=== PATIENT | male | born 1940 | race Caucasian/White ===

== ENCOUNTER 2018-11-24 07:57 | Day surgery (SDC) | payer MEDICARE ==
[~2018-11-24 07:57] MED LIST: Lactated Ringers 1,000 ML IV SCH; Sodium Chloride 0.9% 10 ML SDV IV PRN; Sodium Chloride 0.9% 10 ML Syringe FLUSH PRN; Sodium Chloride 0.9% 2.5 ML Syringe FLUSH PRN; ceFAZolin 1 GM in Premix Bag 1 BAG IV ONE
[2018-11-24] MEDS ORDERED: Propofol 200 MG/20 ML SDV ONE (08:55)
--- NOTE | 2018-11-24 09:08 | PCM.PREANE ---
Preanesthetic Assessment - Anesthesia/Transfusion/Family Hx Anesthesia History: Prior Anesthesia Without Reaction Family History of Anesthesia Reaction: No Transfusion History: No Prior Transfusion(s) Intubation History: Unknown - Review of Systems General: No Symptoms Pulmonary: No Symptoms Cardiovascular: No Symptoms Gastrointestinal: No Symptoms Neurological: No Symptoms Other: Reports: None - Physical Assessment NPO Status Date: 11/23/18 NPO Status Time: 11:59 O2 Sat by Pulse Oximetry: 94 Respiratory Rate: 18 Vital Signs: Last Vital Signs Temp 36.9 C 11/24/18 08:10 Pulse 90 11/24/18 08:10 Resp 18 11/24/18 08:10 BP 139/89 11/24/18 08:10 Pulse Ox 94 L 11/24/18 08:10 Height: 5 ft 10 in Weight: 88.451 kg ASA Class: 3 Mental Status: Alert & Oriented x3 Airway Class: Mallampati = 2 Dentition: Reports: Dentures (upper and lower) Thyro-Mental Finger Breadths: 3 Mouth Opening Finger Breadths: 3 ROM/Head Extension: Full Lungs: Clear to Auscultation, Normal Respiratory Effort, Decreased Breath Sounds Cardiovascular: Regular Rate, Regular Rhythm - Allergies Allergies/Adverse Reactions: Allergies Allergy/AdvReac Type Severity Reaction Status Date / Time Sulfa (Sulfonamide Allergy Cannot Verified 11/22/18 13:24 Antibiotics) Remember - Blood Blood Available: No - Anesthesia Plan Pre-Op Medication Ordered: None - Acknowledgements Anesthesia Type Planned: Spinal Pt an Appropriate Candidate for the Planned Anesthesia: Yes Alternatives and Risks of Anesthesia Discussed w Pt/Guardian: Yes Pt/Guardian Understands and Agrees with Anesthesia Plan: Yes PreAnesthesia Questionnaire HEENT History: Reports: Other (See Below) Other HEENT History: wears glasses, has upper and lower dentures Respiratory History: Reports: COPD, SOB (after 1-2 blocks walk, sats 91% on room air ') Musculoskeletal History: Reports: Gout - Past Surgical History HEENT Surgical History: Reports: Tonsillectomy - SUBSTANCE USE Smoking Status *Q: Former Smoker Tobacco Use Within Last Twelve Months: No Recreational Drug Use History: No - HOME MEDS Home Medications: Home Meds Albuterol [Ventolin HFA] 1 puff INH ASDIRECTED PRN 11/22/18 [History] Allopurinol [Zyloprim] 100 mg PO ASDIRECTED PRN 11/22/18 [History] Ciprofloxacin HCl [Cipro] 500 mg PO BID 11/22/18 [History] Salmeterol Xinafoate [Serevent Diskus] 1 puff INH BID 11/22/18 [History] Tiotropium [place] [Spiriva Respimat] 2 puff INH QPM 11/22/18 [History] - CURRENT (IN HOUSE) MEDS Current Meds: Current Medications Lactated Ringer's (Ringers, Lactated) 1,000 mls @ 100 mls/hr IV ASDIRECTED TRANG Last Admin: 11/24/18 08:20 Dose: 100 mls/hr Sodium Chloride (Saline Flush) 10 ml FLUSH ASDIRECTED PRN PRN Reason: Keep Vein Open Sodium Chloride (Saline Flush) 2.5 ml FLUSH ASDIRECTED PRN PRN Reason: Keep Vein Open Sodium Chloride (Normal Saline) 10 ml IV ASDIRECTED PRN PRN Reason: IV Use Discontinued Medications Cefazolin Sodium/Dextrose 1 gm (/ Premix) 50 mls @ 100 mls/hr IV ONCALL ONE Stop: 11/24/18 00:30 Propofol (Diprivan 20 Ml) Confirm Administered Dose 200 mg .ROUTE .STK-MED ONE Stop: 11/24/18 08:56
[2018-11-24] MEDS ORDERED: fentaNYL 100 MCG/2 ML SDV ONE (09:22)
[2018-11-24] MEDS ORDERED: Ondansetron 4 MG/2 ML SDV ONE (09:33)
[2018-11-24] MEDS ORDERED: ePHEDrine 50 MG/ML SDV ONE (10:14)
[2018-11-24] MEDS ORDERED: Allopurinol 100 MG Tab PO PRN (10:47)
[2018-11-24] MEDS ORDERED: Albuterol 8 GM Inhaler INH PRN (10:47)
--- NOTE | 2018-11-24 14:21 | OR ---
SURGEON: Lissette Florez M.D. 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 OPERATION: TURBT. DESCRIPTION OF PROCEDURE: The patient was given spinal anesthesia. He is in the dorsal lithotomy position, prepped and draped in sterile drapes. A 26-Barb[place] resectoscope was introduced into the bladder without difficulty. The tumor was resected in its entirety. Tumor was submitted in 2 specimens; the tumor as the first specimen and base of bladder tumor as second specimen. The tumor appeared solid and is potentially invasive. Estimated blood loss was minimal. At the end, an 18- Barb[place] Coude tip catheter was placed in the bladder connected to straight drainage. PLAN: I will see the patient in the first part of next week to discuss the pathology report. JOSEFINA / MARY /[id number]
[2018-11-24] MEDS ORDERED: Non-Formulary Medication 1 Each (Tiotropium Bromide [Spiriva Respimat] 2 PUFF) INH SCH (18:00)
[2018-11-24] MEDS ORDERED: Ciprofloxacin 500 MG Tab PO SCH (21:00)
[2018-11-24] MEDS ORDERED: Salmeterol Xinafoate 50 Mcg 28 Puff/Diskus INH SCH (21:00)
== END 2018-11-24 13:28 | disposition home or self-care (01) ==
LOC: MW.SDS 07:57
PROVIDERS: ATTEND Urology
DX: C67.3 Malignant neoplasm of anterior wall of bladder (principal); E11.9 Type 2 diabetes mellitus without complications; J98.2 Interstitial emphysema; M10.9 Gout, unspecified; Z88.2 Allergy status to sulfonamides; Z87.891 Personal history of nicotine dependence; Z79.899 Other long term (current) drug therapy
CPT/HCPCS: 52240; 88305; 88307; J2405; J2704; J3010; J7120; 00912

== ENCOUNTER 2018-11-24 23:18 | Emergency (ER) | payer MEDICARE ==
--- NOTE | 2018-11-24 23:49 | EDM.PDOC ---
ED HPI GENERAL MEDICAL PROBLEM - General Chief Complaint: Genitourinary Problem Stated Complaint: TROUBLE URINATING AFTER SURGERY Time Seen by Provider: 11/24/18 23:41 - History of Present Illness INITIAL COMMENTS - FREE TEXT/NARRATIVE: HISTORY AND PHYSICAL: History of present illness: The patient is a 77-year-old male who underwent same-day surgery with Dr. Florez for removal of a bladder tumor this morning and was discharged postoperatively with a Cid catheter in place but he says that it became clogged and was not draining at about 4 PM. He called the nurse here at the hospital and he was instructed to cut the balloon and removed the catheter. He says that since that time he has only had a small amount of dribbling of urine and he feels like he is retaining urine. He has pressure in his suprapubic area but no flank pain no upper abdominal pain no nausea vomiting lightheadedness dizziness chest pain or shortness of breath. He says that there was blood in his urine prior to removal and he thinks it just got clogged up. He was told by Dr. Florez that this would occur. Review of systems: As per history of present illness and below otherwise all systems reviewed and negative. Past medical history: As per history of present illness and as reviewed below otherwise noncontributory. Surgical history: As per history of present illness and as reviewed below otherwise noncontributory. Social history: No reported history of drug or alcohol abuse. Family history: As per history of present illness and as reviewed below otherwise noncontributory. Physical exam: General: Well-developed well-nourished man who is nontoxic and vital signs are noted by me HEENT: Atraumatic, normocephalic, negative for conjunctival pallor or scleral icterus, mucous membranes moist, throat clear, neck supple, nontender, trachea midline. Lungs: Clear to auscultation, breath sounds equal bilaterally, chest nontender. Heart: S1S2, regular, negative for clicks, rubs, or JVD. Abdomen: Soft, nondistended, there is suprapubic tenderness and fullness of the bladder is appreciated.. Negative for masses or hepatosplenomegaly. Negative for costovertebral tenderness. Pelvis: Stable nontender. Genitourinary: Deferred. Rectal: Deferred. Extremities: Atraumatic, negative for cords or calf pain. Neurovascular unremarkable. Neuro: Awake, alert, oriented. Cranial nerves II through XII unremarkable. Cerebellum unremarkable. Motor and sensory unremarkable throughout. Exam nonfocal. Diagnostics: None Therapeutics: Cid catheter placement with leg bag, instructions on irrigation per nursing [id number]: After [place] was notified of this case and agrees with care plan of the knee and the patient home with ability to irrigate the Cid if it stops draining. Impression: Urinary retention postoperatively status post bladder tumor removal Definitive disposition and diagnosis as appropriate pending reevaluation and review of above. suprapubic Pain Score (Numeric/FACES): 7 - Related Data Allergies Allergy/AdvReac Type Severity Reaction Status Date / Time Sulfa (Sulfonamide Allergy Cannot Verified 11/24/18 23:26 Antibiotics) Remember Home Meds: Home Meds Albuterol [Ventolin HFA] 1 puff INH ASDIRECTED PRN 11/22/18 [History] Allopurinol [Zyloprim] 100 mg PO ASDIRECTED PRN 11/22/18 [History] Ciprofloxacin HCl [Cipro] 500 mg PO BID 11/22/18 [History] Salmeterol Xinafoate [Serevent Diskus] 1 puff INH BID 11/22/18 [History] Tiotropium [place] [Spiriva Respimat] 2 puff INH QPM 11/22/18 [History] Past Medical History HEENT History: Reports: Other (See Below) Other HEENT History: wears glasses, has upper and lower dentures Respiratory History: Reports: COPD, SOB (after 1-2 blocks walk, sats 91% on room air ') Musculoskeletal History: Reports: Gout - Past Surgical History HEENT Surgical History: Reports: Tonsillectomy ED ROS GENERAL - Review of Systems Review Of Systems: ROS reveals no pertinent complaints other than HPI. ED EXAM, GENERAL - Physical Exam Exam: See Below (See dictation) Course - Vital Signs Last Recorded V/S: Last Vital Signs Temp 36.5 C 11/24/18 23:30 Pulse 105 H 11/24/18 23:30 Resp 18 11/24/18 23:30 BP 141/70 H 11/24/18 23:30 Pulse Ox 93 L 11/24/18 23:30 - Orders/Labs/Meds Orders: Active Orders 24 hr Category Date Time Status Cid Catheter Insertion [Insert Urinary Catheter] [OM. Care 11/24/18 23:46 Ordered PC] Q24H Urinary Catheter Assessment [RC] ASDIRECTED Care 11/24/18 23:47 Active Departure - Departure Time of Disposition: 00:48 Disposition: Home, Self-Care 01 Condition: Good Clinical Impression: Urinary retention - Discharge Information Referrals: Shakeel Cabral MD [Primary Care Provider] - Forms: ED Department Discharge Additional Instructions: The following information is given to patients seen in the emergency department who are being discharged to home. This information is to outline your options for follow-up care. We provide all patients seen in our emergency department with a follow-up referral. The need for follow-up, as well as the timing and circumstances, are variable depending upon the specifics of your emergency department visit. If you don't have a primary care physician on staff, we will provide you with a referral. We always advise you to contact your personal physician following an emergency department visit to inform them of the circumstance of the visit and for follow-up with them and/or the need for any referrals to a consulting specialist. The emergency department will also refer you to a specialist when appropriate. This referral assures that you have the opportunity for followup care with a specialist. All of these measure are taken in an effort to provide you with optimal care, which includes your followup. Under all circumstances we always encourage you to contact your private physician who remains a resource for coordinating your care. When calling for followup care, please make the office aware that this follow-up is from your recent emergency room visit. If for any reason you are refused follow-up, please contact the [facility] emergency department at and ask to speak to the emergency department charge nurse. [facility] [place], [place] [id number] Irrigate the Cid as you are shown by the ER nurse if it stops flowing or it becomes clogged. Take all home medications and keep all appointments with Dr. Florez. Please notify him of any problems or complications and return to ER as needed and as discussed - My Orders Last 24 Hours: My Active Orders 11/24/18 23:46 Cid Catheter Insertion [Insert Urinary Catheter] [OM.PC] Q24H 11/24/18 23:47 Urinary Catheter Assessment [RC] ASDIRECTED - Assessment/Plan Last 24 Hours: My Active Orders 11/24/18 23:46 Cid Catheter Insertion [Insert Urinary Catheter] [OM.PC] Q24H 11/24/18 23:47 Urinary Catheter Assessment [RC] ASDIRECTED
== END 2018-11-25 01:25 | disposition home or self-care (01) ==
LOC: MW.ED 23:18
DX: N99.89 Other postprocedural complications and disorders of genitourinary system (principal); R33.9 Retention of urine, unspecified; J44.9 Chronic obstructive pulmonary disease, unspecified; Z98.890 Other specified postprocedural states; Z88.2 Allergy status to sulfonamides; M10.9 Gout, unspecified; Z79.51 Long term (current) use of inhaled steroids; C67.3 Malignant neoplasm of anterior wall of bladder; E11.9 Type 2 diabetes mellitus without complications; J98.2 Interstitial emphysema; Z87.891 Personal history of nicotine dependence; Z79.899 Other long term (current) drug therapy
CPT/HCPCS: 36415; 51700; 52240; 80053; 85025; 85610; 88305; 88307; 99283; A9270; J2405; J2704; J3010; J7120; 00912

== ENCOUNTER 2018-11-25 22:02 | Emergency (ER) | payer MEDICARE ==
--- NOTE | 2018-11-25 22:09 | EDM.PDOC ---
ED HPI GENERAL MEDICAL PROBLEM - General Chief Complaint: Genitourinary Problem Stated Complaint: CATHETER ISSUES Time Seen by Provider: 11/25/18 22:06 - History of Present Illness INITIAL COMMENTS - FREE TEXT/NARRATIVE: HISTORY AND PHYSICAL: History of present illness: The patient is a 77-year-old male who underwent resection of a bladder tumor yesterday with Dr. Florez in same-day surgery and was discharged home with a catheter in place which subsequently got clogged and was not draining and he contacted the postop nurse who told him to remove it which he did. He did this at 4:30 yesterday and then presented to our ER later that evening to see me saying that he was unable to urinate. A new catheter was placed by nursing without complication and the catheter was irrigated and was producing a lot of blood and clots and the patient and were instructed on how to irrigate the catheter to keep it flowing. Dr. Florez was contacted and said that he wanted the patient to be discharged home with those instructions and tools to irrigate the Cid if it became clogged. The patient now presents to the ED again this evening with complaints that the catheter is not draining despite all of their attempts to get it working and he also has a headache. The patient says that the catheter was draining very well and he did have to irrigated about 12 noon and had no issues with it and then it continued to drain until about 5:00 when they tried irrigated and could not get it open. They're here now to get the Cid reevaluated and to get it back open. The patient has not had any fevers chills nausea vomiting abdominal pain and flank pain does not feel lightheaded or dizzy. He's had no chest pain or shortness of breath and he says that he has a headache and he wasn't sure if he could take anything for it because he's on antibiotics, ciprofloxacin Review of systems: As per history of present illness and below otherwise all systems reviewed and negative. Past medical history: As per history of present illness and as reviewed below otherwise noncontributory. Surgical history: As per history of present illness and as reviewed below otherwise noncontributory. Social history: No reported history of drug or alcohol abuse. Family history: As per history of present illness and as reviewed below otherwise noncontributory. Physical exam: General: Well-developed well-nourished man who is nontoxic and vital signs are noted by me. The patient ambulatory into the ED without issue and is cooperative and moves easily. HEENT: Atraumatic, normocephalic, negative for conjunctival pallor or scleral icterus, mucous membranes moist, throat clear, neck supple, nontender, trachea midline. Lungs: Clear to auscultation, breath sounds equal bilaterally, chest nontender. Heart: S1S2, regular rhythm slightly tachycardic rate of my evaluation but no overt murmurs Abdomen: Soft, nondistended, there is some mild suprapubic discomfort with palpation but no rebound or guarding Negative for masses or hepatosplenomegaly. Pelvis: Stable nontender. Genitourinary: Deferred. Rectal: Deferred. Extremities: Atraumatic, negative for cords or calf pain. Neurovascular unremarkable. Neuro: Awake, alert, oriented. Cranial nerves II through XII unremarkable. Cerebellum unremarkable. Motor and sensory unremarkable throughout. Exam nonfocal. Diagnostics: CBC INR CMP Therapeutics: Nursing will irrigate Cid and if unable to open up will change the Cid catheter Nursing was able to open up the Cid catheter and is now flowing easily. Patient's heart rate has normalized without intervention and his blood pressure on my last evaluation was 120/78. I will again discuss this case with Dr. Florez so he knows mora's events. Impression: Cid catheter malfunction Definitive disposition and diagnosis as appropriate pending reevaluation and review of above. headache Pain Score (Numeric/FACES): 2 - Related Data Allergies Allergy/AdvReac Type Severity Reaction Status Date / Time Sulfa (Sulfonamide Allergy Cannot Verified 11/25/18 22:10 Antibiotics) Remember Home Meds: Home Meds Albuterol [Ventolin HFA] 1 puff INH ASDIRECTED PRN 11/22/18 [History] Allopurinol [Zyloprim] 100 mg PO ASDIRECTED PRN 11/22/18 [History] Ciprofloxacin HCl [Cipro] 500 mg PO BID 11/22/18 [History] Salmeterol Xinafoate [Serevent Diskus] 1 puff INH BID 11/22/18 [History] Tiotropium [place] [Spiriva Respimat] 2 puff INH QPM 11/22/18 [History] Past Medical History HEENT History: Reports: Other (See Below) Other HEENT History: wears glasses, has upper and lower dentures Respiratory History: Reports: COPD, SOB (after 1-2 blocks walk, sats 91% on room air ') Musculoskeletal History: Reports: Gout - Past Surgical History HEENT Surgical History: Reports: Tonsillectomy Social & Family History - Family History Family Medical History: Noncontributory ED ROS GENERAL - Review of Systems Review Of Systems: ROS reveals no pertinent complaints other than HPI. ED EXAM, GENERAL - Physical Exam Exam: See Below (See dictation) Course - Vital Signs Last Recorded V/S: Last Vital Signs Temp 36.8 C 11/25/18 22:10 Pulse 90 11/25/18 22:56 Resp 18 11/25/18 22:10 BP 108/75 11/25/18 22:56 Pulse Ox 95 11/25/18 22:10 - Orders/Labs/Meds Orders: Active Orders 24 hr Category Date Time Status Communication Order [RC] STAT Care 11/25/18 22:09 Active Labs: Laboratory Tests 11/25/18 11/25/18 11/25/18 Range/Units 22:16 22:16 22:16 WBC 8.36 (4.0-11.0) K/uL RBC 3.69 L (4.50-5.90) M/uL Hgb 12.2 L (13.0-17.0) g/dL Hct 37.1 L (38.0-50.0) % MCV 100.5 H (80.0-98.0) fL MCH 33.1 H (27.0-32.0) pg MCHC 32.9 (31.0-37.0) g/dL RDW Std Deviation 48.7 (28.0-62.0) fl RDW Coeff of Mat 14 (11.0-15.0) % Plt Count 144 L (150-400) K/uL MPV 9.90 (7.40-12.00) fL Add Manual Diff YES Neutrophils % (Manual) 56 (48.0-80.0) % Band Neutrophils % 2 % Lymphocytes % (Manual) 27 (16.0-40.0) % Monocytes % (Manual) 13 (0.0-15.0) % Eosinophils % (Manual) 2 (0.0-7.0) % Absolute Seg Neuts 4.7 (1.4-5.7) Band Neutrophils # 0.2 Lymphocytes # (Manual) 2.3 (0.6-2.4) Monocytes # (Manual) 1.1 H (0.0-0.8) Eosinophils # (Manual) 0.2 (0.0-0.7) INR 1.10 Sodium 138 (136-148) mmol/L Potassium 4.1 (3.5-5.1) mmol/L Chloride 103 (98-107) mmol/L Carbon Dioxide 26.0 (21.0-32.0) mmol/L BUN 19 H (7.0-18.0) mg/dL Creatinine 1.0 (0.8-1.3) mg/dL Est Cr Clr Drug Dosing 62.86 mL/min Estimated GFR (MDRD) > 60.0 ml/min Glucose 176 H (74-106) mg/dL Calcium 9.2 (8.5-10.1) mg/dL Total Bilirubin 0.4 (0.2-1.0) mg/dL AST 18 (15-37) IU/L ALT 27 (14-63) IU/L Alkaline Phosphatase 64 (46-116) U/L Total Protein 7.2 (6.4-8.2) g/dL Albumin 3.8 (3.4-5.0) g/dL Globulin 3.4 (2.6-4.0) g/dL Albumin/Globulin Ratio 1.1 (0.9-1.6) Meds: Medications Discontinued Medications Generic Name Dose Route Start Last Admin Trade Name Dayneq PRN Reason Stop Dose Admin Acetaminophen 1,000 mg 11/25/18 22:17 11/25/18 22:47 Tylenol Extra Strength PO 11/25/18 22:18 1,000 mg ONETIME ONE Administration Departure - Departure Time of Disposition: 23:10 Disposition: Home, Self-Care 01 Condition: Good Clinical Impression: Malfunction of Cid catheter - Discharge Information Referrals: Shakeel Cabral MD [Primary Care Provider] - Forms: ED Department Discharge Additional Instructions: The following information is given to patients seen in the emergency department who are being discharged to home. This information is to outline your options for follow-up care. We provide all patients seen in our emergency department with a follow-up referral. The need for follow-up, as well as the timing and circumstances, are variable depending upon the specifics of your emergency department visit. If you don't have a primary care physician on staff, we will provide you with a referral. We always advise you to contact your personal physician following an emergency department visit to inform them of the circumstance of the visit and for follow-up with them and/or the need for any referrals to a consulting specialist. The emergency department will also refer you to a specialist when appropriate. This referral assures that you have the opportunity for followup care with a specialist. All of these measure are taken in an effort to provide you with optimal care, which includes your followup. Under all circumstances we always encourage you to contact your private physician who remains a resource for coordinating your care. When calling for followup care, please make the office aware that this follow-up is from your recent emergency room visit. If for any reason you are refused follow-up, please contact the [facility] emergency department at and ask to speak to the emergency department charge nurse. [facility] [address] [place] [id number] Continue with all home medications including the antibiotic your given by Dr. Florez and contact his office on Wednesday morning to check in and let him know how you are doing. Continue to irrigate the Cid catheter as you need for any blockages and return to ER as needed and as discussed. - My Orders Last 24 Hours: My Active Orders 11/25/18 22:09 Communication Order [RC] STAT - Assessment/Plan Last 24 Hours: My Active Orders 11/25/18 22:09 Communication Order [RC] STAT
[2018-11-25] MEDS ORDERED: Acetaminophen 500 MG Tab PO ONE (22:17)
[2018-11-25 22:42] LABS: BLOOD UREA NITROGEN,BUN 19 mg/dL (7.0-18.0); CHLORIDE,CL 103 mmol/L (98-107); GLUCOSE RANDOM 176 mg/dL (74-106); POTASSIUM,K 4.1 mmol/L (3.5-5.1); SODIUM,NA 138 mmol/L (136-148)
== END 2018-11-25 23:19 | disposition home or self-care (01) ==
LOC: MW.ED 22:02
DX: T83.091A Other mechanical complication of indwelling urethral catheter, initial encounter (principal); J44.9 Chronic obstructive pulmonary disease, unspecified; M10.9 Gout, unspecified; Z88.2 Allergy status to sulfonamides; Z79.51 Long term (current) use of inhaled steroids
CPT/HCPCS: 36415; 51700; 80053; 85025; 85610; 99283; A9270

== ENCOUNTER 2018-11-26 10:02 | Emergency (ER) | payer MEDICARE ==
--- NOTE | 2018-11-26 10:34 | EDM.PDOC ---
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 The day after the surgery, patient was having a similar issue and had contacted the postop nurse who instructed him to the remove the catheter. He then presented to the ER 2 days ago with not being able to urinate. In the ER, they placed a new catheter without complications and he was irrigated and drinking and patient was discharged with instructions on irrigation Cid catheter. Patient also presented approximately 12 hours ago with the same complaint of the catheter not draining. Approximately 12 hours ago , nursing staff was able to irrigate the Cid and patient was discharged from the ED. Patient presents again, now 12 hours from last visit in order to get the Cid reevaluated to get it back open. Patient states when he had left the ER 12 hours ago and the bag was draining appropriately and then he had gone to bed. Patient states he woke up in the middle the night with a sensation of needing to urinate. Patient states he had tried irrigating the catheter on several occasions since the middle of the night without being successful. Patient now is here in the ED for assistance with getting the catheter to drain properly. Throughout all of these ER visits, Dr. Florez was notified and patient does have an appointment with Dr. Florez Wednesday at 8 AM. Patient denies any new symptoms or any other concerns at this time. Patient denies fever, chills, chest pain, shortness of breath, or cough. Denies headache, neck stiff ness, change in vision, syncope, or near syncope. Denies nausea, vomiting, abdominal pain, diarrhea, constipation, or dysuria. Has not noted any blood in urine or stool. Patient has been eating and drinking appropriately. Review of systems: As per history of present illness and below otherwise all systems reviewed and negative. Past medical history: As per history of present illness and as reviewed below otherwise noncontributory. Surgical history: As per history of present illness and as reviewed below otherwise noncontributory. Social history: See social history for further information Family history: As per history of present illness and as reviewed below otherwise noncontributory. Physical exam: General: Patient is alert, oriented, and in no acute distress. Patient sitting comfortably on exam table. HEENT: Atraumatic, normocephalic, pupils equal and reactive bilaterally, negative for conjunctival pallor or scleral icterus, mucous membranes moist, TMs normal bilaterally, throat clear, neck supple, nontender, trachea midline. No drooling or trismus noted. No meningeal signs. No hot potato voice noted. Lungs: Clear to auscultation, breath sounds equal bilaterally, chest nontender. Heart: S1S2, regular rate and rhythm without overt murmur Abdomen: Soft, nondistended, nontender. Negative for masses or hepatosplenomegaly. Negative for costovertebral tenderness. Pelvis: Stable nontender. Genitourinary: Deferred. Rectal: Deferred. Skin: Intact, warm, dry. No lesions or rashes noted. Extremities: Atraumatic, negative for cords or calf pain. Neurovascular unremarkable. Neuro: Awake, alert, oriented. Cranial nerves II through XII unremarkable. Cerebellum unremarkable. Motor and sensory unremarkable throughout. Exam nonfocal. Notes: Nursing staff did find a clot at the very end of the catheter where it meets the leg bag. After removing this clot, was able to get 300 mL of urine output and urine flowing appropriately into leg bag. Patient remains asymptomatic and without any new concerns. Discussed the importance for follow-up with Dr. Florez. Voices understanding and is agreeable to plan of care. Denies any further questions or concerns at this time. Diagnostics: None Therapeutics: Cid tubing irrigation Prescription: None Impression: Medical Screening Exam Plan: 1. You can continue to irrigate the Cid catheter to as demonstrated and as discussed. Also, reminder to flush the tubing of the bag. 2. Follow-up with Dr. Florez as scheduled and as discussed. Return to the ED as needed and as discussed. Definitive disposition and diagnosis as appropriate pending reevaluation and review of above. Bladder Pain Score (Numeric/FACES): 5 - Related Data Allergies Allergy/AdvReac Type Severity Reaction Status Date / Time Sulfa (Sulfonamide Allergy Cannot Verified 11/26/18 10:05 Antibiotics) Remember Home Meds: Home Meds Albuterol [Ventolin HFA] 1 puff INH ASDIRECTED PRN 11/22/18 [History] Allopurinol [Zyloprim] 100 mg PO ASDIRECTED PRN 11/22/18 [History] Ciprofloxacin HCl [Cipro] 500 mg PO BID 11/22/18 [History] Salmeterol Xinafoate [Serevent Diskus] 1 puff INH BID 11/22/18 [History] Tiotropium Peggs [Spiriva Respimat] 2 puff INH QPM 11/22/18 [History] Past Medical History HEENT History: Reports: Other (See Below) Other HEENT History: wears glasses, has upper and lower dentures Cardiovascular History: Reports: None Respiratory History: Reports: COPD, SOB (after 1-2 blocks walk, sats 91% on room air ') Gastrointestinal History: Reports: None Genitourinary History: Reports: None Musculoskeletal History: Reports: Gout Neurological History: Reports: None Psychiatric History: Reports: None Endocrine/Metabolic History: Reports: None Hematologic History: Reports: None Immunologic History: Reports: None Oncologic (Cancer) History: Reports: None Dermatologic History: Reports: None - Infectious Disease History Infectious Disease History: Reports: None - Past Surgical History HEENT Surgical History: Reports: Tonsillectomy Social & Family History - Family History Family Medical History: Noncontributory ED ROS GENERAL - Review of Systems Review Of Systems: ROS reveals no pertinent complaints other than HPI. ED EXAM, GENERAL - Physical Exam Exam: See Below (see dictation) Course - Vital Signs Last Recorded V/S: Last Vital Signs Temp 36.8 C 11/26/18 10:05 Pulse 93 11/26/18 10:05 Resp 18 11/26/18 10:05 BP 122/76 11/26/18 10:05 Pulse Ox Departure - Departure Time of Disposition: 10:48 Disposition: Home, Self-Care 01 Clinical Impression: Encounter for medical screening examination - Discharge Information Referrals: PCP,Unknown [Primary Care Provider] - Forms: ED Department Discharge Additional Instructions: The following information is given to patients seen in the emergency department who are being discharged to home. This information is to outline your options for follow-up care. We provide all patients seen in our emergency department with a follow-up referral. The need for follow-up, as well as the timing and circumstances, are variable depending upon the specifics of your emergency department visit. If you don't have a primary care physician on staff, we will provide you with a referral. We always advise you to contact your personal physician following an emergency department visit to inform them of the circumstance of the visit and for follow-up with them and/or the need for any referrals to a consulting specialist. The emergency department will also refer you to a specialist when appropriate. This referral assures that you have the opportunity for follow-up care with a specialist. All of these measure are taken in an effort to provide you with optimal care, which includes your follow-up. Under all circumstances we always encourage you to contact your private physician who remains a resource for coordinating your care. When calling for follow-up care, please make the office aware that this follow-up is from your recent emergency room visit. If for any reason you are refused follow-up, please contact the [facility] Emergency Department at and asked to speak to the emergency department charge nurse. [facility] [address] [place] [address] [place] [address] 1. You can continue to irrigate the Cid catheter to as demonstrated and as discussed. Also, reminder to flush the tubing of the bag. 2. Follow-up with Dr. Florez as scheduled and as discussed. Return to the ED as needed and as discussed.
== END 2018-11-26 11:16 | disposition home or self-care (01) ==
LOC: MW.ED 10:02
DX: Z13.9 Encounter for screening, unspecified (principal); J44.9 Chronic obstructive pulmonary disease, unspecified; Z88.2 Allergy status to sulfonamides; Z79.899 Other long term (current) drug therapy
CPT/HCPCS: 99282; 99283

== ENCOUNTER 2018-11-27 23:24 | Emergency (ER) | payer MEDICARE ==
--- NOTE | 2018-11-27 23:45 | EDM.PDOC ---
ED HPI GENERAL MEDICAL PROBLEM - General Chief Complaint: Genitourinary Problem Stated Complaint: CATHETER ISSUES Time Seen by Provider: 11/27/18 23:25 - History of Present Illness INITIAL COMMENTS - FREE TEXT/NARRATIVE: HISTORY AND PHYSICAL: History of present illness: Patient is a 77-year-old male who is well-known to me as I'm seeing him in the ED after his surgery with Dr. Florez on November 24 for removal of a bladder tumor and having recurrent problems with his Cid catheter. The patient has been here 3 prior for blockage of the Cid catheter and poor drainage. He was treated all prior times with just some irrigation of the catheter without having to re-change it. The patient says that today he was noticing that the urine output was becoming more pink in color and less bloody and he was not seeing as many clots or mucous. He said he irrigated it several times just to make sure it was working and then this evening he said that there was diminished flow and he was concerned so he came here. He says that he didn't feel like he could irrigated properly. He does not feel like he has excessive amount of urine in his bladder as he has been on top of this and following it very closely. He has no systemic complaints of fever chills nausea vomiting or abdominal pain. He is not lightheaded or dizzy. He has an appointment for follow -up with Dr. Florez on Wednesday and he plans on calling him in the morning, Wednesday. On 2 of the patient's prior episodes with me I did notify Dr. Florez of the problems so he is aware. Review of systems: As per history of present illness and below otherwise all systems reviewed and negative. Past medical history: As per history of present illness and as reviewed below otherwise noncontributory. Surgical history: As per history of present illness and as reviewed below otherwise noncontributory. Social history: No reported history of drug or alcohol abuse. Family history: As per history of present illness and as reviewed below otherwise noncontributory. Physical exam: General: Well-developed well-nourished man who is nontoxic and vital signs are noted by me HEENT: Atraumatic, normocephalic, negative for conjunctival pallor or scleral icterus, mucous membranes moist, throat clear, neck supple, nontender, trachea midline. Lungs: Clear to auscultation, breath sounds equal bilaterally, chest nontender. Heart: S1S2, regula rate and rhythm no overt murmurs Abdomen: Soft, nondistended, nontender. Pelvis: Deferred Genitourinary: Deferred. Rectal: Deferred. Extremities: Atraumatic, no pedal edema and full range of motion Neurovascular unremarkable. Neuro: Awake, alert, oriented. Cranial nerves II through XII unremarkable. Cerebellum unremarkable. Motor and sensory unremarkable throughout. Exam nonfocal. Dark pink/light red fluid/urine is seen in the leg bag as well as the tubing of the Cid catheter. Diagnostics: none Therapeutics: Irrigation of Cid After nursing attempted to irrigate the Cid she was unable so the Cid catheter was changed for sterile protocol. Impression: Cid catheter malfunction Definitive disposition and diagnosis as appropriate pending reevaluation and review of above. - Related Data Allergies Allergy/AdvReac Type Severity Reaction Status Date / Time Sulfa (Sulfonamide Allergy Cannot Verified 11/27/18 23:33 Antibiotics) Remember Home Meds: Home Meds Albuterol [Ventolin HFA] 1 puff INH ASDIRECTED PRN 11/22/18 [History] Allopurinol [Zyloprim] 100 mg PO ASDIRECTED PRN 11/22/18 [History] Ciprofloxacin HCl [Cipro] 500 mg PO BID 11/22/18 [History] Salmeterol Xinafoate [Serevent Diskus] 1 puff INH BID 11/22/18 [History] Tiotropium Peterman [Spiriva Respimat] 2 puff INH QPM 11/22/18 [History] Past Medical History HEENT History: Reports: Other (See Below) Other HEENT History: wears glasses, has upper and lower dentures Cardiovascular History: Reports: None Respiratory History: Reports: COPD, SOB Gastrointestinal History: Reports: None Genitourinary History: Reports: None Musculoskeletal History: Reports: Gout Neurological History: Reports: None Psychiatric History: Reports: None Endocrine/Metabolic History: Reports: None Hematologic History: Reports: None Immunologic History: Reports: None Oncologic (Cancer) History: Reports: None Dermatologic History: Reports: None - Infectious Disease History Infectious Disease History: Reports: None - Past Surgical History Head Surgeries/Procedures: Reports: None HEENT Surgical History: Reports: Tonsillectomy Male Surgical History: Reports: Other (See Below) Other Male Surgeries/Procedures: Prostate surgery Social & Family History - Family History Family Medical History: Noncontributory - Tobacco Use Smoking Status *Q: Former Smoker Used Tobacco, but Quit: No - Caffeine Use Caffeine Use: Reports: Coffee - Recreational Drug Use Recreational Drug Use: No ED ROS GENERAL - Review of Systems Review Of Systems: ROS reveals no pertinent complaints other than HPI. ED EXAM, GENERAL - Physical Exam Exam: See Below (See dictation) Course - Vital Signs Last Recorded V/S: Last Vital Signs Temp 36.2 C 11/27/18 23:30 Pulse 92 11/27/18 23:30 Resp 18 11/27/18 23:30 BP 150/88 H 11/27/18 23:30 Pulse Ox 95 11/27/18 23:30 - Orders/Labs/Meds Orders: Active Orders 24 hr Category Date Time Status Communication Order [RC] STAT Care 11/28/18 00:09 Ordered Departure - Departure Time of Disposition: 00:09 Disposition: Home, Self-Care 01 Condition: Good Clinical Impression: Malfunction of Cid catheter Qualifiers: Encounter type: subsequent encounter Qualified Code(s): T83.011D - Breakdown ( mechanical) of indwelling urethral catheter, subsequent encounter - Discharge Information Referrals: PCP,None [Primary Care Provider] - Forms: ED Department Discharge Additional Instructions: The following information is given to patients seen in the emergency department who are being discharged to home. This information is to outline your options for follow-up care. We provide all patients seen in our emergency department with a follow-up referral. The need for follow-up, as well as the timing and circumstances, are variable depending upon the specifics of your emergency department visit. If you don't have a primary care physician on staff, we will provide you with a referral. We always advise you to contact your personal physician following an emergency department visit to inform them of the circumstance of the visit and for follow-up with them and/or the need for any referrals to a consulting specialist. The emergency department will also refer you to a specialist when appropriate. This referral assures that you have the opportunity for followup care with a specialist. All of these measure are taken in an effort to provide you with optimal care, which includes your followup. Under all circumstances we always encourage you to contact your private physician who remains a resource for coordinating your care. When calling for followup care, please make the office aware that this follow-up is from your recent emergency room visit. If for any reason you are refused follow-up, please contact the [facility] emergency department at and ask to speak to the emergency department charge nurse. [facility] [place] [address] Please continue to do Cid care and irrigation as shown to you by nursing. Please call Dr. Florez in the morning and update him on your visits to the ED as well as to confirm that he wants to keep your appointment on Wednesday and not change it to an earlier time. Return to ER as needed and as discussed. Continue all home medication - My Orders Last 24 Hours: My Active Orders 11/28/18 00:09 Communication Order [RC] STAT - Assessment/Plan Last 24 Hours: My Active Orders 11/28/18 00:09 Communication Order [RC] STAT
== END 2018-11-28 00:15 | disposition home or self-care (01) ==
LOC: MW.ED 23:24
DX: T83.011D Breakdown (mechanical) of indwelling urethral catheter, subsequent encounter (principal); Z88.2 Allergy status to sulfonamides; Z87.891 Personal history of nicotine dependence
CPT/HCPCS: 51702; 99283

== ENCOUNTER 2019-06-03 22:07 | Observation (INO) | payer MEDICARE ==
[2019-06-03] MEDS ORDERED: Sodium Chloride 0.9% 10 ML Syringe FLUSH PRN (22:39)
[2019-06-03] MEDS ORDERED: Sodium Chloride 0.9% 2.5 ML Syringe FLUSH PRN (22:39)
[2019-06-03 23:35] LABS: BLOOD UREA NITROGEN,BUN 19 mg/dL (7.0-18.0); CARBON DIOXIDE,CO2 23.3 mmol/L (21.0-32.0); CHLORIDE,CL 103 mmol/L (98-107); GLUCOSE RANDOM 203 mg/dL (74-106); POTASSIUM,K 4.4 mmol/L (3.5-5.1); SODIUM,NA 141 mmol/L (136-148)
[2019-06-04] MEDS ORDERED: Sodium Chloride 0.9% 10 ML Syringe FLUSH PRN (00:47)
[2019-06-04] MEDS ORDERED: Sodium Chloride 0.9% 2.5 ML Syringe FLUSH PRN (00:47)
[2019-06-04] MEDS ORDERED: Sodium Chloride 0.9% 10 ML SDV IV PRN (00:47)
[2019-06-04] MEDS ORDERED: Belladonna Alkaloids/Opium 16.2-30 MG Supp RECTAL PRN (00:53)
[2019-06-04] MEDS ORDERED: Albuterol 8 GM Inhaler INH PRN (00:54)
[2019-06-04] MEDS: Lactated Ringers 1,000 ML IV SCH ×2 (01:16→11:12)
--- NOTE | 2019-06-04 01:32 | EDM.PDOC ---
ED HPI GENERAL MEDICAL PROBLEM - General Chief Complaint: Genitourinary Problem Stated Complaint: BLOOD IN UA Time Seen by Provider: 06/03/19 22:35 - History of Present Illness INITIAL COMMENTS - FREE TEXT/NARRATIVE: Pt with pmh of recent bladder mass resection on 05/15 with his catheter taken out on this wednesday presents with dysuria, hematuria, clots in urine and suprapubic pain. No fevers or chills. Lower Abdomen Pain Score (Numeric/FACES): 5 - Related Data Allergies Allergy/AdvReac Type Severity Reaction Status Date / Time ciprofloxacin Allergy and Verified 06/04/19 02:16 elevated blood sugar Sulfa (Sulfonamide Allergy Cannot Verified 11/27/18 23:33 Antibiotics) Remember Home Meds: Home Meds Albuterol [Ventolin HFA] 2 puff INH Q4H PRN 11/22/18 [History] Salmeterol Xinafoate [Serevent Diskus] 1 puff INH BID 11/22/18 [History] Tiotropium [place] [Spiriva Respimat] 2 puff INH QPM 11/22/18 [History] allopurinoL [Zyloprim] 100 mg PO DAILY PRN 11/22/18 [History] Past Medical History HEENT History: Reports: Other (See Below) Other HEENT History: wears glasses, has upper and lower dentures Cardiovascular History: Reports: None Respiratory History: Reports: COPD, SOB Gastrointestinal History: Reports: None Genitourinary History: Reports: Other (See Below) Other Genitourinary History: 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 Last Wednesday, velasco cath removed. Just returned from [facility] today at 4 pm Musculoskeletal History: Reports: Gout Neurological History: Reports: None Psychiatric History: Reports: None Endocrine/Metabolic History: Reports: None Hematologic History: Reports: None Immunologic History: Reports: None Oncologic (Cancer) History: Reports: None Dermatologic History: Reports: None - Infectious Disease History Infectious Disease History: Reports: None - Past Surgical History Head Surgeries/Procedures: Reports: None HEENT Surgical History: Reports: Tonsillectomy Male Surgical History: Reports: Other (See Below) Other Male Surgeries/Procedures: Prostate surgery Social & Family History - Family History Family Medical History: Noncontributory - Tobacco Use Smoking Status *Q: Former Smoker Used Tobacco, but Quit: Yes Month/Year Tobacco Last Used: unknown - Caffeine Use Caffeine Use: Reports: Coffee - Recreational Drug Use Recreational Drug Use: No ED ROS GENERAL - Review of Systems Review Of Systems: See Below Constitutional: Reports: Fatigue. Denies: Fever, Chills HEENT: Reports: No Symptoms Respiratory: Reports: No Symptoms Cardiovascular: Reports: No Symptoms GI/Abdominal: Reports: Abdominal Pain : Reports: Dysuria, Frequency, Hematuria, Urgency Neurological: Reports: No Symptoms ED EXAM, RENAL/ - Physical Exam Exam: See Below Exam Limited By: No Limitations General Appearance: Alert, WD/WN, No Apparent Distress Head: Atraumatic, Normocephalic Neck: Normal Inspection Respiratory/Chest: No Respiratory Distress, No Accessory Muscle Use Cardiovascular: Regular Rate, Rhythm GI/Abdominal: No Distention Back Exam: Normal Inspection Extremities: Normal Inspection Neurological: Alert, Oriented, Normal Cognition, Normal Gait Skin Exam: Warm, Dry, Intact Course - Vital Signs Last Recorded V/S: Last Vital Signs Temp 99.1 F 06/04/19 02:05 Pulse 90 06/04/19 02:05 Resp 18 06/04/19 02:05 BP 115/70 06/04/19 02:05 Pulse Ox 96 06/04/19 02:05 - Orders/Labs/Meds Orders: Active Orders 24 hr Category Date Time Status Patient Status [ADT] Routine ADT 06/04/19 00:48 Active Regular Diet [DIET] Diet 06/04/19 Breakfast Active Lactated Ringers [Ringers, Lactated] 1,000 ml Med 06/04/19 01:00 Active IV ASDIRECTED Sodium Chloride 0.9% [Normal Saline] Med 06/04/19 00:47 Active 10 ml IV ASDIRECTED PRN Sodium Chloride 0.9% [Saline Flush] Med 06/03/19 22:39 Active 10 ml FLUSH ASDIRECTED PRN Sodium Chloride 0.9% [Saline Flush] Med 06/04/19 00:47 Active 10 ml FLUSH ASDIRECTED PRN Sodium Chloride 0.9% [Saline Flush] Med 06/03/19 22:39 Active 2.5 ml FLUSH ASDIRECTED PRN Sodium Chloride 0.9% [Saline Flush] Med 06/04/19 00:47 Active 2.5 ml FLUSH ASDIRECTED PRN Peripheral IV Insertion Adult [OM.PC] Routine Oth 06/04/19 00:47 Ordered Saline Lock Insert [OM.PC] Stat Oth 06/03/19 22:39 Ordered Resuscitation Status Routine Resus Stat 06/04/19 00:47 Ordered Medication Orders Albuterol (Ventolin Hfa) 0 gm INH ASDIRECTED PRN PRN Reason: Shortness of Breath Bacitracin (Bacitracin Oint) 1 gm TOP TID TRANG Last Admin: 06/04/19 06:44 Dose: 1 applic Belladonna Alkaloids/Opium (B & O Supprettes No. 15a) 1 supp RECTAL Q6H PRN PRN Reason: Bladder Spasms Last Admin: 06/04/19 07:04 Dose: 1 supp Lactated Ringer's (Ringers, Lactated) 1,000 mls @ 100 mls/hr IV ASDIRECTED TRANG Last Admin: 06/04/19 01:16 Dose: 100 mls/hr Salmeterol Xinafoate (Serevent Diskus) 1 puff INH BID TRANG Sodium Chloride (Saline Flush) 10 ml FLUSH ASDIRECTED PRN PRN Reason: Keep Vein Open Sodium Chloride (Saline Flush) 2.5 ml FLUSH ASDIRECTED PRN PRN Reason: Keep Vein Open Sodium Chloride (Saline Flush) 10 ml FLUSH ASDIRECTED PRN PRN Reason: Keep Vein Open Sodium Chloride (Saline Flush) 2.5 ml FLUSH ASDIRECTED PRN PRN Reason: Keep Vein Open Sodium Chloride (Normal Saline) 10 ml IV ASDIRECTED PRN PRN Reason: IV Use Tiotropium [place] (Spiriva Handihaler) 18 mcg INH [facility] Labs: Laboratory Tests 06/03/19 06/03/19 06/03/19 Range/Units 22:24 23:00 23:00 WBC 13.98 H (4.0-11.0) K/uL RBC 3.99 L (4.50-5.90) M/uL Hgb 13.1 (13.0-17.0) g/dL Hct 40.4 (38.0-50.0) % MCV 101.3 H (80.0-98.0) fL MCH 32.8 H (27.0-32.0) pg MCHC 32.4 (31.0-37.0) g/dL RDW Std Deviation 53.9 (28.0-62.0) fl RDW Coeff of Mat 15 (11.0-15.0) % Plt Count 215 (150-400) K/uL MPV 10.10 (7.40-12.00) fL Neut % (Auto) 80.5 H (48.0-80.0) % Lymph % (Auto) 8.6 L (16.0-40.0) % [place] % (Auto) 10.2 (0.0-15.0) % Eos % (Auto) 0.6 (0.0-7.0) % Baso % (Auto) 0.1 (0.0-1.5) % Neut # (Auto) 11.3 H (1.4-5.7) K/uL Lymph # (Auto) 1.2 (0.6-2.4) K/uL [place] # (Auto) 1.4 H (0.0-0.8) K/uL Eos # (Auto) 0.1 (0.0-0.7) K/uL Baso # (Auto) 0.0 (0.0-0.1) K/uL Nucleated RBC % 0.2 /100WBC Nucleated RBCs # 0 K/uL Sodium 141 (136-148) mmol/L Potassium 4.4 (3.5-5.1) mmol/L Chloride 103 (98-107) mmol/L Carbon Dioxide 23.3 (21.0-32.0) mmol/L BUN 19 H (7.0-18.0) mg/dL Creatinine 1.1 (0.8-1.3) mg/dL Est Cr Clr Drug Dosing 54.45 mL/min Estimated GFR (MDRD) > 60.0 ml/min Glucose 203 H (74-106) mg/dL Calcium 9.2 (8.5-10.1) mg/dL Total Bilirubin 0.6 (0.2-1.0) mg/dL AST 17 (15-37) IU/L ALT 26 (14-63) IU/L Alkaline Phosphatase 78 (46-116) U/L Total Protein 7.3 (6.4-8.2) g/dL Albumin 3.9 (3.4-5.0) g/dL Globulin 3.4 (2.6-4.0) g/dL Albumin/Globulin Ratio 1.1 (0.9-1.6) Urine Color RED Urine Appearance BLOODY Urine pH 8.0 (5.0-8.0) Ur Specific Kell 1.020 (1.001-1.035) Urine Protein >=300 H (NEGATIVE) mg/dL Urine Glucose (UA) NEGATIVE (NEGATIVE) mg/dL Urine Ketones NEGATIVE (NEGATIVE) mg/dL Urine Occult Blood LARGE H (NEGATIVE) Urine Nitrite POSITIVE H (NEGATIVE) Urine Bilirubin SMALL H (NEGATIVE) Urine Ictotest NEGATIVE Urine Urobilinogen 0.2 (<2.0) EU/dL Ur Leukocyte Esterase TRACE H (NEGATIVE) Urine RBC TOO NUMEROUS TO CT (0-2/HPF) Urine WBC 20-30 (0-5/HPF) Ur Epithelial Cells RARE (NONE-FEW) Urine Bacteria 1+ H (NEGATIVE) Meds: Medications Generic Name Dose Route Start Last Admin Trade Name Freq PRN Reason Stop Dose Admin Albuterol 0 gm 06/04/19 00:54 Ventolin Hfa INH ASDIRECTED PRN Shortness of Breath Bacitracin 1 gm 06/04/19 06:00 06/04/19 06:44 Bacitracin Oint TOP 1 applic TID TRANG Administration Belladonna Alkaloids/Opium 1 supp 06/04/19 00:53 06/04/19 07:04 B & O Supprettes No. 15a RECTAL 1 supp Q6H PRN Administration Bladder Spasms Lactated Ringer's 1,000 mls @ 100 mls/hr 06/04/19 01:00 06/04/19 01:16 Ringers, Lactated IV 100 mls/hr ASDIRECTED TRANG Administration Salmeterol Xinafoate 1 puff 06/04/19 09:00 Serevent Diskus INH BID TRANG Sodium Chloride 10 ml 06/03/19 22:39 Saline Flush FLUSH ASDIRECTED PRN Keep Vein Open Sodium Chloride 2.5 ml 06/03/19 22:39 Saline Flush FLUSH ASDIRECTED PRN Keep Vein Open Sodium Chloride 10 ml 06/04/19 00:47 Saline Flush FLUSH ASDIRECTED PRN Keep Vein Open Sodium Chloride 2.5 ml 06/04/19 00:47 Saline Flush FLUSH ASDIRECTED PRN Keep Vein Open Sodium Chloride 10 ml 06/04/19 00:47 Normal Saline IV ASDIRECTED PRN IV Use Tiotropium [place] 18 mcg 06/04/19 21:00 Spiriva Handihaler INH BEDTIME TRANG Discontinued Medications Generic Name Dose Route Start Last Admin Trade Name Freq PRN Reason Stop Dose Admin Tobramycin 120 mg/ Sodium 103 mls @ 103 mls/hr 06/04/19 01:00 06/04/19 01:39 Chloride IV 06/04/19 01:01 103 mls/hr ONETIME ONE Administration - Re-Assessments/Exams Free Text/Narrative Re-Assessment/Exam: 06/04/19 08:42 ED work up shows uti and hematuria. Dr. Florez consulted and admits the patient for bladder irrigation. pt and family in agreement with plan. Departure - Departure Time of Disposition: 03:15 Disposition: Refer to Observation Condition: Good Clinical Impression: Hematuria - Discharge Information *PRESCRIPTION DRUG MONITORING PROGRAM REVIEWED*: Not Applicable *COPY OF PRESCRIPTION DRUG MONITORING REPORT IN PATIENT LAZ: Not Applicable Sepsis Event Note - Evaluation Sepsis Screening Result: No Definite Risk - Focused Exam Vital Signs: Vital Signs Temp Pulse Resp BP Pulse Ox 06/03/19 22:32 97.4 F 115 H 18 154/86 H 90 L Date Exam was Performed: 06/04/19 Time Exam was Performed: 08:42 - My Orders Last 24 Hours: My Active Orders 06/03/19 22:39 Sodium Chloride 0.9% [Saline Flush] 10 ml FLUSH ASDIRECTED PRN Sodium Chloride 0.9% [Saline Flush] 2.5 ml FLUSH ASDIRECTED PRN Saline Lock Insert [OM.PC] Stat - Assessment/Plan Last 24 Hours: My Active Orders 06/03/19 22:39 Sodium Chloride 0.9% [Saline Flush] 10 ml FLUSH ASDIRECTED PRN Sodium Chloride 0.9% [Saline Flush] 2.5 ml FLUSH ASDIRECTED PRN Saline Lock Insert [OM.PC] Stat
[2019-06-04] MEDS: Bacitracin Oint 28.35 GM Tube TOP SCH ×3 (06:44→21:11)
[2019-06-04 07:03] LABS: BLOOD UREA NITROGEN,BUN 16 mg/dL (7.0-18.0); CARBON DIOXIDE,CO2 26.8 mmol/L (21.0-32.0); CHLORIDE,CL 104 mmol/L (98-107); GLUCOSE RANDOM 162 mg/dL (74-106); POTASSIUM,K 4.2 mmol/L (3.5-5.1); SODIUM,NA 141 mmol/L (136-148)
[2019-06-04] MEDS ORDERED: Salmeterol Xinafoate 50 Mcg 28 Puff/Diskus INH SCH (09:00)
[2019-06-04] MEDS: TIOTROPIUM INH SCH (13:04)
--- NOTE | 2019-06-04 14:16 | PCM.SN ---
- Free Text/Narrative Note: doing well no bleeding, hgb 11
[2019-06-04] MEDS ORDERED: ALBUTEROL INH PRN (14:45)
[2019-06-04] MEDS: Nitrofurantoin Monohydrate/Macrocrystalline 100 MG Cap PO SCH ×2 (14:54→21:09)
[2019-06-04] MEDS: SALMETEROL XINAFOATE 50 MCG INH SCH (21:10)
[2019-06-05] MEDS: Bacitracin Oint 28.35 GM Tube TOP SCH ×2 (06:23→14:15)
[2019-06-05] MEDS: Nitrofurantoin Monohydrate/Macrocrystalline 100 MG Cap PO SCH (08:54)
[2019-06-05] MEDS: SALMETEROL XINAFOATE 50 MCG INH SCH (08:54)
[2019-06-05] MEDS: TIOTROPIUM INH SCH (14:16)
--- NOTE | 2019-06-06 12:43 | DISCH ---
DATE OF DISCHARGE: 06/05/2019 PRIMARY CARE PHYSICIAN: RAMAKRISHNA VICKERS He was admitted to the hospital on 06/04/2019 with gross hematuria and clot retention. His bladder was irrigated in the ER. He was started on the TUR drip and was admitted to the hospital. His hemoglobin at the time of admission was 13. By next day, the hemoglobin is down to 11. His bleeding has completely stopped. The catheter was taken out. He was able to void and his urine is clear. He is discharged on his previous home medications without anything additional. JOSEFINA / MARY /[id number]
== END 2019-06-05 16:40 | disposition home or self-care (01) ==
LOC: MW.ED 22:07 → MW.MS 06-04 00:48
PROVIDERS: ADMIT Urology; ATTEND Urology
DX: R31.0 Gross hematuria (principal); R33.9 Retention of urine, unspecified
CPT/HCPCS: 36415; 51700; 80048; 80053; 81001; 85025; 96361; 96365; 96366; 99284; A9270; G0378; J3260; J7050; J7120; 99283

== ENCOUNTER 2019-06-06 17:45 | Emergency (ER) | payer MEDICARE ==
[2019-06-06] MEDS ORDERED: traMADol 50 MG Tab PO ONE (20:26)
[2019-06-06] MEDS ORDERED: Nitrofurantoin Monohydrate/Macrocrystalline 100 MG Cap PO ONE ×2 (20:26→20:31)
[2019-06-06] MEDS ORDERED: Phenazopyridine 200 MG Tab PO ONE (20:26)
--- NOTE | 2019-06-06 20:26 | EDM.PDOC ---
ED HPI GENERAL MEDICAL PROBLEM - General Chief Complaint: Genitourinary Problem Stated Complaint: bladder pain Time Seen by Provider: 06/06/19 20:20 Source of Information: Reports: Patient History Limitations: Reports: No Limitations - History of Present Illness INITIAL COMMENTS - FREE TEXT/NARRATIVE: HISTORY AND PHYSICAL: History of present illness: Patient is a 78-year-old male who presents to the emergency room with complaints of bladder pain and dysuria. Patient has a past medical history of a bladder mass resection on 05/15/2019 in [place]. He did present to the emergency room on 06/04/2019 with complaints of hematuria, dysuria and suprapubic pain. He was admitted for IV antibiotics, Velasco catheter and pain management. Dr. Florez, afternoon nanny, discharged him yesterday. Patient states he went home and has been pushing fluids. He has been voiding appropriately but has suprapubic pain. He states he feels like he gets a spasm to his suprapubic area when he feels like he needs to void. When he does go to the bathroom to void he says the time it takes for "the pee to come" takes a while. He does complain of some discomfort at the tip of his penis. He states that this is not a new complaint and he does have a topical ointment he was prescribed to apply. Patient denies any fever, chills, headache, change in vision, syncope or near syncope. Denies any chest pain, back pain, shortness of breath or cough. Denies any nausea, vomiting, diarrhea, constipation or dysuria. Has not noted any blood in urine or stool. Patient has been eating and drinking appropriately. Review of systems: As per history of present illness and below otherwise all systems reviewed and negative. Past medical history: As per history of present illness and as reviewed below otherwise noncontributory. Surgical history: As per history of present illness and as reviewed below otherwise noncontributory. Social history: See social history for further information Family history: As per history of present illness and as reviewed below otherwise noncontributory. Physical exam: General: Well-developed and well-nourished 78-year-old male. Alert and oriented. Nontoxic-appearing and in no acute distress. HEENT: Atraumatic, normocephalic, pupils equal and reactive bilaterally, negative for conjunctival pallor or scleral icterus, mucous membranes moist, TMs normal bilaterally, throat clear, neck supple, nontender, trachea midline. No drooling or trismus noted. No meningeal signs. No hot potato voice noted. Lungs: Clear to auscultation, breath sounds equal bilaterally, chest nontender. Heart: S1S2, regular rate and rhythm without overt murmur Abdomen: Soft, nondistended, nontender. Negative for masses or hepatosplenomegaly. Negative for costovertebral tenderness. Pelvis: Stable, prepubic tenderness. Skin: Intact, warm, dry. No lesions or rashes noted. Extremities: Atraumatic, moves all extremities per self without difficulty or deficits, negative for cords or calf pain. Neurovascular unremarkable. Neuro: Awake, alert, oriented. Cranial nerves II through XII unremarkable. Cerebellum unremarkable. Motor and sensory unremarkable throughout. Exam nonfocal. Notes: Patient states he voided not too long ago while in the waiting area. He does have 300 in his bladder, per the bladder scanner. I did contact Dr. Ridley, urology on-call as he did just see this patient less than 24 hours ago. He recommended that the patient be placed on Macrobid, Pyridium and given something for pain. He would be happy to see the patient in his office if the patient's symptoms do not improve. He does recommend that the patient continue to attempt to make a follow-up appointment with the surgeon in [place] for a postop follow-up appointment. Patient was made aware of all these findings/ discussions and is agreeable. We discussed signs and symptoms that would prompt him to return to the emergency room. Supportive care measures were reviewed and discussed. Voices understanding and is agreeable to plan of care. Denies any further questions or concerns at this time. Diagnostics: None Therapeutics: Macrobid, Pyridium, Tramadol Prescription: Macrobid, Pyridium, Tramadol Impression: Dysuria Plan: 1. Macrobid, antibiotic - 1 tab twice daily x 3 days. Pyridium, for bladder pain - three times daily x 2 days. You can take the Tramadol as needed for bladder pain; one tab every 4 hours as NEEDED. This medication may cause drowsiness, so do not take while driving or needing to be functioning outside the house. 2. Keep pushing fluids. 3. Follow up with Dr Florez if you feel you aren't improving in the next few days. You need to keep your follow up appointment with your urology surgeron in [place]. Return to the ED as needed and as discussed. Definitive disposition and diagnosis as appropriate pending reevaluation and review of above. Bladder Pain Score (Numeric/FACES): 9 - Related Data Allergies Allergy/AdvReac Type Severity Reaction Status Date / Time ciprofloxacin Allergy and Verified 06/06/19 18:22 elevated blood sugar Sulfa (Sulfonamide Allergy Cannot Verified 06/06/19 18:22 Antibiotics) Remember Home Meds: Home Meds Albuterol [Ventolin HFA] 2 puff INH Q4H PRN 11/22/18 [History] Salmeterol Xinafoate [Serevent Diskus] 1 puff INH BID 11/22/18 [History] Tiotropium [place] [Spiriva Respimat] 2 puff INH QPM 11/22/18 [History] allopurinoL [Zyloprim] 100 mg PO DAILY PRN 11/22/18 [History] Cefdinir 300 mg PO BID 06/06/19 [History] Nitrofurantoin Monohyd/M-Cryst [Macrobid 100 mg Capsule] 100 mg PO BID 3 Days # 6 capsule 06/06/19 [Rx] Phenazopyridine [Pyridium] 200 mg PO TID 2 Days #6 tab 06/06/19 [Rx] traMADol [Ultram] 50 mg PO Q4H PRN #15 tab 06/06/19 [Rx] Past Medical History HEENT History: Reports: Other (See Below) Other HEENT History: wears glasses, has upper and lower dentures Cardiovascular History: Reports: None Respiratory History: Reports: COPD, SOB Gastrointestinal History: Reports: None Genitourinary History: Reports: Other (See Below) Other Genitourinary History: 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 Last Wednesday, velasco cath removed. Just returned from [facility] today at 4 pm Musculoskeletal History: Reports: Gout Neurological History: Reports: None Psychiatric History: Reports: None Endocrine/Metabolic History: Reports: None Other Endocrine/Metabolic History: Not on Diabetic medications. Checks blood sugar about 3 or 4 times a week. Hematologic History: Reports: None Immunologic History: Reports: None Oncologic (Cancer) History: Reports: Bladder Other Oncologic History: Will get a gene cath and start chemo in [place]. Not sure when. Dermatologic History: Reports: None - Infectious Disease History Infectious Disease History: Reports: Chicken Pox, Mumps - Past Surgical History Head Surgeries/Procedures: Reports: None HEENT Surgical History: Reports: Tonsillectomy Male Surgical History: Reports: Other (See Below) Other Male Surgeries/Procedures: Prostate surgery Social & Family History - Family History Family Medical History: Noncontributory - Tobacco Use Smoking Status *Q: Former Smoker Used Tobacco, but Quit: Yes Month/Year Tobacco Last Used: 1994 - Caffeine Use Caffeine Use: Reports: Coffee - Recreational Drug Use Recreational Drug Use: No ED ROS GENERAL - Review of Systems Review Of Systems: Comprehensive ROS is negative, except as noted in HPI. ED EXAM, RENAL/ - Physical Exam Exam: See Below (See dictation) Course - Vital Signs Last Recorded V/S: Last Vital Signs Temp 98.5 F 06/06/19 18:23 Pulse 90 06/06/19 18:23 Resp 18 06/06/19 18:23 BP 156/67 H 06/06/19 18:23 Pulse Ox 93 L 06/06/19 18:23 - Orders/Labs/Meds Meds: Medications Discontinued Medications Generic Name Dose Route Start Last Admin Trade Name Freq PRN Reason Stop Dose Admin Nitrofurantoin Macrocrystals 100 mg 06/06/19 20:26 06/06/19 20:31 Macrobid PO 06/06/19 20:27 Not Given ONETIME ONE Nitrofurantoin Macrocrystals 100 mg 06/06/19 20:31 Macrobid PO 06/06/19 20:32 ONETIME ONE Phenazopyridine HCl 200 mg 06/06/19 20:26 Pyridium PO 06/06/19 20:27 ONETIME ONE Tramadol HCl 50 mg 06/06/19 20:26 Ultram PO 06/06/19 20:27 ONETIME ONE Departure - Departure Time of Disposition: 20:34 Disposition: Home, Self-Care 01 Clinical Impression: Dysuria - Discharge Information Prescriptions: Nitrofurantoin Monohyd/M-Cryst [Macrobid 100 mg Capsule] 100 mg PO BID 3 Days # 6 capsule Phenazopyridine [Pyridium] 200 mg PO TID 2 Days #6 tab traMADol [Ultram] 50 mg PO Q4H PRN #15 tab PRN Reason: Pain Instructions: Dysuria Referrals: Shakeel Cabral MD [Primary Care Provider] - Forms: ED Department Discharge Additional Instructions: The following information is given to patients seen in the emergency department who are being discharged to home. This information is to outline your options for follow-up care. We provide all patients seen in our emergency department with a follow-up referral. The need for follow-up, as well as the timing and circumstances, are variable depending upon the specifics of your emergency department visit. If you don't have a primary care physician on staff, we will provide you with a referral. We always advise you to contact your personal physician following an emergency department visit to inform them of the circumstance of the visit and for follow-up with them and/or the need for any referrals to a consulting specialist. The emergency department will also refer you to a specialist when appropriate. This referral assures that you have the opportunity for follow-up care with a specialist. All of these measure are taken in an effort to provide you with optimal care, which includes your follow-up. Under all circumstances we always encourage you to contact your private physician who remains a resource for coordinating your care. When calling for follow-up care, please make the office aware that this follow-up is from your recent emergency room visit. If for any reason you are refused follow-up, please contact the [facility] Emergency Department at and asked to speak to the emergency department charge nurse. [facility] Primary Care [address] [place] [id number] [facility] Specialty Care - Urology [address] [place] [id number] 1. Macrobid, antibiotic - 1 tab twice daily x 3 days. Pyridium, for bladder pain - three times daily x 2 days. You can take the Tramadol as needed for bladder pain; one tab every 4 hours as NEEDED. This medication may cause drowsiness, so do not take while driving or needing to be functioning outside the house. 2. Keep pushing fluids. 3. Follow up with Dr Florez if you feel you aren't improving in the next few days. You need to keep your follow up appointment with your urology surgeron in [place]. Return to the ED as needed and as discussed. Sepsis Event Note - Evaluation Sepsis Screening Result: No Definite Risk - Focused Exam Vital Signs: Vital Signs Temp Pulse Resp BP Pulse Ox 06/06/19 18:23 98.5 F 90 18 156/67 H 93 L Date Exam was Performed: 06/06/19 Time Exam was Performed: 20:36
== END 2019-06-06 21:05 | disposition home or self-care (01) ==
LOC: MW.ED 17:45
DX: R30.0 Dysuria (principal); Z88.2 Allergy status to sulfonamides; Z88.1 Allergy status to other antibiotic agents; Z87.891 Personal history of nicotine dependence
CPT/HCPCS: 51798; 99283; A9270

== ENCOUNTER 2019-06-10 23:50 | Emergency (ER) | payer MEDICARE ==
[2019-06-10] MEDS ORDERED: Ondansetron 4 MG/2 ML SDV IVPUSH ONE (23:56)
[2019-06-11 00:26] LABS: BLOOD UREA NITROGEN,BUN 17 mg/dL (7.0-18.0); CARBON DIOXIDE,CO2 27.3 mmol/L (21.0-32.0); CHLORIDE,CL 98 mmol/L (98-107); GLUCOSE RANDOM 152 mg/dL (74-106); LIPASE 118 U/L (73-393); POTASSIUM,K 4.3 mmol/L (3.5-5.1); SODIUM,NA 137 mmol/L (136-148)
[2019-06-11] MEDS ORDERED: Magnesium Citrate Solution 296 ML Bottle PO ONE ×2 (01:01→01:03)
--- NOTE | 2019-06-11 01:20 | CR ---
INDICATION: Shortness of breath COMPARISON: 01/22/2016 FINDINGS: PA and lateral views of the chest were obtained. Again seen is mild eventration of the right hemidiaphragm. The lungs otherwise remain clear. No focal or diffuse infiltrates are present. The heart remains normal in size. The mediastinum is normal in appearance. The osseous structures are normal in appearance for the patient`s age. IMPRESSION: No active disease seen in the chest. Dictated by Oziel Tran MD @ Jun 11 2019 1:17AM Signed by Dr. Oziel Tran @ Jun 11 2019 1:18AM
--- NOTE | 2019-06-11 01:30 | EDM.PDOC ---
ED HPI GENERAL MEDICAL PROBLEM - General Chief Complaint: Abdominal Pain Stated Complaint: EMS Time Seen by Provider: 06/11/19 00:05 Source of Information: Reports: Patient, EMS - History of Present Illness INITIAL COMMENTS - FREE TEXT/NARRATIVE: The patient is a 78-year-old male emphysema patient with a recent history of bladder cancer and being admitted to the hospital for bladder problems who presents to the ER for some lower abdominal discomfort and nausea and vomiting. The patient states that he was having problems urinating before but although it takes a while for him to get started, he can empty his bladder completely and he is not concerned about urinary retention. The patient states that over the last couple of days since he has been started on some tramadol, the patient has been having some trouble having bowel movements and when he is pushing only small pellets are coming out. He feels like he still needs to go but he cannot get anything out and now he is nauseated. No fevers, no chest pain, no shortness of breath, no coughing, no other acute complaints. EMS was called because of the nausea and vomiting and they state that the patient had a low oxygen levels at around 85% on room air so they placed him on 2 L per nasal cannula. LLQ Pain Score (Numeric/FACES): 4 - Related Data Allergies Allergy/AdvReac Type Severity Reaction Status Date / Time ciprofloxacin Allergy and Verified 06/11/19 00:06 elevated blood sugar Sulfa (Sulfonamide Allergy Cannot Verified 06/11/19 00:06 Antibiotics) Remember Home Meds: Home Meds Albuterol [Ventolin HFA] 2 puff INH Q4H PRN 11/22/18 [History] Salmeterol Xinafoate [Serevent Diskus] 1 puff INH BID 11/22/18 [History] Tiotropium [place] [Spiriva Respimat] 2 puff INH QPM 11/22/18 [History] allopurinoL [Zyloprim] 100 mg PO DAILY PRN 11/22/18 [History] Phenazopyridine [Pyridium] 200 mg PO TID 2 Days #6 tab 06/06/19 [Rx] traMADol [Ultram] 50 mg PO Q4H PRN #15 tab 06/06/19 [Rx] Past Medical History HEENT History: Reports: Other (See Below) Other HEENT History: wears glasses, has upper and lower dentures Cardiovascular History: Reports: None Respiratory History: Reports: COPD, SOB Gastrointestinal History: Reports: None Genitourinary History: Reports: Other (See Below) Other Genitourinary History: 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 Last Wednesday, velasco cath removed. Just returned from [facility] today at 4 pm Musculoskeletal History: Reports: Gout Neurological History: Reports: None Psychiatric History: Reports: None Endocrine/Metabolic History: Reports: None Other Endocrine/Metabolic History: Not on Diabetic medications. Checks blood sugar about 3 or 4 times a week. Hematologic History: Reports: None Immunologic History: Reports: None Oncologic (Cancer) History: Reports: Bladder Other Oncologic History: Will get a gene cath and start chemo in [place]. Not sure when. Dermatologic History: Reports: None - Infectious Disease History Infectious Disease History: Reports: Chicken Pox, Measles - Past Surgical History Head Surgeries/Procedures: Reports: None HEENT Surgical History: Reports: Tonsillectomy Male Surgical History: Reports: Other (See Below) Other Male Surgeries/Procedures: Prostate surgery Social & Family History - Family History Family Medical History: Noncontributory - Tobacco Use Smoking Status *Q: Former Smoker Used Tobacco, but Quit: Yes Month/Year Tobacco Last Used: 1994 - Caffeine Use Caffeine Use: Reports: Coffee - Recreational Drug Use Recreational Drug Use: No ED ROS GENERAL - Review of Systems Review Of Systems: See Below (As of her nausea and vomiting, positive constipation, positive for lower abdominal discomfort, positive for dysuria, insert review of systems) ED EXAM, GI/ABD - Physical Exam Exam: See Below Text/Narrative:: Constitutional: Elderly, nontoxic but looks uncomfortable and is intermittently dry retching without vomiting HEENT.: Normocephalic, Atraumatic, PERRL, EOMI, External ears are atraumatic, nares are patent without epistaxis Neck: Normal range of motion, Trachea Midline, No stridor Respiratory.: No respiratory distress, No tachypnea, Lungs Clear to Auscultation bilaterally without wheezes, rales, or rhonchi Cardiovascular.: Regular rate and Rhythm without murmurs, rubs, or gallops, good peripheral perfusion GI: Mildly obese, abdomen soft and non tender Genital Urinary: Deferred Musculoskeletal: Good range of motion. All 4 extremities present and atraumatic , no edema Back: Full Range of Motion Skin: Warm, Dry, Color is ethnicity appropriate, No acute rash. Lymphatic: No lymphadenopathy noted Neurological: Alert, Awake and oriented x 3, No focal deficits noted appreciate , GCS 15 Psych: Affect, Judgement, mood normal Course - Vital Signs Text/Narrative:: The patient is older with nausea and vomiting and this can be caused by numerous malignant medical and surgical issues -but the patient's abdominal exam is completely benign. He also states that the abdominal discomfort that he has is twofold -one is his bladder discomfort from the bladder problems he already has but he states that this is not an acute issue. He is very insistent that he is not having any problems emptying his bladder and is not concerned about urinary retention. He has no upper abdominal discomfort, and he does not describe it as any pain -he just feels like he has to have a bowel movement. The tramadol is a new medication that he has been started on and although it is weaker than classic opioids such as hydrocodone or oxycodone, etc. it acts on the mu receptor just like those medications and can cause constipation. As a matter fact nausea and constipation are 2 of his largest side effects. The patient was given Zofran 4 mg IV and a work-up had been initiated -troponin and ECG were ordered by nursing staff but I personally do not have any concerns for acute coronary syndrome, and after talking this over the patient neither does he. ECG The ECG was read and interpreted by me. There are p waves before every QRS with a ventricular rate of 82. The DC, QRS, and QT intervals are all normal. [place] is normal. ST segments are baseline and the T wave morphology is normal. Final interpretation is a normal Sinus rhythm and a normal ECG. EMS reported that the patient's oxygen levels were low and that is why they started him on oxygen per nasal cannula. We continued this as we are getting a good waveform and his oxygen levels were anywhere from the low 80s to high 80s on room air. Talking with the patient in detail he has no complaints of any coughing, no fevers, he is not short of breath, unless he really exerts himself. He already has known low home oxygen levels for which he has been working with his primary care physician and they are planning on starting him on home oxygen. This is a chronic problem and the patient is not concerned about it from an acute standpoint. I performed a bedside rectal exam and the patient does not have a rectal impaction. I talked to the patient about options and we ordered him 1 bottle of magnesium citrate, 296 mL and he will take this home and drink it within 30 minutes in order to alleviate his constipation. The patient was also given a prescription for Zofran ODT in our [employer] Meds dispenser. Stable for discharge. Last Recorded V/S: Last Vital Signs Temp 36.6 C 06/11/19 00:03 Pulse 93 06/11/19 01:16 Resp 16 06/11/19 01:16 BP 150/74 H 06/11/19 01:16 Pulse Ox 90 L 06/11/19 01:16 - Orders/Labs/Meds Orders: Active Orders 24 hr Category Date Time Status EKG 12 Lead [EKG Documentation Completion] [RC] STAT Care 06/11/19 00:15 Active Labs: Laboratory Tests 06/10/19 06/10/19 Range/Units 23:55 23:55 WBC 7.02 (4.0-11.0) K/uL RBC 3.73 L (4.50-5.90) M/uL Hgb 12.2 L (13.0-17.0) g/dL Hct 37.7 L (38.0-50.0) % MCV 101.1 H (80.0-98.0) fL MCH 32.7 H (27.0-32.0) pg MCHC 32.4 (31.0-37.0) g/dL RDW Std Deviation 52.4 (28.0-62.0) fl RDW Coeff of Mat 14 (11.0-15.0) % Plt Count 231 (150-400) K/uL MPV 9.90 (7.40-12.00) fL Neut % (Auto) 63.6 (48.0-80.0) % Lymph % (Auto) 20.8 (16.0-40.0) % [place] % (Auto) 14.4 (0.0-15.0) % Eos % (Auto) 1.1 (0.0-7.0) % Baso % (Auto) 0.1 (0.0-1.5) % Neut # (Auto) 4.5 (1.4-5.7) K/uL Lymph # (Auto) 1.5 (0.6-2.4) K/uL [place] # (Auto) 1.0 H (0.0-0.8) K/uL Eos # (Auto) 0.1 (0.0-0.7) K/uL Baso # (Auto) 0.0 (0.0-0.1) K/uL Nucleated RBC % 0.0 /100WBC Nucleated RBCs # 0 K/uL Sodium 137 (136-148) mmol/L Potassium 4.3 (3.5-5.1) mmol/L Chloride 98 (98-107) mmol/L Carbon Dioxide 27.3 (21.0-32.0) mmol/L BUN 17 (7.0-18.0) mg/dL Creatinine 1.2 (0.8-1.3) mg/dL Est Cr Clr Drug Dosing 49.92 mL/min Estimated GFR (MDRD) 58.4 ml/min Glucose 152 H (74-106) mg/dL Calcium 9.3 (8.5-10.1) mg/dL Total Bilirubin 0.6 (0.2-1.0) mg/dL AST 19 (15-37) IU/L ALT 28 (14-63) IU/L Alkaline Phosphatase 71 (46-116) U/L Troponin I < 0.050 (0.000-0.056) ng/mL Total Protein 7.5 (6.4-8.2) g/dL Albumin 3.9 (3.4-5.0) g/dL Globulin 3.6 (2.6-4.0) g/dL Albumin/Globulin Ratio 1.1 (0.9-1.6) Amylase 41 (25-115) U/L Lipase 118 (73-393) U/L Meds: Medications Discontinued Medications Generic Name Dose Route Start Last Admin Trade Name Freq PRN Reason Stop Dose Admin Magnesium Citrate 300 ml 06/11/19 01:01 06/11/19 01:07 Citrate Of Magnesia PO 06/11/19 01:02 Not Given ONETIME ONE Magnesium Citrate 296 ml 06/11/19 01:03 06/11/19 01:15 Citrate Of Magnesia PO 06/11/19 01:04 296 ml ONETIME ONE Administration Ondansetron HCl 4 mg 06/10/19 23:56 06/10/19 23:59 Zofran IVPUSH 06/10/19 23:57 4 mg ONETIME ONE Administration Departure - Departure Time of Disposition: 00:00 Disposition: Home, Self-Care 01 Condition: Good Clinical Impression: Constipation - Discharge Information Instructions: Constipation, Adult, [id number] Referrals: Shakeel Cabral MD [Primary Care Provider] - Forms: ED Department Discharge Additional Instructions: Drink the entire bottle of the magnesium citrate solution within 30 minutes when you get home or in the morning when you get up. You should start having a bowel movement within about 4 to 6 hours. Use the Zofran to help you with nausea. Stop the tramadol prescription. Return if you feel like you are getting worse or any other concerns. Sure you contact your doctor Wednesday to get your home oxygen delivered sooner rather than later. Care Plan Goals: The following information is given to patients seen in the emergency department who are being discharged to home. This information is to outline your options for follow-up care. We provide all patients seen in our emergency department with a follow-up referral. The need for follow-up, as well as the timing and circumstances, are variable depending upon the specifics of your emergency department visit. If you don't have a primary care physician on staff, we will provide you with a referral. We always advise you to contact your personal physician following an emergency department visit to inform them of the circumstance of the visit and for follow-up with them and/or the need for any referrals to a consulting specialist. The emergency department will also refer you to a specialist when appropriate. This referral assures that you have the opportunity for follow-up care with a specialist. All of these measure are taken in an effort to provide you with optimal care, which includes your follow-up. Under all circumstances we always encourage you to contact your private physician who remains a resource for coordinating your care. When calling for follow-up care, please make the office aware that this follow-up is from your recent emergency room visit. If for any reason you are refused follow-up, please contact the [facility] at and asked to speak to the emergency department charge nurse. [facility] [address] [place] [id number] [facility] [address] [place] [id number] Sepsis Event Note - Evaluation Sepsis Screening Result: No Definite Risk - Focused Exam Vital Signs: Vital Signs Temp Pulse Resp BP Pulse Ox 06/11/19 01:16 93 16 150/74 H 90 L 06/11/19 00:03 36.6 C 89 16 137/81 85 L Date Exam was Performed: 06/11/19 Time Exam was Performed: 04:04 - My Orders Last 24 Hours: My Active Orders 06/11/19 00:15 EKG 12 Lead [EKG Documentation Completion] [RC] STAT - Assessment/Plan Last 24 Hours: My Active Orders 06/11/19 00:15 EKG 12 Lead [EKG Documentation Completion] [RC] STAT
== END 2019-06-11 01:40 | disposition home or self-care (01) ==
LOC: MW.ED 23:50
DX: K59.00 Constipation, unspecified (principal); J44.9 Chronic obstructive pulmonary disease, unspecified; M10.9 Gout, unspecified; Z87.891 Personal history of nicotine dependence; Z88.1 Allergy status to other antibiotic agents; Z88.2 Allergy status to sulfonamides; Z79.899 Other long term (current) drug therapy
CPT/HCPCS: 36415; 71046; 80053; 82150; 83690; 84484; 85025; 93005; 96374; 99284; A9270; J2405; 99283

== ENCOUNTER 2019-07-12 15:53 | Emergency (ER) | payer MEDICARE ==
[2019-07-12] MEDS ORDERED: Sodium Chloride 0.9% 1,000 ML IV SCH (16:45)
[2019-07-12] MEDS ORDERED: Pantoprazole 80 MG in Sodium Chloride 0.9% 20 ML IVPUSH ONE (16:57)
[2019-07-12 17:04] LABS: CARBON DIOXIDE,CO2 23.3 mmol/L (21.0-32.0); POTASSIUM,K 3.9 mmol/L (3.5-5.1)
[2019-07-12] MEDS ORDERED: Iopamidol 755 MG/ML 500 ML Multipack Bottle IVPUSH STA (18:00)
--- NOTE | 2019-07-12 18:17 | EDM.PDOC ---
ED [facility] GENERAL MEDICAL PROBLEM - General Chief Complaint: General Stated Complaint: SPOKE TO NURSE Time Seen by Provider: 07/12/19 16:35 Source of Information: Reports: Patient History Limitations: Reports: No Limitations - History of Present Illness INITIAL COMMENTS - FREE TEXT/NARRATIVE: Patient is a 78-year-old male with a past medical history of bladder cancer, COPD presenting from infusion clinic with a complaint of anemia. Patient's only complaint at this time is bloody stool as well as shortness of breath. Patient states unit for similar bloody stool on Wednesday. Patient states that his stool was bright red and he was having loose stool and then intermittently it was a dark black in color. Patient denies any fever, abdominal pain, nausea , vomiting. Patient has never had a upper endoscopy or colonoscopy in the past. Patient states he otherwise feels well except he becomes extremely shortness of breath of breath with minimal exertion. Pmhx: None Pshx: None Family Hx: noncontributory Smoking history? no Etoh use? none Drug use? none In addition to that documented in the HPI above, the additional ROS was obtained : Constitutional: Denies fevers or chills Eyes: Denies vision changes ENMT: Denies sore throat CV: Denies chest pain Resp: Denies SOB GI: Denies vomiting or diarrhea : Denies painful urination MSK: Denies recent trauma Skin: Denies new rashes Neuro: Denies new numbness or tingling or weakness Endocrine: Denies unexpected weight loss Heme: Denies bleeding disorders I have reviewed the triage vital signs Const: Well nourished, well developed, appears stated age Eyes: PERRL, no conjunctival injection HENT: NCAT, Neck supple without meningismus CV: RRR, Warm, well-perfused extremities RESP: CTAB, Unlabored respiratory effort GI: soft, non-tender, non-distended, no masses Rectal (JAELYN Diana present): Gross blood noted on rectal exam. No evidence of hemorrhoids. MSK: No gross deformities appreciated Skin: Warm, dry. No rashes Neuro: Alert, aoc operations intelligence officer II-XII grossly intact. Sensation and motor function of extremities grossly intact. Psych: Appropriate mood and affect Assessment and plan: Patient is a 78-year-old male presenting with signs and symptoms concerning for GI bleed. Patient is anemic after receiving 1 unit of PRBCs this morning. Patient is symptomatic. I am concerned that he will require endoscopy with intervention and therefore will be transferring him to [facility]. I discussed with the ER doc Dr. Yo well as GI attending Dr. Tran. 1 unit PRBCs was given in the emergency department. 1 unit was sent with EMS. Patient was also given Protonix. In addition, patient flagged positive for sepsis given his white blood cell count and elevated lactic acid along with the tachycardia. However, patient was afebrile and not demonstrating any symptoms of infection. Elevated lactate is likely secondary to hypoperfusion due to severe anemia. Patient will be transferred via ground ambulance as he is hemodynamically stable at this time. - Related Data Allergies Allergy/AdvReac Type Severity Reaction Status Date / Time ciprofloxacin Allergy and Verified 07/12/19 15:59 elevated blood sugar Sulfa (Sulfonamide Allergy Cannot Verified 07/12/19 15:59 Antibiotics) Remember Home Meds: Home Meds Albuterol [Ventolin HFA] 2 puff INH Q4H PRN 11/22/18 [History] Salmeterol Xinafoate [Serevent Diskus] 1 puff INH BID 11/22/18 [History] allopurinoL [Zyloprim] 100 mg PO DAILY PRN 11/22/18 [History] Ondansetron [Zofran] 8 mg PO ASDIRECTED 07/12/19 [History] Prochlorperazine Maleate [Compazine] 10 mg PO ASDIRECTED PRN 07/12/19 [History] Tiotropium [Spiriva HandiHaler] 2 puff INH DAILY 07/12/19 [History] Past Medical History HEENT History: Reports: Other (See Below) Other HEENT History: wears glasses, has upper and lower dentures Cardiovascular History: Reports: None Respiratory History: Reports: COPD, SOB Gastrointestinal History: Reports: None Genitourinary History: Reports: Other (See Below) Other Genitourinary History: 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 Last Wednesday, velasco cath removed. Just returned from [facility] today at 4 pm Musculoskeletal History: Reports: Gout Neurological History: Reports: None Psychiatric History: Reports: None Endocrine/Metabolic History: Reports: None Other Endocrine/Metabolic History: Not on Diabetic medications. Checks blood sugar about 3 or 4 times a week. Hematologic History: Reports: None Immunologic History: Reports: None Oncologic (Cancer) History: Reports: Bladder Other Oncologic History: Will get a gene cath and start chemo in [place]. Not sure when. Dermatologic History: Reports: None - Infectious Disease History Infectious Disease History: Reports: Mumps - Past Surgical History Head Surgeries/Procedures: Reports: None HEENT Surgical History: Reports: Tonsillectomy Cardiovascular Surgical History: Reports: None Respiratory Surgical History: Reports: None GI Surgical History: Reports: None Male Surgical History: Reports: Other (See Below) Other Male Surgeries/Procedures: Prostate surgery Endocrine Surgical History: Reports: None Neurological Surgical History: Reports: None Musculoskeletal Surgical History: Reports: None Oncologic Surgical History: Reports: Other (See Below) Dermatological Surgical History: Reports: None Social & Family History - Family History Family Medical History: Noncontributory - Tobacco Use Smoking Status *Q: Former Smoker Used Tobacco, but Quit: Yes Month/Year Tobacco Last Used: years - Caffeine Use Caffeine Use: Reports: Coffee - Recreational Drug Use Recreational Drug Use: No ED ROS GENERAL - Review of Systems Review Of Systems: See Below ED EXAM, GENERAL - Physical Exam Exam: See Below Course - Vital Signs Last Recorded V/S: Last Vital Signs Temp 36.9 C 07/12/19 17:31 Pulse 105 H 07/12/19 17:31 Resp 17 07/12/19 17:31 BP 111/51 L 07/12/19 17:31 Pulse Ox 97 07/12/19 17:31 - Orders/Labs/Meds Orders: Active Orders 24 hr Category Date Time Status Abdomen Pelvis w Cont [CT] Stat Exams 07/12/19 17:21 Taken CULTURE BLOOD [BC] Stat Lab 07/12/19 16:16 Received CULTURE BLOOD [BC] Stat Lab 07/12/19 16:28 Received LACTATE WITH REFLEX [BG] Stat Lab 07/12/19 16:56 Ordered RED BLOOD CELLS LP [BBK] Stat Lab 07/12/19 08:42 Received URINALYSIS W/MICROSCOPIC [UA W/MICROSCOPIC] [URIN] Stat Lab 07/12/19 17:09 Ordered Sodium Chloride 0.9% [Normal Saline] 1,000 ml Med 07/12/19 16:45 Active IV STAT Blood Culture x2 Reflex Set [OM.PC] Stat Oth 07/12/19 16:00 Ordered Transfuse Red Blood Cells [COMM] Stat Oth 07/12/19 16:53 Ordered Medication Orders Sodium Chloride (Normal Saline) 1,000 mls @ 999 mls/hr IV STAT TRANG Last Admin: 07/12/19 16:43 Dose: 999 mls/hr Labs: Laboratory Tests 07/12/19 07/12/19 07/12/19 Range/Units 16:16 16:16 16:16 WBC 2.10 L (4.0-11.0) K/uL RBC 2.01 L (4.50-5.90) M/uL Hgb 6.4 L (13.0-17.0) g/dL Hct 18.7 L (38.0-50.0) % MCV 93.0 (80.0-98.0) fL MCH 31.8 (27.0-32.0) pg MCHC 34.2 (31.0-37.0) g/dL RDW Std Deviation 53.3 (28.0-62.0) fl RDW Coeff of Mat 16 H (11.0-15.0) % Plt Count 54 L (150-400) K/uL MPV 9.80 (7.40-12.00) fL Neut % (Auto) 40.0 L (48.0-80.0) % Lymph % (Auto) 55.2 H (16.0-40.0) % Granite % (Auto) 4.8 (0.0-15.0) % Eos % (Auto) 0.0 (0.0-7.0) % Baso % (Auto) 0.0 (0.0-1.5) % Neut # (Auto) 0.8 L (1.4-5.7) K/uL Lymph # (Auto) 1.2 (0.6-2.4) K/uL Granite # (Auto) 0.1 (0.0-0.8) K/uL Eos # (Auto) 0.0 (0.0-0.7) K/uL Baso # (Auto) 0.0 (0.0-0.1) K/uL Nucleated RBC % 0.0 /100WBC Nucleated RBCs # 0 K/uL VBG pH (7.31-7.41) VBG pCO2 (35-45) mmHG VBG pO2 (30-40) mmHG VBG HCO3 (22-30) mEq/L VBG Total CO2 (41-51) mmol/L VBG Base Excess (-3.0-3.0) Lactate 5.3 H* (0.20-2.00) mmol/L Sodium 140 (136-148) mmol/L Potassium 3.9 (3.5-5.1) mmol/L Chloride 105 (98-107) mmol/L Carbon Dioxide 23.3 (21.0-32.0) mmol/L BUN 23 H (7.0-18.0) mg/dL Creatinine 1.2 (0.8-1.3) mg/dL Est Cr Clr Drug Dosing 49.92 mL/min Estimated GFR (MDRD) 58.4 ml/min Glucose 251 H (74-106) mg/dL Calcium 8.2 L (8.5-10.1) mg/dL Total Bilirubin 0.6 (0.2-1.0) mg/dL AST 12 L (15-37) IU/L ALT 24 (14-63) IU/L Alkaline Phosphatase 66 (46-116) U/L Total Protein 5.4 L (6.4-8.2) g/dL Albumin 2.9 L (3.4-5.0) g/dL Globulin 2.5 L (2.6-4.0) g/dL Albumin/Globulin Ratio 1.2 (0.9-1.6) 07/12/19 Range/Units 16:16 WBC (4.0-11.0) K/uL RBC (4.50-5.90) M/uL Hgb (13.0-17.0) g/dL Hct (38.0-50.0) % MCV (80.0-98.0) fL MCH (27.0-32.0) pg MCHC (31.0-37.0) g/dL RDW Std Deviation (28.0-62.0) fl RDW Coeff of Mat (11.0-15.0) % Plt Count (150-400) K/uL MPV (7.40-12.00) fL Neut % (Auto) (48.0-80.0) % Lymph % (Auto) (16.0-40.0) % Granite % (Auto) (0.0-15.0) % Eos % (Auto) (0.0-7.0) % Baso % (Auto) (0.0-1.5) % Neut # (Auto) (1.4-5.7) K/uL Lymph # (Auto) (0.6-2.4) K/uL Granite # (Auto) (0.0-0.8) K/uL Eos # (Auto) (0.0-0.7) K/uL Baso # (Auto) (0.0-0.1) K/uL Nucleated RBC % /100WBC Nucleated RBCs # K/uL VBG pH 7.46 H (7.31-7.41) VBG pCO2 34 L (35-45) mmHG VBG pO2 34 (30-40) mmHG VBG HCO3 24 (22-30) mEq/L VBG Total CO2 23 L (41-51) mmol/L VBG Base Excess 0.1 (-3.0-3.0) Lactate (0.20-2.00) mmol/L Sodium (136-148) mmol/L Potassium (3.5-5.1) mmol/L Chloride (98-107) mmol/L Carbon Dioxide (21.0-32.0) mmol/L BUN (7.0-18.0) mg/dL Creatinine (0.8-1.3) mg/dL Est Cr Clr Drug Dosing mL/min Estimated GFR (MDRD) ml/min Glucose (74-106) mg/dL Calcium (8.5-10.1) mg/dL Total Bilirubin (0.2-1.0) mg/dL AST (15-37) IU/L ALT (14-63) IU/L Alkaline Phosphatase (46-116) U/L Total Protein (6.4-8.2) g/dL Albumin (3.4-5.0) g/dL Globulin (2.6-4.0) g/dL Albumin/Globulin Ratio (0.9-1.6) Meds: Medications Generic Name Dose Route Start Last Admin Trade Name Freq PRN Reason Stop Dose Admin Sodium Chloride 1,000 mls @ 999 mls/hr 07/12/19 16:45 07/12/19 16:43 Normal Saline IV 999 mls/hr STAT TRANG Administration Discontinued Medications Generic Name Dose Route Start Last Admin Trade Name Freq PRN Reason Stop Dose Admin Pantoprazole Sodium 80 mg/ 20 mls @ 420 mls/hr 07/12/19 16:57 07/12/19 17:20 Sodium Chloride IVPUSH 07/12/19 16:59 420 mls/hr ONETIME ONE Administration Iopamidol 100 ml 07/12/19 18:00 07/12/19 18:00 Isovue Multipack-370 (76%) IVPUSH 07/12/19 18:01 100 ml ONETIME STA Administration Departure - Departure Time of Disposition: 18:17 Disposition: Home, Self-Care 01 Clinical Impression: GI bleed - Discharge Information Instructions: Gastrointestinal Bleeding Referrals: Shakeel Cabral MD [Primary Care Provider] - Sepsis Event Note - Evaluation Sepsis Screening Result: No Definite Risk - Focused Exam Vital Signs: Vital Signs Temp Pulse Resp BP Pulse Ox 07/12/19 17:31 36.9 C 105 H 17 111/51 L 97 07/12/19 17:14 114/60 07/12/19 16:46 36.9 C 104 H 18 91/47 L 92 L 07/12/19 15:57 36.8 C 116 H 20 126/56 L 94 L Date Exam was Performed: 07/12/19 Time Exam was Performed: 18:08 - My Orders Last 24 Hours: My Active Orders 07/12/19 08:42 RED BLOOD CELLS LP [BBK] Stat 07/12/19 16:00 Blood Culture x2 Reflex Set [OM.PC] Stat 07/12/19 16:16 CULTURE BLOOD [BC] Stat 07/12/19 16:28 CULTURE BLOOD [BC] Stat 07/12/19 16:45 Sodium Chloride 0.9% [Normal Saline] 1,000 ml IV STAT 07/12/19 16:53 Transfuse Red Blood Cells [COMM] Stat 07/12/19 16:56 LACTATE WITH REFLEX [BG] Stat 07/12/19 17:09 URINALYSIS W/MICROSCOPIC [UA W/MICROSCOPIC] [URIN] Stat 07/12/19 17:21 Abdomen Pelvis w Cont [CT] Stat - Assessment/Plan Last 24 Hours: My Active Orders 07/12/19 08:42 RED BLOOD CELLS LP [BBK] Stat 07/12/19 16:00 Blood Culture x2 Reflex Set [OM.PC] Stat 07/12/19 16:16 CULTURE BLOOD [BC] Stat 07/12/19 16:28 CULTURE BLOOD [BC] Stat 07/12/19 16:45 Sodium Chloride 0.9% [Normal Saline] 1,000 ml IV STAT 07/12/19 16:53 Transfuse Red Blood Cells [COMM] Stat 07/12/19 16:56 LACTATE WITH REFLEX [BG] Stat 07/12/19 17:09 URINALYSIS W/MICROSCOPIC [UA W/MICROSCOPIC] [URIN] Stat 07/12/19 17:21 Abdomen Pelvis w Cont [CT] Stat
--- NOTE | 2019-07-12 18:23 | CT ---
CT abdomen and pelvis Technique: Multiple axial sections were obtained from above the dome of the diaphragm inferiorly through the pubic symphysis. Intravenous contrast was utilized. No oral contrast has been given. Comparison: No prior abdominal imaging is available. Findings: Visualized lung bases shows emphysematous change with nothing acute. Liver contains no focal parenchymal abnormality. Spleen appears within normal limits. Adrenal glands show no nodule. Kidneys show symmetric contrast enhancement without hydronephrosis with a small cyst noted within the lower left kidney measuring 1.0 cm. Gallbladder contains no calcified gallstones. There appears to be a duodenal diverticulum. Pancreas shows no discrete abnormality. Mid aorta slightly below the renal arteries is mildly aneurysmal at 3.0 cm in AP dimension. Distal aorta prior to the bifurcation into the iliac vessels is mildly aneurysmal at 2.7 cm. 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 Atherosclerotic change is noted within the aortoiliac vessels. No retroperitoneal adenopathy or mesenteric abnormalities are seen. No pelvic mass or adenopathy is identified. Appendix is seen which is normal in size. Bone window settings were reviewed which shows scattered degenerative change within the spine. Impression: 1. Mild aneurysmal dilatation of the abdominal aorta as noted above. 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 2. Other findings as noted above believed to be incidental. Nothing acute is appreciated on CT study of the abdomen and pelvis. Diagnostic code #3 This report was dictated in MDT
== END 2019-07-12 19:10 | disposition home or self-care (01) ==
LOC: MW.ED 15:53
DX: K92.2 Gastrointestinal hemorrhage, unspecified (principal); D64.9 Anemia, unspecified; J44.9 Chronic obstructive pulmonary disease, unspecified; Z79.899 Other long term (current) drug therapy; Z88.1 Allergy status to other antibiotic agents; Z88.2 Allergy status to sulfonamides; Z85.59 Personal history of malignant neoplasm of other urinary tract organ
CPT/HCPCS: 36415; 36430; 74177; 74177-26; 80053; 82803; 83605; 85025; 86850; 86900; 86901; 86920; 86921; 86922; 87040; 96361; 96374; 99282; 99285-25; C9113; J7030; P9016; Q9967

== ENCOUNTER 2021-02-24 07:36 | Inpatient (IN) | payer MEDICARE ==
[2021-02-24] MEDS ORDERED: Sodium Chloride 0.9% 2.5 ML Syringe FLUSH PRN (07:57)
[2021-02-24] MEDS ORDERED: Sodium Chloride 0.9% 10 ML Syringe FLUSH PRN (07:57)
[2021-02-24] MEDS ORDERED: Albuterol/Ipratropium 3.0-0.5 MG/3 ML Neb Soln NEB ONE (07:58)
--- NOTE | 2021-02-24 08:02 | EDM.PDOC ---
ED HPI GENERAL MEDICAL PROBLEM - General Chief Complaint: General Stated Complaint: BLOOD IN STOOL, LOW OXYGEN Time Seen by Provider: 02/24/21 07:55 - History of Present Illness INITIAL COMMENTS - FREE TEXT/NARRATIVE: 80-year-old male presents complaining of shortness of breath for couple days in duration. Patient over this last week has had some black stools. He was scheduled for a colonoscopy later this week. He denies any large diarrhea. Patient normally has a baseline oxygen saturation of 90% and noted on his home oxygen that he dipped down significantly below his baseline. Patient was 79% upon arriving in the emergency department bed after walking. Patient is vaccinated against Covid. He denies any fever cough or productive sputum. Patient denies leg swelling. No recent travel or injury or cancer or surgery. Even though the patient denies any current cancer the patient did have bladder cancer he states he had 2 doses of chemo and then stopped but it never came back according to the patient. Patient complains of some diffuse abdominal tightness abdomen Pain Score (Numeric/FACES): 3 - Related Data Allergies Allergy/AdvReac Type Severity Reaction Status Date / Time ciprofloxacin Allergy and Verified 02/24/21 07:59 elevated blood sugar Sulfa (Sulfonamide Allergy Cannot Verified 02/24/21 07:59 Antibiotics) Remember Home Meds: Home Meds Albuterol [Ventolin HFA] 2 puff INH Q4H PRN 11/22/18 [History] Salmeterol Xinafoate [Serevent Diskus] 1 puff INH BID 11/22/18 [History] allopurinoL [Zyloprim] 100 mg PO DAILY PRN 11/22/18 [History] Ondansetron [Zofran] 8 mg PO ASDIRECTED 07/12/19 [History] Prochlorperazine Maleate [Compazine] 10 mg PO ASDIRECTED PRN 07/12/19 [History] Tiotropium [Spiriva HandiHaler] 2 puff INH DAILY 07/12/19 [History] Past Medical History HEENT History: Reports: Other (See Below) Other HEENT History: wears glasses, has upper and lower dentures Cardiovascular History: Reports: None Respiratory History: Reports: COPD, SOB Gastrointestinal History: Reports: None Genitourinary History: Reports: Other (See Below) Other Genitourinary History: 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 Last Wednesday, velasco cath removed. Just returned from [facility] today at 4 pm Musculoskeletal History: Reports: Gout Neurological History: Reports: None Psychiatric History: Reports: None Endocrine/Metabolic History: Reports: None Other Endocrine/Metabolic History: Not on Diabetic medications. Checks blood sugar about 3 or 4 times a week. Hematologic History: Reports: None Immunologic History: Reports: None Oncologic (Cancer) History: Reports: Bladder Other Oncologic History: Will get a gene cath and start chemo in [place]. Not sure when. Dermatologic History: Reports: None - Infectious Disease History Infectious Disease History: Reports: Mumps - Past Surgical History Head Surgeries/Procedures: Reports: None HEENT Surgical History: Reports: Tonsillectomy Male Surgical History: Reports: Other (See Below) Other Male Surgeries/Procedures: Prostate surgery Social & Family History - Family History Family Medical History: No Pertinent Family History - Caffeine Use Caffeine Use: Reports: Coffee ED ROS GENERAL - Review of Systems Review Of Systems: Comprehensive ROS is negative, except as noted in HPI. ED EXAM, GENERAL - Physical Exam Exam: See Below Free Text/Narrative:: CONSTITUTIONAL: well appearing in no acute distress SKIN: Warm, dry, and intact without rash HENT: Normocephalic, atraumatic, PULMONARY: clear to ausculation bilaterally. No rales, rhonchi, wheezing CARDIOVASCULAR: regular rate, No murmur, rubs, or gallops GASTROINTESTINAL: soft, nondistended, nontender. No pulsatile abdominal mass NEUROLOGIC: normal speech, motor and sensory function grossly intact MUSCULOSKELETAL: no gross deformities, atraumatic PSYCHIATRIC: normal mood and affect #1 Interpretation EKG Interpretation Comments: EKG: NSR, nonspecific ST/T changes, Rate -89 Course - Vital Signs Text/Narrative:: Differential diagnosis: COPD, pneumonia, Covid, PE, gastric ulcer, gastritis, diverticulosis, other Patient presents with shortness of breath. Patient hypoxic to 70% ambulatory and with significant tachypnea. Patient given breathing treatments for COPD as well as antibiotics for inpatient COPD treatment. Patient is found to have dark red strongly guaiac positive overt bloody stools. Patient has had some bloody stools and was scheduled for outpatient endoscopy. This can be done during inpatient hospitalization at this time. Patient's hemoglobin is stable at 13.4 and he is also hemodynamically stable. I have not given steroids for COPD because the patient has an active GI bleed and I do not want to make things worse. Patient if he is sitting down comfortably is not particularly tachypneic or in respiratory distress. Patient can be started with initial treatment for COPD with breathing treatments. Patient will otherwise be admitted and I have spoken to surgery who will follow-up in regard to the GI bleed/endoscopy. Last Recorded V/S: Last Vital Signs Temp 37.3 C 02/24/21 07:42 Pulse 87 02/24/21 09:20 Resp 20 02/24/21 09:20 BP 118/63 02/24/21 09:20 Pulse Ox 99 02/24/21 09:20 - Orders/Labs/Meds Orders: Active Orders 24 hr Category Date Time Status Admission Status [Patient Status] [ADT] Stat ADT 02/24/21 13:35 Active Cardiac Monitoring [RC] . DIRECTED Care 02/24/21 07:57 Active Cardiac Monitoring [RC] . DIRECTED Care 02/24/21 13:35 Active RT Aerosol Therapy [RC] ASDIRECTED Care 02/24/21 07:58 Active Abdomen Pelvis wo Cont [CT] Stat Exams 02/24/21 13:19 Taken CULTURE BLOOD [BC] Stat Lab 02/24/21 07:48 Received CULTURE BLOOD [BC] Stat Lab 02/24/21 08:30 Received STOOL CULTURE/SHIGA TOXIN [MREF] Stat Lab 02/24/21 13:19 Ordered Sodium Chloride 0.9% [Saline Flush] Med 02/24/21 07:57 Active 10 ml FLUSH ASDIRECTED PRN Sodium Chloride 0.9% [Saline Flush] Med 02/24/21 07:57 Active 2.5 ml FLUSH ASDIRECTED PRN Blood Culture x2 Reflex Set [OM.PC] Stat Oth 02/24/21 07:57 Ordered Saline Lock Insert [OM.PC] Stat Oth 02/24/21 07:57 Ordered Medication Orders Sodium Chloride (Sodium Chloride 0.9% 10 Ml Syringe) 10 ml FLUSH ASDIRECTED PRN PRN Reason: Keep Vein Open Last Admin: 02/24/21 08:04 Dose: 10 ml Documented by: [place] Sodium Chloride (Sodium Chloride 0.9% 2.5 Ml Syringe) 2.5 ml FLUSH ASDIRECTED PRN PRN Reason: Keep Vein Open Last Admin: 02/24/21 08:04 Dose: 2.5 ml Documented by: [place] Labs: Laboratory Tests 02/24/21 02/24/21 02/24/21 Range/Units 07:45 07:45 07:45 WBC 4.31 (4.0-11.0) K/uL RBC 3.97 L (4.50-5.90) M/uL Hgb 13.4 (13.0-17.0) g/dL Hct 39.5 (38.0-50.0) % MCV 99.5 H (80.0-98.0) fL MCH 33.8 H (27.0-32.0) pg MCHC 33.9 (31.0-37.0) g/dL RDW Std Deviation 54.0 (28.0-62.0) fl RDW Coeff of Mat 15 (11.0-15.0) % Plt Count 142 L (150-400) K/uL MPV 10.70 (7.40-12.00) fL Add Manual Diff YES Neutrophils % (Manual) 39 L (48.0-80.0) % Band Neutrophils % 8 % Lymphocytes % (Manual) 46 H (16.0-40.0) % Monocytes % (Manual) 6 (0.0-15.0) % Eosinophils % (Manual) 1 (0.0-7.0) % Nucleated RBC % 0.0 /100WBC Absolute Seg Neuts 1.7 (1.4-5.7) Band Neutrophils # 0.3 Lymphocytes # (Manual) 2.0 (0.6-2.4) Monocytes # (Manual) 0.3 (0.0-0.8) Eosinophils # (Manual) 0.0 (0.0-0.7) Nucleated RBCs # 0 K/uL Reactive Lymphocytes FEW INR 1.06 D-Dimer, Quantitative 0.60 H (0.0-0.50) mg/L FEU Sodium 137 (136-148) mmol/L Potassium 4.1 (3.5-5.1) mmol/L Chloride 99 (98-107) mmol/L Carbon Dioxide 30.6 (21.0-32.0) mmol/L BUN 12 (7.0-18.0) mg/dL Creatinine 1.0 (0.8-1.3) mg/dL Est Cr Clr Drug Dosing 57.93 mL/min Estimated GFR (MDRD) > 60.0 ml/min Glucose 146 H (74-106) mg/dL Lactic Acid (0.4-2.0) mmol/L Calcium 9.2 (8.5-10.1) mg/dL Total Bilirubin 1.0 (0.2-1.0) mg/dL AST 19 (15-37) IU/L ALT 25 (14-63) IU/L Alkaline Phosphatase 84 (46-116) U/L Troponin I < 0.050 (0.000-0.056) ng/mL B-Natriuretic Peptide (<100) PG/ML Total Protein 8.4 H (6.4-8.2) g/dL Albumin 4.3 (3.4-5.0) g/dL Globulin 4.1 H (2.6-4.0) g/dL Albumin/Globulin Ratio 1.1 (0.9-1.6) Lipase 91 (73-393) U/L Urine Color Urine Appearance Urine pH (5.0-8.0) Ur Specific Thorndike (1.001-1.035) Urine Protein (NEGATIVE) mg/dL Urine Glucose (UA) (NEGATIVE) mg/dL Urine Ketones (NEGATIVE) mg/dL Urine Occult Blood (NEGATIVE) Urine Nitrite (NEGATIVE) Urine Bilirubin (NEGATIVE) Urine Urobilinogen (<2.0) EU/dL Ur Leukocyte Esterase (NEGATIVE) Urine RBC (0-2/HPF) Urine WBC (0-5/HPF) Ur Epithelial Cells (NONE-FEW) Urine Bacteria (NEGATIVE) Urine Mucus (NONE-MOD) SARS-CoV-2 RNA (MCKINLEY) (NEGATIVE) Blood Type Antibody Screen 02/24/21 02/24/21 02/24/21 Range/Units 07:45 07:45 08:00 WBC (4.0-11.0) K/uL RBC (4.50-5.90) M/uL Hgb (13.0-17.0) g/dL Hct (38.0-50.0) % MCV (80.0-98.0) fL MCH (27.0-32.0) pg MCHC (31.0-37.0) g/dL RDW Std Deviation (28.0-62.0) fl RDW Coeff of Mat (11.0-15.0) % Plt Count (150-400) K/uL MPV (7.40-12.00) fL Add Manual Diff Neutrophils % (Manual) (48.0-80.0) % Band Neutrophils % % Lymphocytes % (Manual) (16.0-40.0) % Monocytes % (Manual) (0.0-15.0) % Eosinophils % (Manual) (0.0-7.0) % Nucleated RBC % /100WBC Absolute Seg Neuts (1.4-5.7) Band Neutrophils # Lymphocytes # (Manual) (0.6-2.4) Monocytes # (Manual) (0.0-0.8) Eosinophils # (Manual) (0.0-0.7) Nucleated RBCs # K/uL Reactive Lymphocytes INR D-Dimer, Quantitative (0.0-0.50) mg/L FEU Sodium (136-148) mmol/L Potassium (3.5-5.1) mmol/L Chloride (98-107) mmol/L Carbon Dioxide (21.0-32.0) mmol/L BUN (7.0-18.0) mg/dL Creatinine (0.8-1.3) mg/dL Est Cr Clr Drug Dosing mL/min Estimated GFR (MDRD) ml/min Glucose (74-106) mg/dL Lactic Acid 1.7 (0.4-2.0) mmol/L Calcium (8.5-10.1) mg/dL Total Bilirubin (0.2-1.0) mg/dL AST (15-37) IU/L ALT (14-63) IU/L Alkaline Phosphatase (46-116) U/L Troponin I (0.000-0.056) ng/mL B-Natriuretic Peptide 20 (<100) PG/ML Total Protein (6.4-8.2) g/dL Albumin (3.4-5.0) g/dL Globulin (2.6-4.0) g/dL Albumin/Globulin Ratio (0.9-1.6) Lipase (73-393) U/L Urine Color Urine Appearance Urine pH (5.0-8.0) Ur Specific Thorndike (1.001-1.035) Urine Protein (NEGATIVE) mg/dL Urine Glucose (UA) (NEGATIVE) mg/dL Urine Ketones (NEGATIVE) mg/dL Urine Occult Blood (NEGATIVE) Urine Nitrite (NEGATIVE) Urine Bilirubin (NEGATIVE) Urine Urobilinogen (<2.0) EU/dL Ur Leukocyte Esterase (NEGATIVE) Urine RBC (0-2/HPF) Urine WBC (0-5/HPF) Ur Epithelial Cells (NONE-FEW) Urine Bacteria (NEGATIVE) Urine Mucus (NONE-MOD) SARS-CoV-2 RNA (MCKINLEY) NEGATIVE (NEGATIVE) Blood Type Antibody Screen 02/24/21 02/24/21 Range/Units 08:30 10:00 WBC (4.0-11.0) K/uL RBC (4.50-5.90) M/uL Hgb (13.0-17.0) g/dL Hct (38.0-50.0) % MCV (80.0-98.0) fL MCH (27.0-32.0) pg MCHC (31.0-37.0) g/dL RDW Std Deviation (28.0-62.0) fl RDW Coeff of Mat (11.0-15.0) % Plt Count (150-400) K/uL MPV (7.40-12.00) fL Add Manual Diff Neutrophils % (Manual) (48.0-80.0) % Band Neutrophils % % Lymphocytes % (Manual) (16.0-40.0) % Monocytes % (Manual) (0.0-15.0) % Eosinophils % (Manual) (0.0-7.0) % Nucleated RBC % /100WBC Absolute Seg Neuts (1.4-5.7) Band Neutrophils # Lymphocytes # (Manual) (0.6-2.4) Monocytes # (Manual) (0.0-0.8) Eosinophils # (Manual) (0.0-0.7) Nucleated RBCs # K/uL Reactive Lymphocytes INR D-Dimer, Quantitative (0.0-0.50) mg/L FEU Sodium (136-148) mmol/L Potassium (3.5-5.1) mmol/L Chloride (98-107) mmol/L Carbon Dioxide (21.0-32.0) mmol/L BUN (7.0-18.0) mg/dL Creatinine (0.8-1.3) mg/dL Est Cr Clr Drug Dosing mL/min Estimated GFR (MDRD) ml/min Glucose (74-106) mg/dL Lactic Acid (0.4-2.0) mmol/L Calcium (8.5-10.1) mg/dL Total Bilirubin (0.2-1.0) mg/dL AST (15-37) IU/L ALT (14-63) IU/L Alkaline Phosphatase (46-116) U/L Troponin I (0.000-0.056) ng/mL B-Natriuretic Peptide (<100) PG/ML Total Protein (6.4-8.2) g/dL Albumin (3.4-5.0) g/dL Globulin (2.6-4.0) g/dL Albumin/Globulin Ratio (0.9-1.6) Lipase (73-393) U/L Urine Color YELLOW Urine Appearance CLEAR Urine pH 7.0 (5.0-8.0) Ur Specific Thorndike 1.015 (1.001-1.035) Urine Protein NEGATIVE (NEGATIVE) mg/dL Urine Glucose (UA) NEGATIVE (NEGATIVE) mg/dL Urine Ketones NEGATIVE (NEGATIVE) mg/dL Urine Occult Blood TRACE-INTACT H (NEGATIVE) Urine Nitrite NEGATIVE (NEGATIVE) Urine Bilirubin NEGATIVE (NEGATIVE) Urine Urobilinogen 0.2 (<2.0) EU/dL Ur Leukocyte Esterase NEGATIVE (NEGATIVE) Urine RBC NONE SEEN (0-2/HPF) Urine WBC 0-1 (0-5/HPF) Ur Epithelial Cells RARE (NONE-FEW) Urine Bacteria RARE (NEGATIVE) Urine Mucus LIGHT (NONE-MOD) SARS-CoV-2 RNA ([place]LEY) (NEGATIVE) Blood Type O NEGATIVE Antibody Screen NEGATIVE Meds: Medications Generic Name Dose Route Start Last Admin Trade Name Freq PRN Reason Stop Dose Admin Sodium Chloride 10 ml 02/24/21 07:57 02/24/21 08:04 Sodium Chloride 0.9% 10 Ml Syringe FLUSH 10 ml ASDIRECTED PRN Administration Keep Vein Open Sodium Chloride 2.5 ml 02/24/21 07:57 02/24/21 08:04 Sodium Chloride 0.9% 2.5 Ml Syringe FLUSH 2.5 ml ASDIRECTED PRN Administration Keep Vein Open Discontinued Medications Generic Name Dose Route Start Last Admin Trade Name Freq PRN Reason Stop Dose Admin Albuterol/Ipratropium 3 ml 02/24/21 07:58 02/24/21 08:05 Albuterol/Ipratropium 3.0-0.5 Mg/3 Ml Neb Soln NEB 02/24/21 07:59 3 ml ONETIME ONE Administration Pantoprazole Sodium 80 mg/ 10 mls @ 300 mls/hr 02/24/21 13:04 02/24/21 13:16 Sodium Chloride IV 02/24/21 13:05 300 mls/hr NOW ONE Administration Ceftriaxone Sodium/Dextrose 1 50 mls @ 100 mls/hr 02/24/21 13:04 02/24/21 13:16 gm/ Premix IV 02/24/21 13:33 100 mls/hr ONETIME ONE Administration Departure - Departure Time of Disposition: 14:00 Disposition: Admitted As Inpatient 65 Condition: Good Clinical Impression: COPD exacerbation, GI bleed - Discharge Information Referrals: Shakeel Cabral MD [Primary Care Provider] - Forms: ED Department Discharge Sepsis Event Note (ED) - Evaluation Sepsis Screening Result: No Definite Risk - Focused Exam Vital Signs: Vital Signs Temp Temp Pulse Resp BP Pulse Ox 02/24/21 09:20 87 20 118/63 99 02/24/21 07:42 37.0 C 37.3 C 146 H 18 156/81 H 79 L - My Orders Last 24 Hours: My Active Orders 02/24/21 07:48 CULTURE BLOOD [BC] Stat 02/24/21 07:57 Cardiac Monitoring [RC] . DIRECTED Sodium Chloride 0.9% [Saline Flush] 10 ml FLUSH ASDIRECTED PRN Sodium Chloride 0.9% [Saline Flush] 2.5 ml FLUSH ASDIRECTED PRN Blood Culture x2 Reflex Set [OM.PC] Stat Saline Lock Insert [OM.PC] Stat 02/24/21 07:58 RT Aerosol Therapy [RC] ASDIRECTED 02/24/21 08:30 CULTURE BLOOD [BC] Stat 02/24/21 13:19 Abdomen Pelvis wo Cont [CT] Stat STOOL CULTURE/SHIGA TOXIN [MREF] Stat 02/24/21 13:35 Admission Status [Patient Status] [ADT] Stat Cardiac Monitoring [RC] . DIRECTED - Assessment/Plan Last 24 Hours: My Active Orders 02/24/21 07:48 CULTURE BLOOD [BC] Stat 02/24/21 07:57 Cardiac Monitoring [RC] . DIRECTED Sodium Chloride 0.9% [Saline Flush] 10 ml FLUSH ASDIRECTED PRN Sodium Chloride 0.9% [Saline Flush] 2.5 ml FLUSH ASDIRECTED PRN Blood Culture x2 Reflex Set [OM.PC] Stat Saline Lock Insert [OM.PC] Stat 02/24/21 07:58 RT Aerosol Therapy [RC] ASDIRECTED 02/24/21 08:30 CULTURE BLOOD [BC] Stat 02/24/21 13:19 Abdomen Pelvis wo Cont [CT] Stat STOOL CULTURE/SHIGA TOXIN [MREF] Stat 02/24/21 13:35 Admission Status [Patient Status] [ADT] Stat Cardiac Monitoring [RC] . DIRECTED
--- NOTE | 2021-02-24 08:09 | CR ---
Indication: Chest pain Comparison: Two-view chest June 11, 2019 Technique: Single AP view chest Findings: There is hyperinflation and chronic interstitial change with basilar pleural thickening. There is moderate to severe centrilobular emphysematous changes predominantly of the upper lobes with basilar atelectasis versus scar. There is no dense consolidation, effusion or pneumothorax. The cardiac silhouette is stable. There is interval placement of right-sided Port-A-Cath in satisfactory position. Impression: Hyperinflation and chronic interstitial changes with minimal basilar pleural thickening and likely superimposed pulmonary vascular congestion. Dictated by Nicola Trent MD @ 02/24/2021 8:09:06 AM (Electronically Signed)
[2021-02-24 08:22] LABS: BLOOD UREA NITROGEN,BUN 12 mg/dL (7.0-18.0); CARBON DIOXIDE,CO2 30.6 mmol/L (21.0-32.0); CHLORIDE,CL 99 mmol/L (98-107); GLUCOSE RANDOM 146 mg/dL (74-106); LIPASE 91 U/L (73-393); POTASSIUM,K 4.1 mmol/L (3.5-5.1); SODIUM,NA 137 mmol/L (136-148)
--- NOTE | 2021-02-24 10:54 | CT ---
Indication: Shortness of breath, blood in stool Technique: Volumetric multidetector CT images of the chest were obtained after the administration of IV contrast. 100 cc Isovue 370 low osmolar intravenous contrast Comparison: None available. Findings: The thoracic inlet demonstrates a right-sided Port-A-Cath in satisfactory position. The thoracic aorta is nonaneurysmal. There is no central filling defect to suggest pulmonary embolism. There is no mediastinal, hilar or axillary adenopathy. There is mild central bronchial thickening with minimal mucoid impaction of the lower lobe bronchi. There is moderate to severe centrilobular and paraseptal emphysematous changes with minimal basilar atelectasis and/or parenchymal scarring. Chronic appearing consolidation within the lingula is appreciated. There is no definite dense consolidation, effusion or pneumothorax. There is demonstration of a subcentimeter pulmonary nodule within the peripheral left upper lobe on series 401, image 119 measuring 4.0 millimeters. The partially visualized upper abdominal viscera are within normal limits. The thoracic vertebral body heights demonstrate extensive endplate Schmorl`s defects. There is no significant spondylolisthesis or displaced fracture. Impression: Moderate to severe centrilobular and paraseptal emphysematous changes with minimal basilar atelectasis and parenchymal scarring. No evidence of pulmonary embolus. Please note that all CT scans at this facility use dose modulation, iterative reconstruction, and/or weight-based dosing when appropriate to reduce radiation dose to as low as reasonably achievable. Dictated by Nicola Trent MD @ 02/24/2021 10:54:09 AM (Electronically Signed)
[2021-02-24] MEDS ORDERED: Pantoprazole 80 MG in Sodium Chloride 0.9% 10 ML IV ONE (13:04)
[2021-02-24] MEDS ORDERED: cefTRIAXone 1 GM in Premix Bag 1 BAG IV ONE (13:04)
--- NOTE | 2021-02-24 14:30 | CT ---
INDICATION: GI bleeding COMPARISON: A prior CT dated July 12, 2019 TECHNIQUE: CT examination of the abdomen and pelvis was performed without intravenous contrast. Thin section axial images were obtained from the lung bases through the pubic symphysis. Oral contrast was not administered. There is residual contrast especially within the bladder from a CT angio performed earlier this same day. Please note that all CT scans at this facility use dose modulation, iterative reconstruction, and/or weight-based dosing when appropriate to reduce radiation dose to as low as reasonably achievable. FINDINGS: LUNG BASES: Linear opacities at the lung bases are likely related to atelectasis.Atherosclerotic vascular calcifications associated with the heart. LIVER/BILIARY SYSTEM:Probable hepatic steatosis. No focal mass or biliary ductal dilatation.The gallbladder as visualized appears normal ADRENALS: No definite adrenal mass. KIDNEYS, URETERS and BLADDER:The kidneys are normal in size. No focal mass. No hydronephrosis or hydroureter. Bladder is distended and trabeculated with vesicular change. This pattern is most commonly due to chronic bladder outlet obstruction and sometimes chronic cystitis. This pattern was present on the prior examination. The prostate is enlarged. SPLEEN:Normal non-contrast appearance. PANCREAS: Normal non-contrast appearance. RETROPERITONEUM and MESENTERY: No adenopathy. Atherosclerosis of the aorta. Mild diffuse fusiform dilatation maximally measuring 3.1 centimeters. Diffuse ectasia of the iliac system . GASTROINTESTINAL SYSTEM: There is no evidence of diverticulitis, colitis, mechanical obstruction, or appendicitis. The small bowel as visualized appears normal.This study was not designed as in the angiogram/GI bleed study. However, there is no directly visible etiology for GI bleeding on this examination or evidence of contrast pooling within the lumen of the any of the visualized bowel. PELVIS: Abnormal bladder and prostate as described above. OSSEOUS STRUCTURES and ABDOMINAL WALL: Degenerative changes. No destructive process of bone. Small fat containing umbilical hernia OTHER: No free fluid or free air. IMPRESSION: 1. The study was not performed as a GI bleeding angiogram study. However, there is no directly visible etiology for GI bleeding such as a mass and there is no pooling of contrast anywhere within the GI system. 2. Distended bladder with trabeculation and fascicular change as was noted on the prior study. This is usually due to chronic bladder outlet obstruction and or chronic cystitis. The prostate is enlarged 3. Other incidental nonacute appearing findings as discussed in the body of the report. Please note that all CT scans at this facility use dose modulation, iterative reconstruction, and/or weight-based dosing when appropriate to reduce radiation dose to as low as reasonably achievable. Dictated by Cordell Garcia MD @ 02/24/2021 2:28:19 PM (Electronically Signed)
[2021-02-24] MEDS ORDERED: Levofloxacin/Dextrose 5%-Water 750 MG in Premix Bag 1 BAG IV SCH (15:00)
--- NOTE | 2021-02-24 15:05 | PCM.HP.2 ---
H&P History of Present Illness - General Date of Service: 02/24/21 Admit Problem/Dx: Admission Diagnosis/Problem Admission Diagnosis/Problem COPD, Moderate chronic obstructive pulmonary disease - History of Present Illness Initial Comments - Free Text/Narative: The patient is a 80-year-old male, on day 1 of service, who has a significant past medical history of COPD with occasional home oxygen use of 1 L, bladder cancer post chemoradiation and in remission, and gout, who was admitted to the medical floor due to a COPD exacerbation. For the past 4 days the patient has had increasing shortness of breath without fever. He has a home oxygen reader which showed that his saturation was less than 85% and as result he came to the hospital. On arrival he was saturating at 79% and was placed on oxygen. He has also had a 4-day history of cough productive of white sputum which is devoid of mucus and blood. He has not had any fever, recent sick contacts, sore throat, earache, runny nose, or other signs of infection. For the last 48 hours the patient has also had dark black stools and is scheduled for a colonoscopy later this week to assess for any abnormalities. On further interview he complains of pressure-like abdominal tightness in his lower abdomen below the umbilicus bilaterally. He denies any nausea, vomiting, or issues with urination. With respect to the patient's social history he quit smoking 30 years ago but previous to that he smoked for 25 years, half pack to a full pack a day. He denies any alcohol consumption or recreational drug use. His family history is noncontributory. The patient has allergies to ciprofloxacin and sulfa drugs. On CBC, his white blood cell count is 4.31, hemoglobin is 13.4, hematocrit is 39.5, platelets is 142, INR is 1.06, D-dimer is 0.60 On CMP, his sodium is 137, potassium is 4.1, chloride is 99, carbon dioxide 30.6, BUN is 12, creatinine is 1.0, glucose is 146 On chest x-ray, there is hyperinflation and chronic interstitial changes with basilar pleural thickening, pulmonary vascular congestion is seen On CTA, in the thoracic inlet there is a right-sided Port-A-Cath, there is no pulmonary embolism, there is moderate to severe centrilobular paraseptal emphysema with basilar atelectasis On urinalysis, no abnormalities are seen COVID-19 testing is negative EKG shows normal sinus rhythm In the emergency department, the patient was placed on cardiac monitoring/telemetry, he had a CT of the abdomen and pelvis, had 2 blood cultures drawn, was given duo nebulizer treatment, and for broad-spectrum a ntibiotic coverage was also given Rocephin 1 g, for his GI complaints he had a stool culture and Shiga toxin done. abdomen Pain Score (Numeric/FACES): 3 - Related Data Allergies/Adverse Reactions: Allergies Allergy/AdvReac Type Severity Reaction Status Date / Time ciprofloxacin Allergy and Verified 02/24/21 07:59 elevated blood sugar Sulfa (Sulfonamide Allergy Cannot Verified 02/24/21 07:59 Antibiotics) Remember Home Medications: Home Meds Albuterol [Ventolin HFA] 2 puff INH Q4H PRN 11/22/18 [History] Salmeterol Xinafoate [Serevent Diskus] 1 puff INH BID 11/22/18 [History] allopurinoL [Zyloprim] 100 mg PO DAILY PRN 11/22/18 [History] Tiotropium [Spiriva HandiHaler] 2 puff INH DAILY 07/12/19 [History] Past Medical History HEENT History: Reports: Other (See Below) Other HEENT History: wears glasses, has upper and lower dentures Cardiovascular History: Reports: None Respiratory History: Reports: COPD, SOB Gastrointestinal History: Reports: None Genitourinary History: Reports: Other (See Below) Other Genitourinary History: 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 Last Wednesday, velasco cath removed. Just returned from [facility] today at 4 pm Musculoskeletal History: Reports: Gout Neurological History: Reports: None Psychiatric History: Reports: None Endocrine/Metabolic History: Reports: None Other Endocrine/Metabolic History: Not on Diabetic medications. Checks blood sugar about 3 or 4 times a week. Hematologic History: Reports: None Immunologic History: Reports: None Oncologic (Cancer) History: Reports: Bladder Other Oncologic History: Will get a gene cath and start chemo in [place]. Not sure when. Dermatologic History: Reports: None - Infectious Disease History Infectious Disease History: Reports: Mumps - Past Surgical History Head Surgeries/Procedures: Reports: None HEENT Surgical History: Reports: Tonsillectomy Male Surgical History: Reports: Other (See Below) Other Male Surgeries/Procedures: Prostate surgery Social & Family History - Family History Family Medical History: No Pertinent Family History - Tobacco Use Tobacco Use Status *Q: Never Tobacco User Second Hand Smoke Exposure: No - Caffeine Use Caffeine Use: Reports: None - Recreational Drug Use Recreational Drug Use: No H&P Review of Systems - Review of Systems: Review Of Systems: See Below General: Denies: Fever, Chills HEENT: Denies: Headaches, Sinus Congestion Pulmonary: Reports: Shortness of Breath, Cough, Sputum Cardiovascular: Denies: Chest Pain, Palpitations, Dyspnea on Exertion Gastrointestinal: Reports: Abdominal Pain, Black Stool. Denies: Nausea, Vomiting Genitourinary: Denies: Dysuria Exam - Exam Exam: See Below - Vital Signs Vital Signs: Last Vital Signs Temp 99.1 F 02/24/21 07:42 Pulse 87 02/24/21 09:20 Resp 20 02/24/21 09:20 BP 118/63 02/24/21 09:20 Pulse Ox 99 02/24/21 09:20 Weight: 186 lb 3.2 oz - Exam General: Alert, Oriented, Cooperative HEENT: Mucosa Moist & [place], Normal Nasal Septum Neck: Trachea Midline Lungs: Wheezing Cardiovascular: Regular Rate, Regular Rhythm GI/Abdominal Exam: Normal Bowel Sounds, Tender Extremities: No Pedal Edema - Patient Data Lab Results Last 24 hrs: Laboratory Results - last 24 hr 02/24/21 02/24/21 02/24/21 Range/Units 07:45 07:45 07:45 WBC 4.31 (4.0-11.0) K/uL RBC 3.97 L (4.50-5.90) M/uL Hgb 13.4 (13.0-17.0) g/dL Hct 39.5 (38.0-50.0) % MCV 99.5 H (80.0-98.0) fL MCH 33.8 H (27.0-32.0) pg MCHC 33.9 (31.0-37.0) g/dL RDW Std Deviation 54.0 (28.0-62.0) fl RDW Coeff of Mat 15 (11.0-15.0) % Plt Count 142 L (150-400) K/uL MPV 10.70 (7.40-12.00) fL Add Manual Diff YES Neutrophils % (Manual) 39 L (48.0-80.0) % Band Neutrophils % 8 % Lymphocytes % (Manual) 46 H (16.0-40.0) % Monocytes % (Manual) 6 (0.0-15.0) % Eosinophils % (Manual) 1 (0.0-7.0) % Nucleated RBC % 0.0 /100WBC Absolute Seg Neuts 1.7 (1.4-5.7) Band Neutrophils # 0.3 Lymphocytes # (Manual) 2.0 (0.6-2.4) Monocytes # (Manual) 0.3 (0.0-0.8) Eosinophils # (Manual) 0.0 (0.0-0.7) Nucleated RBCs # 0 K/uL Reactive Lymphocytes FEW INR 1.06 D-Dimer, Quantitative 0.60 H (0.0-0.50) mg/L FEU Sodium 137 (136-148) mmol/L Potassium 4.1 (3.5-5.1) mmol/L Chloride 99 (98-107) mmol/L Carbon Dioxide 30.6 (21.0-32.0) mmol/L BUN 12 (7.0-18.0) mg/dL Creatinine 1.0 (0.8-1.3) mg/dL Est Cr Clr Drug Dosing 57.93 mL/min Estimated GFR (MDRD) > 60.0 ml/min Glucose 146 H (74-106) mg/dL Lactic Acid (0.4-2.0) mmol/L Calcium 9.2 (8.5-10.1) mg/dL Total Bilirubin 1.0 (0.2-1.0) mg/dL AST 19 (15-37) IU/L ALT 25 (14-63) IU/L Alkaline Phosphatase 84 (46-116) U/L Troponin I < 0.050 (0.000-0.056) ng/mL B-Natriuretic Peptide (<100) PG/ML Total Protein 8.4 H (6.4-8.2) g/dL Albumin 4.3 (3.4-5.0) g/dL Globulin 4.1 H (2.6-4.0) g/dL Albumin/Globulin Ratio 1.1 (0.9-1.6) Lipase 91 (73-393) U/L Urine Color Urine Appearance Urine pH (5.0-8.0) Ur Specific [place] (1.001-1.035) Urine Protein (NEGATIVE) mg/dL Urine Glucose (UA) (NEGATIVE) mg/dL Urine Ketones (NEGATIVE) mg/dL Urine Occult Blood (NEGATIVE) Urine Nitrite (NEGATIVE) Urine Bilirubin (NEGATIVE) Urine Urobilinogen (<2.0) EU/dL Ur Leukocyte Esterase (NEGATIVE) Urine RBC (0-2/HPF) Urine WBC (0-5/HPF) Ur Epithelial Cells (NONE-FEW) Urine Bacteria (NEGATIVE) Urine Mucus (NONE-MOD) SARS-CoV-2 RNA ([place]) (NEGATIVE) Blood Type Antibody Screen 02/24/21 02/24/21 02/24/21 Range/Units 07:45 07:45 08:00 WBC (4.0-11.0) K/uL RBC (4.50-5.90) M/uL Hgb (13.0-17.0) g/dL Hct (38.0-50.0) % MCV (80.0-98.0) fL MCH (27.0-32.0) pg MCHC (31.0-37.0) g/dL RDW Std Deviation (28.0-62.0) fl RDW Coeff of Mat (11.0-15.0) % Plt Count (150-400) K/uL MPV (7.40-12.00) fL Add Manual Diff Neutrophils % (Manual) (48.0-80.0) % Band Neutrophils % % Lymphocytes % (Manual) (16.0-40.0) % Monocytes % (Manual) (0.0-15.0) % Eosinophils % (Manual) (0.0-7.0) % Nucleated RBC % /100WBC Absolute Seg Neuts (1.4-5.7) Band Neutrophils # Lymphocytes # (Manual) (0.6-2.4) Monocytes # (Manual) (0.0-0.8) Eosinophils # (Manual) (0.0-0.7) Nucleated RBCs # K/uL Reactive Lymphocytes INR D-Dimer, Quantitative (0.0-0.50) mg/L FEU Sodium (136-148) mmol/L Potassium (3.5-5.1) mmol/L Chloride (98-107) mmol/L Carbon Dioxide (21.0-32.0) mmol/L BUN (7.0-18.0) mg/dL Creatinine (0.8-1.3) mg/dL Est Cr Clr Drug Dosing mL/min Estimated GFR (MDRD) ml/min Glucose (74-106) mg/dL Lactic Acid 1.7 (0.4-2.0) mmol/L Calcium (8.5-10.1) mg/dL Total Bilirubin (0.2-1.0) mg/dL AST (15-37) IU/L ALT (14-63) IU/L Alkaline Phosphatase (46-116) U/L Troponin I (0.000-0.056) ng/mL B-Natriuretic Peptide 20 (<100) PG/ML Total Protein (6.4-8.2) g/dL Albumin (3.4-5.0) g/dL Globulin (2.6-4.0) g/dL Albumin/Globulin Ratio (0.9-1.6) Lipase (73-393) U/L Urine Color Urine Appearance Urine pH (5.0-8.0) Ur Specific [place] (1.001-1.035) Urine Protein (NEGATIVE) mg/dL Urine Glucose (UA) (NEGATIVE) mg/dL Urine Ketones (NEGATIVE) mg/dL Urine Occult Blood (NEGATIVE) Urine Nitrite (NEGATIVE) Urine Bilirubin (NEGATIVE) Urine Urobilinogen (<2.0) EU/dL Ur Leukocyte Esterase (NEGATIVE) Urine RBC (0-2/HPF) Urine WBC (0-5/HPF) Ur Epithelial Cells (NONE-FEW) Urine Bacteria (NEGATIVE) Urine Mucus (NONE-MOD) SARS-CoV-2 RNA ([place]) NEGATIVE (NEGATIVE) Blood Type Antibody Screen 02/24/21 02/24/21 Range/Units 08:30 10:00 WBC (4.0-11.0) K/uL RBC (4.50-5.90) M/uL Hgb (13.0-17.0) g/dL Hct (38.0-50.0) % MCV (80.0-98.0) fL MCH (27.0-32.0) pg MCHC (31.0-37.0) g/dL RDW Std Deviation (28.0-62.0) fl RDW Coeff of Mat (11.0-15.0) % Plt Count (150-400) K/uL MPV (7.40-12.00) fL Add Manual Diff Neutrophils % (Manual) (48.0-80.0) % Band Neutrophils % % Lymphocytes % (Manual) (16.0-40.0) % Monocytes % (Manual) (0.0-15.0) % Eosinophils % (Manual) (0.0-7.0) % Nucleated RBC % /100WBC Absolute Seg Neuts (1.4-5.7) Band Neutrophils # Lymphocytes # (Manual) (0.6-2.4) Monocytes # (Manual) (0.0-0.8) Eosinophils # (Manual) (0.0-0.7) Nucleated RBCs # K/uL Reactive Lymphocytes INR D-Dimer, Quantitative (0.0-0.50) mg/L FEU Sodium (136-148) mmol/L Potassium (3.5-5.1) mmol/L Chloride (98-107) mmol/L Carbon Dioxide (21.0-32.0) mmol/L BUN (7.0-18.0) mg/dL Creatinine (0.8-1.3) mg/dL Est Cr Clr Drug Dosing mL/min Estimated GFR (MDRD) ml/min Glucose (74-106) mg/dL Lactic Acid (0.4-2.0) mmol/L Calcium (8.5-10.1) mg/dL Total Bilirubin (0.2-1.0) mg/dL AST (15-37) IU/L ALT (14-63) IU/L Alkaline Phosphatase (46-116) U/L Troponin I (0.000-0.056) ng/mL B-Natriuretic Peptide (<100) PG/ML Total Protein (6.4-8.2) g/dL Albumin (3.4-5.0) g/dL Globulin (2.6-4.0) g/dL Albumin/Globulin Ratio (0.9-1.6) Lipase (73-393) U/L Urine Color YELLOW Urine Appearance CLEAR Urine pH 7.0 (5.0-8.0) Ur Specific [place] 1.015 (1.001-1.035) Urine Protein NEGATIVE (NEGATIVE) mg/dL Urine Glucose (UA) NEGATIVE (NEGATIVE) mg/dL Urine Ketones NEGATIVE (NEGATIVE) mg/dL Urine Occult Blood TRACE-INTACT H (NEGATIVE) Urine Nitrite NEGATIVE (NEGATIVE) Urine Bilirubin NEGATIVE (NEGATIVE) Urine Urobilinogen 0.2 (<2.0) EU/dL Ur Leukocyte Esterase NEGATIVE (NEGATIVE) Urine RBC NONE SEEN (0-2/HPF) Urine WBC 0-1 (0-5/HPF) Ur Epithelial Cells RARE (NONE-FEW) Urine Bacteria RARE (NEGATIVE) Urine Mucus LIGHT (NONE-MOD) SARS-CoV-2 RNA ([place]) (NEGATIVE) Blood Type O NEGATIVE Antibody Screen NEGATIVE Result Diagrams: 02/24/21 07:45 02/24/21 07:45 Sepsis Event Note - Evaluation Sepsis Screening Result: No Definite Risk - Focused Exam Vital Signs: Vital Signs Temp Temp Pulse Resp BP Pulse Ox 02/24/21 09:20 87 20 118/63 99 02/24/21 07:42 98.6 F 99.1 F 146 H 18 156/81 H 79 L - Problem List (1) COPD exacerbation SNOMED Code(s): 477271773 ICD Code: J44.1 - CHRONIC OBSTRUCTIVE PULMONARY DISEASE W (ACUTE) EXACERBATION Status: Acute Current Visit: Yes (2) GI bleed SNOMED Code(s): 65154065 ICD Code: K92.2 - GASTROINTESTINAL HEMORRHAGE, UNSPECIFIED Status: Acute Current Visit: Yes Problem List Initiated/Reviewed/Updated: Yes Orders Last 24hrs: Active Orders 24 hr Category Date Time Status Admission Status [Patient Status] [ADT] Stat ADT 02/24/21 13:35 Active Antiembolic Devices [RC] PER UNIT ROUTINE Care 02/24/21 14:59 Ordered Cardiac Monitoring [RC] . DIRECTED Care 02/24/21 07:57 Active Cardiac Monitoring [RC] . DIRECTED Care 02/24/21 13:35 Active RT Aerosol Therapy [RC] ASDIRECTED Care 02/24/21 07:58 Active RT Aerosol Therapy [RC] ASDIRECTED Care 02/24/21 14:58 Ordered Regular Diet [DIET] Diet 02/24/21 Dinner Ordered CBC WITH AUTO DIFF [HEME] AM Lab 02/25/21 05:11 Ordered CBC WITH AUTO DIFF [HEME] AM Lab 02/26/21 05:11 Ordered CBC WITH AUTO DIFF [HEME] AM Lab 02/27/21 05:11 Ordered CBC WITH AUTO DIFF [HEME] AM Lab 02/28/21 05:11 Ordered CMP [COMPREHENSIVE METABOLIC PN,CMP] [CHEM] AM Lab 02/25/21 05:11 Ordered CMP [COMPREHENSIVE METABOLIC PN,CMP] [CHEM] AM Lab 02/26/21 05:11 Ordered CMP [COMPREHENSIVE METABOLIC PN,CMP] [CHEM] AM Lab 02/27/21 05:11 Ordered CMP [COMPREHENSIVE METABOLIC PN,CMP] [CHEM] AM Lab 02/28/21 05:11 Ordered CULTURE BLOOD [BC] Stat Lab 02/24/21 07:48 Received CULTURE BLOOD [BC] Stat Lab 02/24/21 08:30 Received STOOL CULTURE/SHIGA TOXIN [MREF] Stat Lab 02/24/21 13:19 Ordered Albuterol/Ipratropium [DuoNeb 3.0-0.5 MG/3 ML] Med 02/24/21 18:00 Ordered 3 ml NEB Q4HRRT Levofloxacin/Dextrose 5%-Water [Levaquin in D5W 750 MG/ Med 02/24/21 15:00 Ordered 150 ML] 750 mg Premix Bag 1 bag IV Q24H Pantoprazole [ProTONIX IV] 40 mg Med 02/25/21 09:00 Ordered Sodium Chloride 0.9% [Normal Saline] 10 ml IV DAILY Sodium Chloride 0.9% [Saline Flush] Med 02/24/21 07:57 Active 10 ml FLUSH ASDIRECTED PRN Sodium Chloride 0.9% [Saline Flush] Med 02/24/21 07:57 Active 2.5 ml FLUSH ASDIRECTED PRN Blood Culture x2 Reflex Set [OM.PC] Stat Oth 02/24/21 07:57 Ordered SCD [Sequential Compression Device] [OM.PC] Routine Oth 02/24/21 14:59 Ordered Saline Lock Insert [OM.PC] Stat Oth 02/24/21 07:57 Ordered Medication Orders Albuterol/Ipratropium (Albuterol/Ipratropium 3.0-0.5 Mg/3 Ml Neb Soln) 3 ml NEB Q4HRRT TRANG Levofloxacin/Dextrose 750 mg/ (Premix) 150 mls @ 100 mls/hr IV Q24H TRANG Pantoprazole Sodium 40 mg/ (Sodium Chloride) 10 mls @ 300 mls/hr IV DAILY TRANG Sodium Chloride (Sodium Chloride 0.9% 10 Ml Syringe) 10 ml FLUSH ASDIRECTED PRN PRN Reason: Keep Vein Open Last Admin: 02/24/21 08:04 Dose: 10 ml Documented by: [place] Sodium Chloride (Sodium Chloride 0.9% 2.5 Ml Syringe) 2.5 ml FLUSH ASDIRECTED PRN PRN Reason: Keep Vein Open Last Admin: 02/24/21 08:04 Dose: 2.5 ml Documented by: [place] Assessment/Plan Comment:: Admit the patient to the medical floor, vitals per unit routine, activity up ad madeline., DVT prophylaxis with SCDs, GI prophylaxis with pantoprazole per IV route, the patient is DNI/DNR, Daily CBC/CMP's. 1. COPD exacerbation -We will start the patient on Rocephin 1 g per IV route every 24 hours as well as azithromycin 500 mg per IV route every 24 hours. -For shortness of breath, the patient will be treated with duo nebulizer treatments every 4 hours scheduled. -Due to the patient's complaints of GI bleeding, we will avoid any steroid treatment at this time and reassess his breathing status tomorrow. -The patient currently does not require oxygen and is at room air, will supply oxygen as needed. 2. GI bleed -Dr. Buchanan from surgery was consulted in order to see the patient and perform a colonoscopy to assess for any abnormalities which may be causing the patient's GI bleeding. She will see the patient after he has been medically stabilized from his COPD exacerbation. -Based on her recommendations, the patient can have a regular diet and does not need to be n.p.o. at the moment..
[2021-02-24] MEDS ORDERED: Iopamidol 755 MG/ML 500 ML Multipack Bottle IVPUSH STA (15:53)
--- NOTE | 2021-02-24 16:01 | PCM.CONS ---
H&P History of Present Illness - General Date of Service: 02/24/21 Admit Problem/Dx: Admission Diagnosis/Problem Admission Diagnosis/Problem COPD, Moderate chronic obstructive pulmonary disease - History of Present Illness Initial Comments - Free Text/Narative: Patient is a 80-year-old male who presented to the ER with increased shortness of breath as well as melena. He has a history of COPD, gout, atherosclerotic disease, and GI bleed in the past. He had an EGD in [place] previously for a GI bleed. This was normal. It was recommended that he undergo a follow-up colonoscopy once he had recovered. This was never done. He was scheduled to see a surgeon this week in consultation for colonoscopy. Last Wednesday he noted some dark appearing stools. He denied any diarrhea. He has never had a colonoscopy and denies any family history of colon cancer. He was Covid negative. CT scan of the abdomen and pelvis was performed in the emergency room. This showed no evidence of any inflammation of the GI tract. There was no pooling of contrast to suggest an active bleed. Is admitted to medicine team for COPD exacerbation and his oxygen saturations have increased. He is feeling much better. He has not had a BM today. abdomen Pain Score (Numeric/FACES): 3 - Related Data Allergies/Adverse Reactions: Allergies Allergy/AdvReac Type Severity Reaction Status Date / Time ciprofloxacin Allergy and Verified 02/24/21 07:59 elevated blood sugar Sulfa (Sulfonamide Allergy Cannot Verified 02/24/21 07:59 Antibiotics) Remember Home Medications: Home Meds Albuterol [Ventolin HFA] 2 puff INH Q4H PRN 11/22/18 [History] Salmeterol Xinafoate [Serevent Diskus] 1 puff INH BID 11/22/18 [History] allopurinoL [Zyloprim] 100 mg PO DAILY PRN 11/22/18 [History] Tiotropium [Spiriva HandiHaler] 2 puff INH DAILY 07/12/19 [History] Past Medical History HEENT History: Reports: Other (See Below) Other HEENT History: wears glasses, has upper and lower dentures Cardiovascular History: Reports: None Respiratory History: Reports: COPD, SOB Gastrointestinal History: Reports: None Genitourinary History: Reports: Other (See Below) Other Genitourinary History: 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 Last Wednesday, velasco cath removed. Just returned from [facility] today at 4 pm Musculoskeletal History: Reports: Gout Neurological History: Reports: None Psychiatric History: Reports: None Endocrine/Metabolic History: Reports: None Other Endocrine/Metabolic History: Not on Diabetic medications. Checks blood sugar about 3 or 4 times a week. Hematologic History: Reports: None Immunologic History: Reports: None Oncologic (Cancer) History: Reports: Bladder Other Oncologic History: Will get a gene cath and start chemo in [place]. Not sure when. Dermatologic History: Reports: None - Infectious Disease History Infectious Disease History: Reports: Chicken Pox, Measles, Mumps - Past Surgical History Head Surgeries/Procedures: Reports: None HEENT Surgical History: Reports: Tonsillectomy Cardiovascular Surgical History: Reports: None Respiratory Surgical History: Reports: None GI Surgical History: Reports: None Male Surgical History: Reports: Other (See Below) Other Male Surgeries/Procedures: Prostate surgery Endocrine Surgical History: Reports: None Neurological Surgical History: Reports: None Musculoskeletal Surgical History: Reports: None Oncologic Surgical History: Reports: Other (See Below) Other Oncologic Surgeries/Procedures: Bladder tumor removed May 15. Dermatological Surgical History: Reports: None Social & Family History - Family History Family Medical History: No Pertinent Family History - Tobacco Use Tobacco Use Status *Q: Former Tobacco User Used Tobacco, but Quit: Yes Month/Year Tobacco Last Used: Thirty years prior Second Hand Smoke Exposure: No - Caffeine Use Caffeine Use: Reports: Coffee, Tea Other Caffeine Use: Four cups daily - Recreational Drug Use Recreational Drug Use: No H&P Review of Systems - Review of Systems: Review Of Systems: See Below Exam - Exam Exam: See Below - Vital Signs Vital Signs: Last Vital Signs Temp 37.3 C 02/24/21 07:42 Pulse 87 02/24/21 09:20 Resp 20 02/24/21 09:20 BP 118/63 02/24/21 09:20 Pulse Ox 99 02/24/21 09:20 Weight: 81.828 kg - Exam Quality Assessment: Supplemental Oxygen General: Alert, Oriented HEENT: Conjunctiva Clear, Mucosa Moist & [place], Posterior Pharynx Clear Neck: Supple Lungs: Clear to Auscultation, Normal Respiratory Effort, Decreased Breath Sounds (to bases ) Cardiovascular: Regular Rate, Regular Rhythm GI/Abdominal Exam: Soft, Non-Tender, No Distention, No Mass Back Exam: Normal Inspection, Full Range of Motion Extremities: Normal Inspection, Normal Range of Motion Skin: Warm, Dry, Intact Neuro Extensive - Mental Status: Alert, Oriented x3, Normal Mood/Affect Psychiatric: Alert, Normal Affect, Normal Mood - Patient Data Lab Results Last 24 hrs: Laboratory Results - last 24 hr 02/24/21 02/24/21 02/24/21 Range/Units 07:45 07:45 07:45 WBC 4.31 (4.0-11.0) K/uL RBC 3.97 L (4.50-5.90) M/uL Hgb 13.4 (13.0-17.0) g/dL Hct 39.5 (38.0-50.0) % MCV 99.5 H (80.0-98.0) fL MCH 33.8 H (27.0-32.0) pg MCHC 33.9 (31.0-37.0) g/dL RDW Std Deviation 54.0 (28.0-62.0) fl RDW Coeff of Mat 15 (11.0-15.0) % Plt Count 142 L (150-400) K/uL MPV 10.70 (7.40-12.00) fL Add Manual Diff YES Neutrophils % (Manual) 39 L (48.0-80.0) % Band Neutrophils % 8 % Lymphocytes % (Manual) 46 H (16.0-40.0) % Monocytes % (Manual) 6 (0.0-15.0) % Eosinophils % (Manual) 1 (0.0-7.0) % Nucleated RBC % 0.0 /100WBC Absolute Seg Neuts 1.7 (1.4-5.7) Band Neutrophils # 0.3 Lymphocytes # (Manual) 2.0 (0.6-2.4) Monocytes # (Manual) 0.3 (0.0-0.8) Eosinophils # (Manual) 0.0 (0.0-0.7) Nucleated RBCs # 0 K/uL Reactive Lymphocytes FEW INR 1.06 D-Dimer, Quantitative 0.60 H (0.0-0.50) mg/L FEU Sodium 137 (136-148) mmol/L Potassium 4.1 (3.5-5.1) mmol/L Chloride 99 (98-107) mmol/L Carbon Dioxide 30.6 (21.0-32.0) mmol/L BUN 12 (7.0-18.0) mg/dL Creatinine 1.0 (0.8-1.3) mg/dL Est Cr Clr Drug Dosing 57.93 mL/min Estimated GFR (MDRD) > 60.0 ml/min Glucose 146 H (74-106) mg/dL Lactic Acid (0.4-2.0) mmol/L Calcium 9.2 (8.5-10.1) mg/dL Total Bilirubin 1.0 (0.2-1.0) mg/dL AST 19 (15-37) IU/L ALT 25 (14-63) IU/L Alkaline Phosphatase 84 (46-116) U/L Troponin I < 0.050 (0.000-0.056) ng/mL B-Natriuretic Peptide (<100) PG/ML Total Protein 8.4 H (6.4-8.2) g/dL Albumin 4.3 (3.4-5.0) g/dL Globulin 4.1 H (2.6-4.0) g/dL Albumin/Globulin Ratio 1.1 (0.9-1.6) Lipase 91 (73-393) U/L Urine Color Urine Appearance Urine pH (5.0-8.0) Ur Specific [place] (1.001-1.035) Urine Protein (NEGATIVE) mg/dL Urine Glucose (UA) (NEGATIVE) mg/dL Urine Ketones (NEGATIVE) mg/dL Urine Occult Blood (NEGATIVE) Urine Nitrite (NEGATIVE) Urine Bilirubin (NEGATIVE) Urine Urobilinogen (<2.0) EU/dL Ur Leukocyte Esterase (NEGATIVE) Urine RBC (0-2/HPF) Urine WBC (0-5/HPF) Ur Epithelial Cells (NONE-FEW) Urine Bacteria (NEGATIVE) Urine Mucus (NONE-MOD) SARS-CoV-2 RNA ([facility]) (NEGATIVE) Blood Type Antibody Screen 02/24/21 02/24/21 02/24/21 Range/Units 07:45 07:45 08:00 WBC (4.0-11.0) K/uL RBC (4.50-5.90) M/uL Hgb (13.0-17.0) g/dL Hct (38.0-50.0) % MCV (80.0-98.0) fL MCH (27.0-32.0) pg MCHC (31.0-37.0) g/dL RDW Std Deviation (28.0-62.0) fl RDW Coeff of Mat (11.0-15.0) % Plt Count (150-400) K/uL MPV (7.40-12.00) fL Add Manual Diff Neutrophils % (Manual) (48.0-80.0) % Band Neutrophils % % Lymphocytes % (Manual) (16.0-40.0) % Monocytes % (Manual) (0.0-15.0) % Eosinophils % (Manual) (0.0-7.0) % Nucleated RBC % /100WBC Absolute Seg Neuts (1.4-5.7) Band Neutrophils # Lymphocytes # (Manual) (0.6-2.4) Monocytes # (Manual) (0.0-0.8) Eosinophils # (Manual) (0.0-0.7) Nucleated RBCs # K/uL Reactive Lymphocytes INR D-Dimer, Quantitative (0.0-0.50) mg/L FEU Sodium (136-148) mmol/L Potassium (3.5-5.1) mmol/L Chloride (98-107) mmol/L Carbon Dioxide (21.0-32.0) mmol/L BUN (7.0-18.0) mg/dL Creatinine (0.8-1.3) mg/dL Est Cr Clr Drug Dosing mL/min Estimated GFR (MDRD) ml/min Glucose (74-106) mg/dL Lactic Acid 1.7 (0.4-2.0) mmol/L Calcium (8.5-10.1) mg/dL Total Bilirubin (0.2-1.0) mg/dL AST (15-37) IU/L ALT (14-63) IU/L Alkaline Phosphatase (46-116) U/L Troponin I (0.000-0.056) ng/mL B-Natriuretic Peptide 20 (<100) PG/ML Total Protein (6.4-8.2) g/dL Albumin (3.4-5.0) g/dL Globulin (2.6-4.0) g/dL Albumin/Globulin Ratio (0.9-1.6) Lipase (73-393) U/L Urine Color Urine Appearance Urine pH (5.0-8.0) Ur Specific [place] (1.001-1.035) Urine Protein (NEGATIVE) mg/dL Urine Glucose (UA) (NEGATIVE) mg/dL Urine Ketones (NEGATIVE) mg/dL Urine Occult Blood (NEGATIVE) Urine Nitrite (NEGATIVE) Urine Bilirubin (NEGATIVE) Urine Urobilinogen (<2.0) EU/dL Ur Leukocyte Esterase (NEGATIVE) Urine RBC (0-2/HPF) Urine WBC (0-5/HPF) Ur Epithelial Cells (NONE-FEW) Urine Bacteria (NEGATIVE) Urine Mucus (NONE-MOD) SARS-CoV-2 RNA ([place]) NEGATIVE (NEGATIVE) Blood Type Antibody Screen 02/24/21 02/24/21 Range/Units 08:30 10:00 WBC (4.0-11.0) K/uL RBC (4.50-5.90) M/uL Hgb (13.0-17.0) g/dL Hct (38.0-50.0) % MCV (80.0-98.0) fL MCH (27.0-32.0) pg MCHC (31.0-37.0) g/dL RDW Std Deviation (28.0-62.0) fl RDW Coeff of Mat (11.0-15.0) % Plt Count (150-400) K/uL MPV (7.40-12.00) fL Add Manual Diff Neutrophils % (Manual) (48.0-80.0) % Band Neutrophils % % Lymphocytes % (Manual) (16.0-40.0) % Monocytes % (Manual) (0.0-15.0) % Eosinophils % (Manual) (0.0-7.0) % Nucleated RBC % /100WBC Absolute Seg Neuts (1.4-5.7) Band Neutrophils # Lymphocytes # (Manual) (0.6-2.4) Monocytes # (Manual) (0.0-0.8) Eosinophils # (Manual) (0.0-0.7) Nucleated RBCs # K/uL Reactive Lymphocytes INR D-Dimer, Quantitative (0.0-0.50) mg/L FEU Sodium (136-148) mmol/L Potassium (3.5-5.1) mmol/L Chloride (98-107) mmol/L Carbon Dioxide (21.0-32.0) mmol/L BUN (7.0-18.0) mg/dL Creatinine (0.8-1.3) mg/dL Est Cr Clr Drug Dosing mL/min Estimated GFR (MDRD) ml/min Glucose (74-106) mg/dL Lactic Acid (0.4-2.0) mmol/L Calcium (8.5-10.1) mg/dL Total Bilirubin (0.2-1.0) mg/dL AST (15-37) IU/L ALT (14-63) IU/L Alkaline Phosphatase (46-116) U/L Troponin I (0.000-0.056) ng/mL B-Natriuretic Peptide (<100) PG/ML Total Protein (6.4-8.2) g/dL Albumin (3.4-5.0) g/dL Globulin (2.6-4.0) g/dL Albumin/Globulin Ratio (0.9-1.6) Lipase (73-393) U/L Urine Color YELLOW Urine Appearance CLEAR Urine pH 7.0 (5.0-8.0) Ur Specific [place] 1.015 (1.001-1.035) Urine Protein NEGATIVE (NEGATIVE) mg/dL Urine Glucose (UA) NEGATIVE (NEGATIVE) mg/dL Urine Ketones NEGATIVE (NEGATIVE) mg/dL Urine Occult Blood TRACE-INTACT H (NEGATIVE) Urine Nitrite NEGATIVE (NEGATIVE) Urine Bilirubin NEGATIVE (NEGATIVE) Urine Urobilinogen 0.2 (<2.0) EU/dL Ur Leukocyte Esterase NEGATIVE (NEGATIVE) Urine RBC NONE SEEN (0-2/HPF) Urine WBC 0-1 (0-5/HPF) Ur Epithelial Cells RARE (NONE-FEW) Urine Bacteria RARE (NEGATIVE) Urine Mucus LIGHT (NONE-MOD) SARS-CoV-2 RNA ([place]) (NEGATIVE) Blood Type O NEGATIVE Antibody Screen NEGATIVE Result Diagrams: 02/24/21 07:45 02/24/21 07:45 Sepsis Event Note - Evaluation Sepsis Screening Result: No Definite Risk - Focused Exam Vital Signs: Vital Signs Temp Temp Pulse Resp BP Pulse Ox 02/24/21 09:20 87 20 118/63 99 02/24/21 07:42 37.0 C 37.3 C 146 H 18 156/81 H 79 L Consult PN Assessment/Plan Procedures: Procedures ASSAY OF AMYLASE (06/10/19) ASSAY OF BLOOD/URIC ACID (03/08/17) ASSAY OF LACTIC ACID (07/12/19) ASSAY OF LIPASE (06/10/19) ASSAY OF MAGNESIUM (06/21/19) ASSAY OF NATRIURETIC PEPTIDE (03/01/17) ASSAY OF TROPONIN QUANT (06/10/19) BLOOD CULTURE FOR BACTERIA (07/12/19) BLOOD GASES ANY COMBINATION (07/12/19) BLOOD TRANSFUSION SERVICE (07/12/19) BLOOD TYPING SEROLOGIC ABO (07/12/19) BLOOD TYPING SEROLOGIC RH(D) (07/12/19) C-REACTIVE PROTEIN (03/15/17) CHEMO IV INFUS EACH ADDL SEQ (06/21/19) CHEMO IV INFUSION 1 HR (06/21/19) CHEST X-RAY 2VW FRONTAL&LATL (01/22/16) COMPATIBILITY TEST ANTIGLOB (07/12/19) COMPATIBILITY TEST INCUBATE (07/12/19) COMPATIBILITY TEST SPIN (07/12/19) COMPLETE CBC W/AUTO DIFF WBC (07/12/19) COMPREHEN METABOLIC PANEL (07/12/19) CT ABD & PELV W/CONTRAST (07/12/19) CT ABD & PELVIS W/O CONTRAST (10/25/18) CYSTOSCOPY AND TREATMENT (11/28/18) CYSTOSCOPY AND TREATMENT (11/24/18) DRAW BLOOD OFF VENOUS DEVICE (06/21/19) ELECTROCARDIOGRAM TRACING (06/10/19) EMERGENCY DEPT VISIT (07/12/19) EMERGENCY DEPT VISIT (06/10/19) EMERGENCY DEPT VISIT (06/06/19) EMERGENCY DEPT VISIT (06/04/19) EMERGENCY DEPT VISIT (11/27/18) EVALUATION OF WHEEZING (12/17/14) GLYCOSYLATED HEMOGLOBIN TEST (03/08/17) HEMATOCRIT (11/28/18) HEMOGLOBIN (11/28/18) HYDRATE IV INFUSION ADD-ON (07/12/19) IMMUNIZATION ADMIN EACH ADD (12/20/14) INSERT TEMP BLADDER CATH (11/27/18) IRRIGATION OF BLADDER (06/04/19) METABOLIC PANEL TOTAL CA (06/04/19) MICROBE SUSCEPTIBLE UMESH (01/02/19) OFFICE O/P EST LOW 20-29 MIN (07/03/15) OFFICE O/P EST MOD 30-39 MIN (03/08/17) PPSV23 VACC 2 YRS+ SUBQ/IM (12/20/14) PROTHROMBIN TIME (11/25/18) RBC ANTIBODY SCREEN (07/12/19) ROUTINE VENIPUNCTURE (07/12/19) TDAP VACCINE 7 YRS/> IM (12/20/14) THER/PROPH/DIAG INJ IV PUSH (07/12/19) THER/PROPH/DIAG IV INF ADDON (06/21/19) THER/PROPH/DIAG IV INF INIT (06/21/19) TISSUE EXAM BY PATHOLOGIST (11/24/18) TISSUE EXAM BY PATHOLOGIST (11/24/18) TX/PRO/DX INJ NEW DRUG ADDON (06/21/19) TX/PROPH/DG ADDL SEQ IV INF (06/21/19) URINALYSIS AUTO W/SCOPE (06/04/19) URINE BACTERIA CULTURE (01/02/19) URINE CULTURE/COLONY COUNT (02/03/19) US URINE CAPACITY MEASURE (06/06/19) X-RAY EXAM CHEST 2 VIEWS (06/10/19) (1) GI bleed SNOMED Code(s): 93769264 Code(s): K92.2 - GASTROINTESTINAL HEMORRHAGE, UNSPECIFIED Current Visit: Yes Problem List Initiated/Reviewed/Updated: Yes My Orders Last 24 Hours: Patient is an 80 year old male with a GI bleed. FOBT in the ER was positive. I discussed performing an EGD and colonoscopy in house. The patient and I discussed the need given his ongoing melena. Would continue to monitor hemoglobin. Will start bowel prep tomorrow. Bowel prep: 1) Clear liquid diet starting at midnight. 2) #4, Dulcolax 5mg tablets at 10am. 3) 119gm Miralax with 32 oz Gatorade at 12. Gatorade cannot be purple or red. 4) Repeat Miralax/Gatorade mix at 4pm and be finished with prep by 6pm. 5) NPO wednesday morning Call with questions. Will continue to follow patient.
[2021-02-24] MEDS: Albuterol/Ipratropium 3.0-0.5 MG/3 ML Neb Soln NEB SCH ×2 (17:03→21:28)
[2021-02-24] MEDS: Azithromycin 500 MG in Sodium Chloride 0.9% 250 ML IV SCH (18:11)
[2021-02-24] MEDS: Pantoprazole 40 MG in Sodium Chloride 0.9% 10 ML IV SCH (20:30)
[2021-02-25] MEDS: Albuterol/Ipratropium 3.0-0.5 MG/3 ML Neb Soln NEB SCH ×3 (01:30→09:24)
[2021-02-25 07:25] LABS: BLOOD UREA NITROGEN,BUN 15 mg/dL (7.0-18.0); CARBON DIOXIDE,CO2 29.3 mmol/L (21.0-32.0); CHLORIDE,CL 102 mmol/L (98-107); GLUCOSE RANDOM 131 mg/dL (74-106); POTASSIUM,K 3.9 mmol/L (3.5-5.1); SODIUM,NA 139 mmol/L (136-148)
[2021-02-25] MEDS: Pantoprazole 40 MG in Sodium Chloride 0.9% 10 ML IV SCH ×2 (08:43→21:21)
[2021-02-25] MEDS: Azithromycin 500 MG in Sodium Chloride 0.9% 250 ML IV SCH (08:52)
[2021-02-25] MEDS ORDERED: Pantoprazole 40 MG in Sodium Chloride 0.9% 10 ML IV SCH (09:00)
[2021-02-25] MEDS ORDERED: Bisacodyl 5 MG Tab PO ONE (10:00)
--- NOTE | 2021-02-25 11:16 | PCM.PN ---
- General Info Date of Service: 02/25/21 Subjective Update: The patient is a 80-year-old male, on day 2 of service, who has a significant past medical history of COPD with occasional home oxygen use of 1 L, bladder cancer post chemoradiation and in remission, and gout, who was admitted to the medical floor due to a COPD exacerbation and a GI bleed. With respect to the patient's COPD exacerbation, he is on antibiotics and his shortness of breath has completely resolved to the point where he is currently on room air. In regards to his GI bleed, he will have a bowel prep done today with MiraLAX, Gatorade, Dulcolax, and n.p.o. at midnight before having a colonoscopy and EGD done tomorrow by Dr. Buchanan from surgery. Upon interview with the patient he has no other health concerns at this time. - Review of Systems General: Denies: Fever, Fatigue HEENT: Denies: Sore Throat Pulmonary: Denies: Shortness of Breath, Cough Cardiovascular: Denies: Chest Pain, Palpitations Gastrointestinal: Denies: Abdominal Pain Genitourinary: Denies: Dysuria - Patient Data Vitals - Most Recent: Last Vital Signs Temp 98.4 F 02/25/21 09:00 Pulse 98 02/25/21 09:00 Resp 18 02/25/21 09:00 BP 111/58 L 02/25/21 09:00 Pulse Ox 89 L 02/25/21 09:00 Weight - Most Recent: 180 lb 6.4 oz I&O - Last 24 Hours: Intake & Output 02/24/21 02/25/21 02/25/21 22:59 06:59 14:59 Intake Total 10 Balance 10 Lab Results Last 24 Hours: Laboratory Results - last 24 hr 02/25/21 02/25/21 Range/Units 05:40 05:40 WBC 3.76 L (4.0-11.0) K/uL RBC 3.44 L (4.50-5.90) M/uL Hgb 11.4 L (13.0-17.0) g/dL Hct 34.6 L (38.0-50.0) % MCV 100.6 H (80.0-98.0) fL MCH 33.1 H (27.0-32.0) pg MCHC 32.9 (31.0-37.0) g/dL RDW Std Deviation 55.4 (28.0-62.0) fl RDW Coeff of Mat 15 (11.0-15.0) % Plt Count 136 L (150-400) K/uL MPV 10.60 (7.40-12.00) fL Neut % (Auto) 58.3 (48.0-80.0) % Lymph % (Auto) 19.9 (16.0-40.0) % [place] % (Auto) 21.0 H (0.0-15.0) % Eos % (Auto) 0.8 (0.0-7.0) % Baso % (Auto) 0.0 (0.0-1.5) % Neut # (Auto) 2.2 (1.4-5.7) K/uL Lymph # (Auto) 0.8 (0.6-2.4) K/uL [place] # (Auto) 0.8 (0.0-0.8) K/uL Eos # (Auto) 0.0 (0.0-0.7) K/uL Baso # (Auto) 0.0 (0.0-0.1) K/uL Nucleated RBC % 0.0 /100WBC Nucleated RBCs # 0 K/uL Sodium 139 (136-148) mmol/L Potassium 3.9 (3.5-5.1) mmol/L Chloride 102 (98-107) mmol/L Carbon Dioxide 29.3 (21.0-32.0) mmol/L BUN 15 (7.0-18.0) mg/dL Creatinine 1.0 (0.8-1.3) mg/dL Est Cr Clr Drug Dosing 57.93 mL/min Estimated GFR (MDRD) > 60.0 ml/min Glucose 131 H (74-106) mg/dL Calcium 8.4 L (8.5-10.1) mg/dL Total Bilirubin 0.7 (0.2-1.0) mg/dL AST 19 (15-37) IU/L ALT 20 (14-63) IU/L Alkaline Phosphatase 73 (46-116) U/L Total Protein 7.2 (6.4-8.2) g/dL Albumin 3.6 (3.4-5.0) g/dL Globulin 3.6 (2.6-4.0) g/dL Albumin/Globulin Ratio 1.0 (0.9-1.6) Aly Results Last 24 Hours: Microbiology 02/24/21 08:30 Aerobic Blood Culture - Preliminary Blood - Venous - Lab Draw NO GROWTH AFTER 1 DAY Anaerobic Blood Culture - Preliminary NO GROWTH AFTER 1 DAY 02/24/21 07:48 Aerobic Blood Culture - Preliminary Blood - Venous NO GROWTH AFTER 1 DAY Anaerobic Blood Culture - Preliminary NO GROWTH AFTER 1 DAY Med Orders - Current: Current Medications Albuterol/Ipratropium (Albuterol/Ipratropium 3.0-0.5 Mg/3 Ml Neb Soln) 3 ml NEB Q4HRRT [facility] Last Admin: 02/25/21 09:24 Dose: 3 ml Documented by: Azithromycin 500 mg/ Sodium (Chloride) 250 mls @ 250 mls/hr IV DAILY [facility] Last Admin: 02/25/21 08:52 Dose: 250 mls/hr Documented by: Ceftriaxone Sodium/Dextrose 1 (gm/ Premix) 50 mls @ 100 mls/hr IV Q24H [facility] Pantoprazole Sodium 40 mg/ (Sodium Chloride) 10 mls @ 300 mls/hr IV Q12H [facility] Last Admin: 02/25/21 08:43 Dose: 300 mls/hr Documented by: Polyethylene Glycol (Polyethylene Glycol 3350 Powder 17 Gm Packet) 119 gm PO ONETIME ONE Stop: 02/25/21 12:01 Polyethylene Glycol (Polyethylene Glycol 3350 Powder 17 Gm Packet) 119 gm PO ONETIME ONE Stop: 02/25/21 16:01 Sodium Chloride (Sodium Chloride 0.9% 10 Ml Syringe) 10 ml FLUSH ASDIRECTED PRN PRN Reason: Keep Vein Open Last Admin: 02/24/21 08:04 Dose: 10 ml Documented by: Sodium Chloride (Sodium Chloride 0.9% 2.5 Ml Syringe) 2.5 ml FLUSH ASDIRECTED PRN PRN Reason: Keep Vein Open Last Admin: 02/24/21 08:04 Dose: 2.5 ml Documented by: Discontinued Medications Albuterol/Ipratropium (Albuterol/Ipratropium 3.0-0.5 Mg/3 Ml Neb Soln) 3 ml NEB ONETIME ONE Stop: 02/24/21 07:59 Last Admin: 02/24/21 08:05 Dose: 3 ml Documented by: Bisacodyl (Bisacodyl 5 Mg Tab) 20 mg PO ONETIME ONE Stop: 02/25/21 10:01 Last Admin: 02/25/21 09:57 Dose: 20 mg Documented by: Pantoprazole Sodium 80 mg/ (Sodium Chloride) 10 mls @ 300 mls/hr IV NOW ONE Stop: 02/24/21 13:05 Last Admin: 02/24/21 13:16 Dose: 300 mls/hr Documented by: Ceftriaxone Sodium/Dextrose 1 (gm/ Premix) 50 mls @ 100 mls/hr IV ONETIME ONE Stop: 02/24/21 13:33 Last Admin: 02/24/21 13:16 Dose: 100 mls/hr Documented by: Levofloxacin/Dextrose 750 mg/ (Premix) 150 mls @ 100 mls/hr IV Q24H [facility] Last Admin: 02/24/21 18:27 Dose: Not Given Documented by: Pantoprazole Sodium 40 mg/ (Sodium Chloride) 10 mls @ 300 mls/hr IV DAILY [facility] Iopamidol (Iopamidol 755 Mg/Ml 500 Ml Multipack Bottle) 100 ml IVPUSH ONETIME STA Stop: 02/24/21 15:54 Last Admin: 02/24/21 15:57 Dose: 100 ml Documented by: - Exam General: Alert, Oriented, Cooperative HEENT: Mucous Membr. Moist/[place] Neck: Trachea Midline Lungs: Clear to Auscultation, Normal Respiratory Effort Cardiovascular: Regular Rate, Regular Rhythm GI/Abdominal Exam: Normal Bowel Sounds, Soft, Non-Tender - Patient Data Lab Results Last 24 hrs: Laboratory Results - last 24 hr 02/25/21 02/25/21 Range/Units 05:40 05:40 WBC 3.76 L (4.0-11.0) K/uL RBC 3.44 L (4.50-5.90) M/uL Hgb 11.4 L (13.0-17.0) g/dL Hct 34.6 L (38.0-50.0) % MCV 100.6 H (80.0-98.0) fL MCH 33.1 H (27.0-32.0) pg MCHC 32.9 (31.0-37.0) g/dL RDW Std Deviation 55.4 (28.0-62.0) fl RDW Coeff of Mat 15 (11.0-15.0) % Plt Count 136 L (150-400) K/uL MPV 10.60 (7.40-12.00) fL Neut % (Auto) 58.3 (48.0-80.0) % Lymph % (Auto) 19.9 (16.0-40.0) % [place] % (Auto) 21.0 H (0.0-15.0) % Eos % (Auto) 0.8 (0.0-7.0) % Baso % (Auto) 0.0 (0.0-1.5) % Neut # (Auto) 2.2 (1.4-5.7) K/uL Lymph # (Auto) 0.8 (0.6-2.4) K/uL [place] # (Auto) 0.8 (0.0-0.8) K/uL Eos # (Auto) 0.0 (0.0-0.7) K/uL Baso # (Auto) 0.0 (0.0-0.1) K/uL Nucleated RBC % 0.0 /100WBC Nucleated RBCs # 0 K/uL Sodium 139 (136-148) mmol/L Potassium 3.9 (3.5-5.1) mmol/L Chloride 102 (98-107) mmol/L Carbon Dioxide 29.3 (21.0-32.0) mmol/L BUN 15 (7.0-18.0) mg/dL Creatinine 1.0 (0.8-1.3) mg/dL Est Cr Clr Drug Dosing 57.93 mL/min Estimated GFR (MDRD) > 60.0 ml/min Glucose 131 H (74-106) mg/dL Calcium 8.4 L (8.5-10.1) mg/dL Total Bilirubin 0.7 (0.2-1.0) mg/dL AST 19 (15-37) IU/L ALT 20 (14-63) IU/L Alkaline Phosphatase 73 (46-116) U/L Total Protein 7.2 (6.4-8.2) g/dL Albumin 3.6 (3.4-5.0) g/dL Globulin 3.6 (2.6-4.0) g/dL Albumin/Globulin Ratio 1.0 (0.9-1.6) Result Diagrams: 02/25/21 05:40 02/25/21 05:40 Aly Results Last 24 hrs: Microbiology 02/24/21 08:30 Aerobic Blood Culture - Preliminary Blood - Venous - Lab Draw NO GROWTH AFTER 1 DAY Anaerobic Blood Culture - Preliminary NO GROWTH AFTER 1 DAY 02/24/21 07:48 Aerobic Blood Culture - Preliminary Blood - Venous NO GROWTH AFTER 1 DAY Anaerobic Blood Culture - Preliminary NO GROWTH AFTER 1 DAY Sepsis Event Note - Evaluation Sepsis Screening Result: No Definite Risk - Focused Exam Vital Signs: Vital Signs Temp Pulse Resp BP BP Pulse Ox 02/25/21 09:00 98.4 F 98 18 111/58 L 89 L 02/25/21 03:50 98.6 F 95 23 H 113/72 93 L 02/25/21 00:46 98.2 F 104 H 21 H 120/75 93 L - Problem List & Annotations (1) COPD exacerbation SNOMED Code(s): 876958455 Code(s): J44.1 - CHRONIC OBSTRUCTIVE PULMONARY DISEASE W (ACUTE) EXACERBATION Status: Acute Current Visit: Yes (2) GI bleed SNOMED Code(s): 90963122 Code(s): K92.2 - GASTROINTESTINAL HEMORRHAGE, UNSPECIFIED Status: Acute Current Visit: Yes - Problem List Review Problem List Initiated/Reviewed/Updated: Yes - My Orders Last 24 Hours: My Active Orders 02/24/21 14:58 RT Aerosol Therapy [RC] ASDIRECTED 02/24/21 14:59 Antiembolic Devices [RC] PER UNIT ROUTINE SCD [Sequential Compression Device] [OM.PC] Routine 02/24/21 15:31 Consult to Physician [CONS] Routine 02/24/21 Dinner Regular Diet [DIET] 02/24/21 16:30 Azithromycin [Zithromax] 500 mg Sodium Chloride 0.9% [Normal Saline AdvBag] 250 ml IV DAILY 02/24/21 18:00 Albuterol/Ipratropium [DuoNeb 3.0-0.5 MG/3 ML] 3 ml NEB Q4HRRT 02/24/21 21:00 Pantoprazole [ProTONIX IV] 40 mg Sodium Chloride 0.9% [Normal Saline] 10 ml IV Q12H 02/25/21 Lunch Clear Liquid Diet [DIET] 02/25/21 12:00 polyethylene glycoL 3350 [MiraLAX] 119 gm PO ONETIME ONE 02/25/21 13:00 cefTRIAXone [Rocephin in Dextrose,Iso-Osm 1 GM/50 ML] 1 gm Premix Bag 1 bag IV Q24H 02/25/21 16:00 polyethylene glycoL 3350 [MiraLAX] 119 gm PO ONETIME ONE 02/26/21 05:11 CBC WITH AUTO DIFF [HEME] AM CMP [COMPREHENSIVE METABOLIC PN,CMP] [CHEM] AM 02/26/21 Dinner NPO After Midnight [Nothing per Oral After Midnight Diet] [DIET] 02/27/21 05:11 CBC WITH AUTO DIFF [HEME] AM CMP [COMPREHENSIVE METABOLIC PN,CMP] [CHEM] AM 02/28/21 05:11 CBC WITH AUTO DIFF [HEME] AM CMP [COMPREHENSIVE METABOLIC PN,CMP] [CHEM] AM - Plan Plan:: 1. COPD exacerbation -Continue with Rocephin 1 g per IV route every 24 hours as well as azithromycin 500 mg per IV route every 24 hours. -For shortness of breath, the patient will be treated with duo nebulizer treatments every 4 hours scheduled. -Supply oxygen as needed. 2. GI bleed -Dr. Buchanan from surgery has seen this patient and has started a bowel prep on him today including MiraLAX, Gatorade, Dulcolax, and n.p.o. at midnight. Both an EGD and colonoscopy will commence tomorrow.
[2021-02-25] MEDS ORDERED: Polyethylene Glycol 3350 Powder 17 GM Packet PO ONE ×2 (12:00→16:00)
[2021-02-25] MEDS ORDERED: cefTRIAXone 1 GM in Premix Bag 1 BAG IV SCH (13:00)
[2021-02-25] MEDS ORDERED: Albuterol/Ipratropium 3.0-0.5 MG/3 ML Neb Soln NEB PRN (14:00)
--- NOTE | 2021-02-25 16:48 | PCM.CONSN ---
- General Info Date of Service: 02/25/21 Functional Status: Reports: Tolerating Diet, Ambulating, Other (Started bowel prep. Noted melena. Otherwise feeling well) - Review of Systems General: Reports: No Symptoms HEENT: Reports: No Symptoms Pulmonary: Reports: No Symptoms Cardiovascular: Reports: No Symptoms Gastrointestinal: Reports: Melena Musculoskeletal: Reports: No Symptoms - Patient Data Vitals - Most Recent: Last Vital Signs Temp 36.8 C 02/25/21 13:00 Pulse 90 02/25/21 13:00 Resp 16 02/25/21 13:00 BP 112/71 02/25/21 13:00 Pulse Ox 92 L 02/25/21 13:00 Weight - Most Recent: 81.828 kg Lab Results Last 24 Hours: Laboratory Results - last 24 hr 02/25/21 02/25/21 Range/Units 05:40 05:40 WBC 3.76 L (4.0-11.0) K/uL RBC 3.44 L (4.50-5.90) M/uL Hgb 11.4 L (13.0-17.0) g/dL Hct 34.6 L (38.0-50.0) % MCV 100.6 H (80.0-98.0) fL MCH 33.1 H (27.0-32.0) pg MCHC 32.9 (31.0-37.0) g/dL RDW Std Deviation 55.4 (28.0-62.0) fl RDW Coeff of Mat 15 (11.0-15.0) % Plt Count 136 L (150-400) K/uL MPV 10.60 (7.40-12.00) fL Neut % (Auto) 58.3 (48.0-80.0) % Lymph % (Auto) 19.9 (16.0-40.0) % [place] % (Auto) 21.0 H (0.0-15.0) % Eos % (Auto) 0.8 (0.0-7.0) % Baso % (Auto) 0.0 (0.0-1.5) % Neut # (Auto) 2.2 (1.4-5.7) K/uL Lymph # (Auto) 0.8 (0.6-2.4) K/uL [place] # (Auto) 0.8 (0.0-0.8) K/uL Eos # (Auto) 0.0 (0.0-0.7) K/uL Baso # (Auto) 0.0 (0.0-0.1) K/uL Nucleated RBC % 0.0 /100WBC Nucleated RBCs # 0 K/uL Sodium 139 (136-148) mmol/L Potassium 3.9 (3.5-5.1) mmol/L Chloride 102 (98-107) mmol/L Carbon Dioxide 29.3 (21.0-32.0) mmol/L BUN 15 (7.0-18.0) mg/dL Creatinine 1.0 (0.8-1.3) mg/dL Est Cr Clr Drug Dosing 57.93 mL/min Estimated GFR (MDRD) > 60.0 ml/min Glucose 131 H (74-106) mg/dL Calcium 8.4 L (8.5-10.1) mg/dL Total Bilirubin 0.7 (0.2-1.0) mg/dL AST 19 (15-37) IU/L ALT 20 (14-63) IU/L Alkaline Phosphatase 73 (46-116) U/L Total Protein 7.2 (6.4-8.2) g/dL Albumin 3.6 (3.4-5.0) g/dL Globulin 3.6 (2.6-4.0) g/dL Albumin/Globulin Ratio 1.0 (0.9-1.6) Aly Results Last 24 Hours: Microbiology 02/24/21 08:30 Aerobic Blood Culture - Preliminary Blood - Venous - Lab Draw NO GROWTH AFTER 1 DAY Anaerobic Blood Culture - Preliminary NO GROWTH AFTER 1 DAY 02/24/21 07:48 Aerobic Blood Culture - Preliminary Blood - Venous NO GROWTH AFTER 1 DAY Anaerobic Blood Culture - Preliminary NO GROWTH AFTER 1 DAY Med Orders - Current: Current Medications Albuterol/Ipratropium (Albuterol/Ipratropium 3.0-0.5 Mg/3 Ml Neb Soln) 3 ml NEB Q4HRRT PRN PRN Reason: Dyspnea Azithromycin 500 mg/ Sodium (Chloride) 250 mls @ 250 mls/hr IV DAILY [facility] Last Admin: 02/25/21 08:52 Dose: 250 mls/hr Documented by: Ceftriaxone Sodium/Dextrose 1 (gm/ Premix) 50 mls @ 100 mls/hr IV Q24H [facility] Last Admin: 02/25/21 13:42 Dose: 100 mls/hr Documented by: Pantoprazole Sodium 40 mg/ (Sodium Chloride) 10 mls @ 300 mls/hr IV Q12H [facility] Last Admin: 02/25/21 08:43 Dose: 300 mls/hr Documented by: Sodium Chloride (Sodium Chloride 0.9% 10 Ml Syringe) 10 ml FLUSH ASDIRECTED PRN PRN Reason: Keep Vein Open Last Admin: 02/24/21 08:04 Dose: 10 ml Documented by: Sodium Chloride (Sodium Chloride 0.9% 2.5 Ml Syringe) 2.5 ml FLUSH ASDIRECTED PRN PRN Reason: Keep Vein Open Last Admin: 02/24/21 08:04 Dose: 2.5 ml Documented by: Discontinued Medications Albuterol/Ipratropium (Albuterol/Ipratropium 3.0-0.5 Mg/3 Ml Neb Soln) 3 ml NEB ONETIME ONE Stop: 02/24/21 07:59 Last Admin: 02/24/21 08:05 Dose: 3 ml Documented by: Albuterol/Ipratropium (Albuterol/Ipratropium 3.0-0.5 Mg/3 Ml Neb Soln) 3 ml NEB Q4HRRT [facility] Last Admin: 02/25/21 09:24 Dose: 3 ml Documented by: Bisacodyl (Bisacodyl 5 Mg Tab) 20 mg PO ONETIME ONE Stop: 02/25/21 10:01 Last Admin: 02/25/21 09:57 Dose: 20 mg Documented by: Pantoprazole Sodium 80 mg/ (Sodium Chloride) 10 mls @ 300 mls/hr IV NOW ONE Stop: 02/24/21 13:05 Last Admin: 02/24/21 13:16 Dose: 300 mls/hr Documented by: Ceftriaxone Sodium/Dextrose 1 (gm/ Premix) 50 mls @ 100 mls/hr IV ONETIME ONE Stop: 02/24/21 13:33 Last Admin: 02/24/21 13:16 Dose: 100 mls/hr Documented by: Levofloxacin/Dextrose 750 mg/ (Premix) 150 mls @ 100 mls/hr IV Q24H [facility] Last Admin: 02/24/21 18:27 Dose: Not Given Documented by: Pantoprazole Sodium 40 mg/ (Sodium Chloride) 10 mls @ 300 mls/hr IV DAILY [facility] Iopamidol (Iopamidol 755 Mg/Ml 500 Ml Multipack Bottle) 100 ml IVPUSH ONETIME STA Stop: 02/24/21 15:54 Last Admin: 02/24/21 15:57 Dose: 100 ml Documented by: Polyethylene Glycol (Polyethylene Glycol 3350 Powder 17 Gm Packet) 119 gm PO ONETIME ONE Stop: 02/25/21 12:01 Last Admin: 02/25/21 12:02 Dose: 119 gm Documented by: Polyethylene Glycol (Polyethylene Glycol 3350 Powder 17 Gm Packet) 119 gm PO ONETIME ONE Stop: 02/25/21 16:01 Last Admin: 02/25/21 16:12 Dose: 119 gm Documented by: - Exam General: Alert, Oriented HEENT: Pupils Equal, Pupils Reactive Lungs: Normal Respiratory Effort Cardiovascular: Regular Rate GI/Abdominal Exam: Soft, Non-Tender, No Distention, No Mass Sepsis Event Note - Evaluation Sepsis Screening Result: No Definite Risk - Focused Exam Vital Signs: Vital Signs Temp Pulse Resp BP Pulse Ox 02/25/21 13:00 36.8 C 90 16 112/71 92 L 02/25/21 09:00 36.9 C 98 18 111/58 L 89 L Consult PN Assessment/Plan Procedures: Procedures ASSAY OF AMYLASE (06/10/19) ASSAY OF BLOOD/URIC ACID (03/08/17) ASSAY OF LACTIC ACID (07/12/19) ASSAY OF LIPASE (06/10/19) ASSAY OF MAGNESIUM (06/21/19) ASSAY OF NATRIURETIC PEPTIDE (03/01/17) ASSAY OF TROPONIN QUANT (06/10/19) BLOOD CULTURE FOR BACTERIA (07/12/19) BLOOD GASES ANY COMBINATION (07/12/19) BLOOD TRANSFUSION SERVICE (07/12/19) BLOOD TYPING SEROLOGIC ABO (07/12/19) BLOOD TYPING SEROLOGIC RH(D) (07/12/19) C-REACTIVE PROTEIN (03/15/17) CHEMO IV INFUS EACH ADDL SEQ (06/21/19) CHEMO IV INFUSION 1 HR (06/21/19) CHEST X-RAY 2VW FRONTAL&LATL (01/22/16) COMPATIBILITY TEST ANTIGLOB (07/12/19) COMPATIBILITY TEST INCUBATE (07/12/19) COMPATIBILITY TEST SPIN (07/12/19) COMPLETE CBC W/AUTO DIFF WBC (07/12/19) COMPREHEN METABOLIC PANEL (07/12/19) CT ABD & PELV W/CONTRAST (07/12/19) CT ABD & PELVIS W/O CONTRAST (10/25/18) CYSTOSCOPY AND TREATMENT (11/28/18) CYSTOSCOPY AND TREATMENT (11/24/18) DRAW BLOOD OFF VENOUS DEVICE (06/21/19) ELECTROCARDIOGRAM TRACING (06/10/19) EMERGENCY DEPT VISIT (07/12/19) EMERGENCY DEPT VISIT (06/10/19) EMERGENCY DEPT VISIT (06/06/19) EMERGENCY DEPT VISIT (06/04/19) EMERGENCY DEPT VISIT (11/27/18) EVALUATION OF WHEEZING (12/17/14) GLYCOSYLATED HEMOGLOBIN TEST (03/08/17) HEMATOCRIT (11/28/18) HEMOGLOBIN (11/28/18) HYDRATE IV INFUSION ADD-ON (07/12/19) IMMUNIZATION ADMIN EACH ADD (12/20/14) INSERT TEMP BLADDER CATH (11/27/18) IRRIGATION OF BLADDER (06/04/19) METABOLIC PANEL TOTAL CA (06/04/19) MICROBE SUSCEPTIBLE ALY (01/02/19) OFFICE O/P EST LOW 20-29 MIN (07/03/15) OFFICE O/P EST MOD 30-39 MIN (03/08/17) PPSV23 VACC 2 YRS+ SUBQ/IM (12/20/14) PROTHROMBIN TIME (11/25/18) RBC ANTIBODY SCREEN (07/12/19) ROUTINE VENIPUNCTURE (07/12/19) TDAP VACCINE 7 YRS/> IM (12/20/14) THER/PROPH/DIAG INJ IV PUSH (07/12/19) THER/PROPH/DIAG IV INF ADDON (06/21/19) THER/PROPH/DIAG IV INF INIT (06/21/19) TISSUE EXAM BY PATHOLOGIST (11/24/18) TISSUE EXAM BY PATHOLOGIST (11/24/18) TX/PRO/DX INJ NEW DRUG ADDON (06/21/19) TX/PROPH/DG ADDL SEQ IV INF (06/21/19) URINALYSIS AUTO W/SCOPE (06/04/19) URINE BACTERIA CULTURE (01/02/19) URINE CULTURE/COLONY COUNT (02/03/19) US URINE CAPACITY MEASURE (06/06/19) X-RAY EXAM CHEST 2 VIEWS (06/10/19) (1) GI bleed SNOMED Code(s): 80858152 Code(s): K92.2 - GASTROINTESTINAL HEMORRHAGE, UNSPECIFIED Current Visit: Y es Problem List Initiated/Reviewed/Updated: Yes Plan: The patient and I discussed the EGD and colonoscopy procedure. I explained the expected course as well as the risks including bleeding infection or damage to surrounding structures including perforation. He verbalized understanding and wishes to proceed. Patient will be made NPO at midnight.
[2021-02-25] MEDS: Sodium Chloride 0.9% 1,000 ML IV SCH (19:37)
[2021-02-26] MEDS: Sodium Chloride 0.9% 1,000 ML IV SCH (04:29)
[2021-02-26] MEDS ORDERED: Propofol 200 MG/20 ML SDV ONE ×3 (06:54→06:57)
[2021-02-26] MEDS ORDERED: fentaNYL 100 MCG/2 ML SDV ONE (06:54)
[2021-02-26] MEDS ORDERED: Lidocaine 2% 5 ML SDV ONE (06:54)
[2021-02-26] MEDS ORDERED: Ketamine 500 mg/10 ML MDV ONE (07:07)
--- NOTE | 2021-02-26 07:13 | PCM.PREANE ---
Preanesthetic Assessment - Anesthesia/Transfusion/Family Hx Anesthesia History: Prior Anesthesia Without Reaction Transfusion History: Prior Transfusion Reaction Type of Transfusion Reactions: Reports: Hemolytic Reaction Intubation History: Unknown - Review of Systems General: No Symptoms Pulmonary: No Symptoms Cardiovascular: No Symptoms Gastrointestinal: No Symptoms Neurological: No Symptoms Other: Reports: None - Physical Assessment NPO Status Date: 02/26/21 NPO Status Time: 00:00 Vital Signs: Last Vital Signs Temp 98.6 F 02/26/21 04:00 Pulse 86 02/26/21 04:00 Resp 18 02/26/21 04:00 BP 132/62 02/26/21 04:00 Pulse Ox 90 L 02/26/21 04:00 Height: 5 ft 9 in Weight: 180 lb 6.4 oz ASA Class: 3 Mental Status: Alert & Oriented x3 Airway Class: Mallampati = 2 Dentition: Reports: Dentures Thyro-Mental Finger Breadths: 3 Mouth Opening Finger Breadths: 2 ROM/Head Extension: Full Lungs: Clear to Auscultation, Normal Respiratory Effort Cardiovascular: Regular Rate, Regular Rhythm - Lab Values: Laboratory Last Values WBC 3.76 K/uL (4.0-11.0) L 02/25/21 05:40 RBC 3.44 M/uL (4.50-5.90) L 02/25/21 05:40 Hgb 11.4 g/dL (13.0-17.0) L 02/25/21 05:40 Hct 34.6 % (38.0-50.0) L 02/25/21 05:40 MCV 100.6 fL (80.0-98.0) H 02/25/21 05:40 MCH 33.1 pg (27.0-32.0) H 02/25/21 05:40 MCHC 32.9 g/dL (31.0-37.0) 02/25/21 05:40 RDW Std Deviation 55.4 fl (28.0-62.0) 02/25/21 05:40 RDW Coeff of Mat 15 % (11.0-15.0) 02/25/21 05:40 Plt Count 136 K/uL (150-400) L 02/25/21 05:40 MPV 10.60 fL (7.40-12.00) 02/25/21 05:40 Neut % (Auto) 58.3 % (48.0-80.0) 02/25/21 05:40 Lymph % (Auto) 19.9 % (16.0-40.0) 02/25/21 05:40 [place] % (Auto) 21.0 % (0.0-15.0) H 02/25/21 05:40 Eos % (Auto) 0.8 % (0.0-7.0) 02/25/21 05:40 Baso % (Auto) 0.0 % (0.0-1.5) 02/25/21 05:40 Neut # (Auto) 2.2 K/uL (1.4-5.7) 02/25/21 05:40 Lymph # (Auto) 0.8 K/uL (0.6-2.4) 02/25/21 05:40 [place] # (Auto) 0.8 K/uL (0.0-0.8) 02/25/21 05:40 Eos # (Auto) 0.0 K/uL (0.0-0.7) 02/25/21 05:40 Baso # (Auto) 0.0 K/uL (0.0-0.1) 02/25/21 05:40 Add Manual Diff YES 02/24/21 07:45 Neutrophils % (Manual) 39 % (48.0-80.0) L 02/24/21 07:45 Band Neutrophils % 8 % 02/24/21 07:45 Lymphocytes % (Manual) 46 % (16.0-40.0) H 02/24/21 07:45 Monocytes % (Manual) 6 % (0.0-15.0) 02/24/21 07:45 Eosinophils % (Manual) 1 % (0.0-7.0) 02/24/21 07:45 Nucleated RBC % 0.0 /100WBC 02/25/21 05:40 Absolute Seg Neuts 1.7 (1.4-5.7) 02/24/21 07:45 Band Neutrophils # 0.3 02/24/21 07:45 Lymphocytes # (Manual) 2.0 (0.6-2.4) 02/24/21 07:45 Monocytes # (Manual) 0.3 (0.0-0.8) 02/24/21 07:45 Eosinophils # (Manual) 0.0 (0.0-0.7) 02/24/21 07:45 Nucleated RBCs # 0 K/uL 02/25/21 05:40 Reactive Lymphocytes FEW 02/24/21 07:45 INR 1.06 02/24/21 07:45 D-Dimer, Quantitative 0.60 mg/L FEU (0.0-0.50) H 02/24/21 07:45 Sodium 139 mmol/L (136-148) 02/25/21 05:40 Potassium 3.9 mmol/L (3.5-5.1) 02/25/21 05:40 Chloride 102 mmol/L (98-107) 02/25/21 05:40 Carbon Dioxide 29.3 mmol/L (21.0-32.0) 02/25/21 05:40 BUN 15 mg/dL (7.0-18.0) 02/25/21 05:40 Creatinine 1.0 mg/dL (0.8-1.3) 02/25/21 05:40 Est Cr Clr Drug Dosing 57.93 mL/min 02/25/21 05:40 Estimated GFR (MDRD) > 60.0 ml/min 02/25/21 05:40 Glucose 131 mg/dL (74-106) H 02/25/21 05:40 Lactic Acid 1.7 mmol/L (0.4-2.0) 02/24/21 07:45 Calcium 8.4 mg/dL (8.5-10.1) L 02/25/21 05:40 Total Bilirubin 0.7 mg/dL (0.2-1.0) 02/25/21 05:40 AST 19 IU/L (15-37) 02/25/21 05:40 ALT 20 IU/L (14-63) 02/25/21 05:40 Alkaline Phosphatase 73 U/L (46-116) 02/25/21 05:40 Troponin I < 0.050 ng/mL (0.000-0.056) 02/24/21 07:45 B-Natriuretic Peptide 20 PG/ML (<100) 02/24/21 07:45 Total Protein 7.2 g/dL (6.4-8.2) 02/25/21 05:40 Albumin 3.6 g/dL (3.4-5.0) 02/25/21 05:40 Globulin 3.6 g/dL (2.6-4.0) 02/25/21 05:40 Albumin/Globulin Ratio 1.0 (0.9-1.6) 02/25/21 05:40 Lipase 91 U/L (73-393) 02/24/21 07:45 Urine Color YELLOW 02/24/21 10:00 Urine Appearance CLEAR 02/24/21 10:00 Urine pH 7.0 (5.0-8.0) 02/24/21 10:00 Ur Specific [place] 1.015 (1.001-1.035) 02/24/21 10:00 Urine Protein NEGATIVE mg/dL (NEGATIVE) 02/24/21 10:00 Urine Glucose (UA) NEGATIVE mg/dL (NEGATIVE) 02/24/21 10:00 Urine Ketones NEGATIVE mg/dL (NEGATIVE) 02/24/21 10:00 Urine Occult Blood TRACE-INTACT (NEGATIVE) H 02/24/21 10:00 Urine Nitrite NEGATIVE (NEGATIVE) 02/24/21 10:00 Urine Bilirubin NEGATIVE (NEGATIVE) 02/24/21 10:00 Urine Urobilinogen 0.2 EU/dL (<2.0) 02/24/21 10:00 Ur Leukocyte Esterase NEGATIVE (NEGATIVE) 02/24/21 10:00 Urine RBC NONE SEEN (0-2/HPF) 02/24/21 10:00 Urine WBC 0-1 (0-5/HPF) 02/24/21 10:00 Ur Epithelial Cells RARE (NONE-FEW) 02/24/21 10:00 Urine Bacteria RARE (NEGATIVE) 02/24/21 10:00 Urine Mucus LIGHT (NONE-MOD) 02/24/21 10:00 SARS-CoV-2 RNA ([place]) NEGATIVE (NEGATIVE) 02/24/21 08:00 Blood Type O NEGATIVE 02/24/21 08:30 Antibody Screen NEGATIVE 02/24/21 08:30 - Allergies Allergies/Adverse Reactions: Allergies Allergy/AdvReac Type Severity Reaction Status Date / Time ciprofloxacin Allergy and Verified 02/24/21 07:59 elevated blood sugar Sulfa (Sulfonamide Allergy Cannot Verified 02/24/21 07:59 Antibiotics) Remember - Acknowledgements Anesthesia Type Planned: General Anesthesia Pt an Appropriate Candidate for the Planned Anesthesia: Yes Alternatives and Risks of Anesthesia Discussed w Pt/Guardian: Yes Pt/Guardian Understands and Agrees with Anesthesia Plan: Yes PreAnesthesia Questionnaire HEENT History: Reports: Other (See Below) Other HEENT History: wears glasses, has upper and lower dentures Cardiovascular History: Reports: None Respiratory History: Reports: COPD, SOB Gastrointestinal History: Reports: None Genitourinary History: Reports: Other (See Below) Other Genitourinary History: 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 Last Wednesday, velasco cath removed. Just returned from [facility] today at 4 pm Musculoskeletal History: Reports: Gout Neurological History: Reports: None Psychiatric History: Reports: None Endocrine/Metabolic History: Reports: None Other Endocrine/Metabolic History: Not on Diabetic medications. Checks blood sugar about 3 or 4 times a week. Hematologic History: Reports: None Immunologic History: Reports: None Oncologic (Cancer) History: Reports: Bladder Other Oncologic History: Will get a gene cath and start chemo in [place]. Not sure when. Dermatologic History: Reports: None - Infectious Disease History Infectious Disease History: Reports: Chicken Pox, Measles, Mumps - Past Surgical History Head Surgeries/Procedures: Reports: None HEENT Surgical History: Reports: Tonsillectomy Cardiovascular Surgical History: Reports: None Respiratory Surgical History: Reports: None GI Surgical History: Reports: None Male Surgical History: Reports: Other (See Below) Other Male Surgeries/Procedures: Prostate surgery Endocrine Surgical History: Reports: None Neurological Surgical History: Reports: None Musculoskeletal Surgical History: Reports: None Oncologic Surgical History: Reports: Other (See Below) Other Oncologic Surgeries/Procedures: Bladder tumor removed May 15. Dermatological Surgical History: Reports: None - SUBSTANCE USE Tobacco Use Status *Q: Former Tobacco User Second Hand Smoke Exposure: No Recreational Drug Use History: No - HOME MEDS Home Medications: Home Meds Albuterol [Ventolin HFA] 2 puff INH Q4H PRN 11/22/18 [History] Salmeterol Xinafoate [Serevent Diskus] 1 puff INH BID 11/22/18 [History] allopurinoL [Zyloprim] 100 mg PO DAILY PRN 11/22/18 [History] Tiotropium [Spiriva HandiHaler] 2 puff INH DAILY 07/12/19 [History] - CURRENT (IN HOUSE) MEDS Current Meds: Current Medications Albuterol/Ipratropium (Albuterol/Ipratropium 3.0-0.5 Mg/3 Ml Neb Soln) 3 ml NEB Q4HRRT PRN PRN Reason: Dyspnea Azithromycin 500 mg/ Sodium (Chloride) 250 mls @ 250 mls/hr IV DAILY [facility] Last Admin: 02/25/21 08:52 Dose: 250 mls/hr Documented by: Ceftriaxone Sodium/Dextrose 1 (gm/ Premix) 50 mls @ 100 mls/hr IV Q24H [facility] Last Admin: 02/25/21 13:42 Dose: 100 mls/hr Documented by: Pantoprazole Sodium 40 mg/ (Sodium Chloride) 10 mls @ 300 mls/hr IV Q12H [facility] Last Admin: 02/25/21 21:21 Dose: 300 mls/hr Documented by: Sodium Chloride (Normal Saline) 1,000 mls @ 100 mls/hr IV ASDIRECTED [facility] Last Admin: 02/26/21 04:29 Dose: 100 mls/hr Documented by: Sodium Chloride (Sodium Chloride 0.9% 10 Ml Syringe) 10 ml FLUSH ASDIRECTED PRN PRN Reason: Keep Vein Open Last Admin: 02/24/21 08:04 Dose: 10 ml Documented by: Sodium Chloride (Sodium Chloride 0.9% 2.5 Ml Syringe) 2.5 ml FLUSH ASDIRECTED PRN PRN Reason: Keep Vein Open Last Admin: 02/24/21 08:04 Dose: 2.5 ml Documented by: Discontinued Medications Albuterol/Ipratropium (Albuterol/Ipratropium 3.0-0.5 Mg/3 Ml Neb Soln) 3 ml NEB ONETIME ONE Stop: 02/24/21 07:59 Last Admin: 02/24/21 08:05 Dose: 3 ml Documented by: Albuterol/Ipratropium (Albuterol/Ipratropium 3.0-0.5 Mg/3 Ml Neb Soln) 3 ml NEB Q4HRRT [facility] Last Admin: 02/25/21 09:24 Dose: 3 ml Documented by: Bisacodyl (Bisacodyl 5 Mg Tab) 20 mg PO ONETIME ONE Stop: 02/25/21 10:01 Last Admin: 02/25/21 09:57 Dose: 20 mg Documented by: Fentanyl (Fentanyl 100 Mcg/2 Ml Sdv) Confirm Administered Dose 100 mcg .ROUTE .STK-MED ONE Stop: 02/26/21 06:55 Pantoprazole Sodium 80 mg/ (Sodium Chloride) 10 mls @ 300 mls/hr IV NOW ONE Stop: 02/24/21 13:05 Last Admin: 02/24/21 13:16 Dose: 300 mls/hr Documented by: Ceftriaxone Sodium/Dextrose 1 (gm/ Premix) 50 mls @ 100 mls/hr IV ONETIME ONE Stop: 02/24/21 13:33 Last Admin: 02/24/21 13:16 Dose: 100 mls/hr Documented by: Levofloxacin/Dextrose 750 mg/ (Premix) 150 mls @ 100 mls/hr IV Q24H [facility] Last Admin: 02/24/21 18:27 Dose: Not Given Documented by: Pantoprazole Sodium 40 mg/ (Sodium Chloride) 10 mls @ 300 mls/hr IV DAILY [facility] Iopamidol (Iopamidol 755 Mg/Ml 500 Ml Multipack Bottle) 100 ml IVPUSH ONETIME STA Stop: 02/24/21 15:54 Last Admin: 02/24/21 15:57 Dose: 100 ml Documented by: Ketamine HCl (Ketamine 500 Mg/10 Ml Mdv) Confirm Administered Dose 500 mg .ROUTE .STK-MED ONE Stop: 02/26/21 07:08 Lidocaine (Lidocaine 2% 5 Ml Sdv) Confirm Administered Dose 5 ml .ROUTE .STK-MED ONE Stop: 02/26/21 06:55 Polyethylene Glycol (Polyethylene Glycol 3350 Powder 17 Gm Packet) 119 gm PO ONETIME ONE Stop: 02/25/21 12:01 Last Admin: 02/25/21 12:02 Dose: 119 gm Documented by: Polyethylene Glycol (Polyethylene Glycol 3350 Powder 17 Gm Packet) 119 gm PO ONETIME ONE Stop: 02/25/21 16:01 Last Admin: 02/25/21 16:12 Dose: 119 gm Documented by: Propofol (Propofol 200 Mg/20 Ml Sdv) Confirm Administered Dose 200 mg .ROUTE .STK-MED ONE Stop: 02/26/21 06:55 Propofol (Propofol 200 Mg/20 Ml Sdv) Confirm Administered Dose 200 mg .ROUTE .STK-MED ONE Stop: 02/26/21 06:55 Propofol (Propofol 200 Mg/20 Ml Sdv) Confirm Administered Dose 200 mg .ROUTE .STK-MED ONE Stop: 02/26/21 06:58
[2021-02-26 07:43] LABS: BLOOD UREA NITROGEN,BUN 9 mg/dL (7.0-18.0); CARBON DIOXIDE,CO2 27.7 mmol/L (21.0-32.0); CHLORIDE,CL 102 mmol/L (98-107); GLUCOSE RANDOM 132 mg/dL (74-106); POTASSIUM,K 4.4 mmol/L (3.5-5.1); SODIUM,NA 138 mmol/L (136-148)
--- NOTE | 2021-02-26 08:08 | PCM48HPAN ---
Post Anesthesia Note - EVALUATION WITHIN 48HRS OF ANESTHETIC Vital Signs in Normal Range: Yes Patient Participated in Evaluation: Yes Respiratory Function Stable: Yes Airway Patent: Yes Cardiovascular Function Stable: Yes Hydration Status Stable: Yes Pain Control Satisfactory: Yes Nausea and Vomiting Control Satisfactory: Yes Mental Status Recovered: Yes Vital Signs: Last Vital Signs Temp 98.6 F 02/26/21 04:00 Pulse 86 02/26/21 04:00 Resp 18 02/26/21 04:00 BP 132/62 02/26/21 04:00 Pulse Ox 90 L 02/26/21 04:00
--- NOTE | 2021-02-26 08:08 | PCM.POSTAN ---
POST ANESTHESIA ASSESSMENT - MENTAL STATUS Mental Status: Alert, Oriented - VITAL SIGNS Vital Signs: Last Vital Signs Temp 98.6 F 02/26/21 04:00 Pulse 86 02/26/21 04:00 Resp 18 02/26/21 04:00 BP 132/62 02/26/21 04:00 Pulse Ox 90 L 02/26/21 04:00 - RESPIRATORY Respiratory Status: Respiratory Rate WNL, Airway Patent, O2 Saturation Stable - CARDIOVASCULAR CV Status: Pulse Rate WNL, Blood Pressure Stable - GASTROINTESTINAL GI Status: No Symptoms - POST OP HYDRATION Hydration Status: Adequate & Stable
[2021-02-26] MEDS: Pantoprazole 40 MG in Sodium Chloride 0.9% 10 ML IV SCH (08:52)
[2021-02-26] MEDS: Azithromycin 500 MG in Sodium Chloride 0.9% 250 ML IV SCH (09:01)
--- NOTE | 2021-02-26 09:34 | PCM.OPNOTE ---
- General Post-Op/Procedure Note Date of Surgery/Procedure: 02/26/21 Operative Procedure(s): Diagnostic EGD and colonoscopy Findings: Normal EGD, biopsies of antrum, body, fundus esophagus Diverticulosis of sigmoid colon, blood noted in cecum as well as a hepatic flexure/transverse colon avm. AVM showed now signs of acute bleeding. random biopsies of the cecum, ascending colon, transverse colon, descending colon and sigmoid colon Pre Op Diagnosis: GI bleed Post-Op Diagnosis: Diverticulosis, AVM Anesthesia Technique: [facility] [place] Surgeon: Maty Buchanan Condition: Fair Free Text/Narrative:: Intake & Output 02/25/21 02/26/21 02/26/21 22:59 06:59 14:59 Intake Total 2240 1260 700 Output Total 200 Balance 2040 1260 700
--- NOTE | 2021-02-26 09:39 | PCM.SN.2 ---
- Free Text/Narrative Note: Patient underwent a diagnostic EGD and colonoscopy this morning. The EGD was normal-appearing. During his colonoscopy was noted to have scattered diverticuli within the sigmoid colon. In the proximal transverse colon near the hepatic flexure the patient was noted to have an AVM. Photographs of this were taken. There was no stigmata of bleeding. When I reached the cecum I noted a small amount of bright red blood in the cecal cap. At first I thought I had caused some trauma to the area. I irrigated the area out and saw no evidence of trauma other than a small bruise. I attempted to intubate the terminal ileum but could not. After irrigating the area I saw no evidence of active bleeding. Random biopsies were taken throughout the colon. The patient's diet can be advanced to a regular diet and he can be discharged home. I visited with his . 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 He can follow-up in my clinic in 2 weeks to discuss GI referral for possible small bowel capsule endoscopy as well as a hemoglobin recheck. He appears stable and if he remains so can be discharged home. Will sign off at this time please call with any questions or concerns.
--- NOTE | 2021-02-26 11:08 | PCM.DCSUM1 ---
Discharge Summary - Hospital Course Free Text/Narrative:: The patient is a 80-year-old male, on day 3 of service, who has a significant past medical history of COPD with occasional home oxygen use of 1 L, bladder cancer post chemoradiation and in remission, and gout, who was admitted to the medical floor due to a COPD exacerbation and a GI bleed. Throughout the patient's hospital course he was treated with different antibiotics including IV ceftriaxone and IV azithromycin. He will be sent home on 4 days of oral formulations of cefdinir and azithromycin for antibiotic coverage for his COPD exacerbation. The patient was also having trouble breathing while ambulating throughout his hospital room and will be sent home on oxygen, more specifically 1 L to be used during activity. The patient was also complaining of bloody stools and was seen by surgeon Dr. Buchanan, who performed an EGD and colonoscopy. The EGD was normal and on colonoscopy a few AVMs were seen in the large colon. The patient is to follow-up with Dr. Buchanan on 03/05/2021, so he can be set up for an appointment with a GI specialist who can perform an endoscopic capsular study to evaluate the small colon. The patient is to follow-up with his PCP Dr. Cabral in 1 to 2 weeks time. The patient has been advised to return to the hospital if he has increasing shortness of breath, respiratory difficulty, chest pain, palpitations, or bloody stools. He is also been educated on being compliant with his medication and taking them at scheduled times. The patient is now stable and can be discharged home. - Discharge Data Discharge Date: 02/26/21 Discharge Disposition: Home, Self-Care 01 Condition: Fair - Referral to Home Health Primary Care Physician: Shakeel Cabral MD - Discharge Diagnosis/Problem(s) (1) COPD exacerbation SNOMED Code(s): 469431372 ICD Code: J44.1 - CHRONIC OBSTRUCTIVE PULMONARY DISEASE W (ACUTE) EXACERBATION Status: Acute Current Visit: Yes (2) GI bleed SNOMED Code(s): 60803854 ICD Code: K92.2 - GASTROINTESTINAL HEMORRHAGE, UNSPECIFIED Status: Acute Current Visit: Yes - Patient Summary/Data Operative Procedure(s) Performed: Diagnostic EGD and colonoscopy Consults: Consultations 02/24/21 15:31 Consult to Physician [CONS] Routine - Patient Instructions Diet: Regular Diet as Tolerated Activity: As Tolerated Showering/Bathing: May Shower Other/Special Instructions: -Return to the hospital if you experience respiratory difficulty, shortness of breath, chest pain, palpitations, bloody stools. -Be compliant with your medications and take them at scheduled times. -Follow-up with your PCP Dr. Cabral in 1 to 2 weeks time. -Follow-up with Dr. Buchanan, surgeon - Discharge Plan Prescriptions/Med Rec: Azithromycin 500 mg PO DAILY 4 Days #4 tablet Cefdinir [Omnicef] 300 mg PO BID 4 Days #8 cap Home Medications: Home Meds Albuterol [Ventolin HFA] 2 puff INH Q4H PRN 11/22/18 [History] Salmeterol Xinafoate [Serevent Diskus] 1 puff INH BID 11/22/18 [History] allopurinoL [Zyloprim] 100 mg PO DAILY PRN 11/22/18 [History] Tiotropium [Spiriva HandiHaler] 2 puff INH DAILY 07/12/19 [History] Azithromycin 500 mg PO DAILY 4 Days #4 tablet 02/26/21 [Rx] Cefdinir [Omnicef] 300 mg PO BID 4 Days #8 cap 02/26/21 [Rx] Oxygen Therapy Mode: Nasal Cannula Oxygen Flow Rate (L/min): 1 (Use 1L of oxygen with activity) Patient Handouts: Chronic Obstructive Pulmonary Disease Exacerbation, Ea sy-to-Read, Cefdinir Capsules, Chronic Obstructive Pulmonary Disease, Eeze-ti-Ycox, Azithromycin tablets, Gastrointestinal Bleeding, Kprg-gi-Zaak, Eating Plan for Chronic Obstructive Pulmonary Disease, COPD and Physical Activity Referrals: Maty Buchanan MD [Physician] - 03/05/21 10:00 am Shakeel Cabral MD [Primary Care Provider] - 03/07/21 3:30 pm - Discharge Summary/Plan Comment DC Time >30 min.: Yes Total # of Minutes for Discharge Time: 35 minutes - Review of Systems General: Denies: Fever, Fatigue HEENT: Denies: Headaches, Sore Throat Pulmonary: Denies: Shortness of Breath, Cough Cardiovascular: Denies: Chest Pain, Palpitations Gastrointestinal: Denies: Abdominal Pain, Constipation Genitourinary: Denies: Dysuria - Patient Data Vitals - Most Recent: Last Vital Signs Temp 98.8 F 02/26/21 07:56 Pulse 87 02/26/21 08:16 Resp 22 H 02/26/21 08:16 BP 112/71 02/26/21 08:16 Pulse Ox 96 02/26/21 08:16 Weight - Most Recent: 180 lb 6.4 oz I&O - Last 24 hours: Intake & Output 02/25/21 02/26/21 02/26/21 22:59 06:59 14:59 Intake Total 2240 1260 700 Output Total 200 Balance 2040 1260 700 Lab Results - Last 24 hrs: Laboratory Results - last 24 hr 02/26/21 02/26/21 Range/Units 06:15 06:15 WBC 3.25 L (4.0-11.0) K/uL RBC 3.45 L (4.50-5.90) M/uL Hgb 11.5 L (13.0-17.0) g/dL Hct 34.4 L (38.0-50.0) % MCV 99.7 H (80.0-98.0) fL MCH 33.3 H (27.0-32.0) pg MCHC 33.4 (31.0-37.0) g/dL RDW Std Deviation 55.3 (28.0-62.0) fl RDW Coeff of Mat 15 (11.0-15.0) % Plt Count 133 L (150-400) K/uL MPV 10.90 (7.40-12.00) fL Add Manual Diff YES Neutrophils % (Manual) 56 (48.0-80.0) % Band Neutrophils % 1 % Lymphocytes % (Manual) 22 (16.0-40.0) % Monocytes % (Manual) 17 H (0.0-15.0) % Eosinophils % (Manual) 4 (0.0-7.0) % Nucleated RBC % 0.0 /100WBC Absolute Seg Neuts 1.8 (1.4-5.7) Band Neutrophils # 0 Lymphocytes # (Manual) 0.7 (0.6-2.4) Monocytes # (Manual) 0.6 (0.0-0.8) Eosinophils # (Manual) 0.1 (0.0-0.7) Nucleated RBCs # 0 K/uL Sodium 138 (136-148) mmol/L Potassium 4.4 (3.5-5.1) mmol/L Chloride 102 (98-107) mmol/L Carbon Dioxide 27.7 (21.0-32.0) mmol/L BUN 9 (7.0-18.0) mg/dL Creatinine 0.9 (0.8-1.3) mg/dL Est Cr Clr Drug Dosing 64.37 mL/min Estimated GFR (MDRD) > 60.0 ml/min Glucose 132 H (74-106) mg/dL Calcium 8.5 (8.5-10.1) mg/dL Total Bilirubin 0.7 (0.2-1.0) mg/dL AST 25 (15-37) IU/L ALT 26 (14-63) IU/L Alkaline Phosphatase 69 (46-116) U/L Total Protein 7.3 (6.4-8.2) g/dL Albumin 3.6 (3.4-5.0) g/dL Globulin 3.7 (2.6-4.0) g/dL Albumin/Globulin Ratio 1.0 (0.9-1.6) UMESH Results - Last 24 hrs: Microbiology 02/24/21 08:30 Aerobic Blood Culture - Preliminary Blood - Venous - Lab Draw NO GROWTH AFTER 2 DAYS Anaerobic Blood Culture - Preliminary NO GROWTH AFTER 2 DAYS 02/24/21 07:48 Aerobic Blood Culture - Preliminary Blood - Venous NO GROWTH AFTER 2 DAYS Anaerobic Blood Culture - Preliminary NO GROWTH AFTER 2 DAYS Med Orders - Current: Current Medications Albuterol/Ipratropium (Albuterol/Ipratropium 3.0-0.5 Mg/3 Ml Neb Soln) 3 ml NEB Q4HRRT PRN PRN Reason: Dyspnea Azithromycin 500 mg/ Sodium (Chloride) 250 mls @ 250 mls/hr IV DAILY [facility] Last Admin: 02/26/21 09:01 Dose: 250 mls/hr Documented by: Ceftriaxone Sodium/Dextrose 1 (gm/ Premix) 50 mls @ 100 mls/hr IV Q24H [facility]ANG Last Admin: 02/25/21 13:42 Dose: 100 mls/hr Documented by: Pantoprazole Sodium 40 mg/ (Sodium Chloride) 10 mls @ 300 mls/hr IV Q12H TRANG Last Admin: 02/26/21 08:52 Dose: 300 mls/hr Documented by: Sodium Chloride (Normal Saline) 1,000 mls @ 100 mls/hr IV ASDIRECTED [facility] Last Admin: 02/26/21 04:29 Dose: 100 mls/hr Documented by: Sodium Chloride (Sodium Chloride 0.9% 10 Ml Syringe) 10 ml FLUSH ASDIRECTED PRN PRN Reason: Keep Vein Open Last Admin: 02/24/21 08:04 Dose: 10 ml Documented by: Sodium Chloride (Sodium Chloride 0.9% 2.5 Ml Syringe) 2.5 ml FLUSH ASDIRECTED PRN PRN Reason: Keep Vein Open Last Admin: 02/24/21 08:04 Dose: 2.5 ml Documented by: Discontinued Medications Albuterol/Ipratropium (Albuterol/Ipratropium 3.0-0.5 Mg/3 Ml Neb Soln) 3 ml NEB ONETIME ONE Stop: 02/24/21 07:59 Last Admin: 02/24/21 08:05 Dose: 3 ml Documented by: Albuterol/Ipratropium (Albuterol/Ipratropium 3.0-0.5 Mg/3 Ml Neb Soln) 3 ml NEB Q4HRRT [facility] Last Admin: 02/25/21 09:24 Dose: 3 ml Documented by: Bisacodyl (Bisacodyl 5 Mg Tab) 20 mg PO ONETIME ONE Stop: 02/25/21 10:01 Last Admin: 02/25/21 09:57 Dose: 20 mg Documented by: Fentanyl (Fentanyl 100 Mcg/2 Ml Sdv) Confirm Administered Dose 100 mcg .ROUTE .STK-MED ONE Stop: 02/26/21 06:55 Pantoprazole Sodium 80 mg/ (Sodium Chloride) 10 mls @ 300 mls/hr IV NOW ONE Stop: 02/24/21 13:05 Last Admin: 02/24/21 13:16 Dose: 300 mls/hr Documented by: Ceftriaxone Sodium/Dextrose 1 (gm/ Premix) 50 mls @ 100 mls/hr IV ONETIME ONE Stop: 02/24/21 13:33 Last Admin: 02/24/21 13:16 Dose: 100 mls/hr Documented by: Levofloxacin/Dextrose 750 mg/ (Premix) 150 mls @ 100 mls/hr IV Q24H [facility] Last Admin: 02/24/21 18:27 Dose: Not Given Documented by: Pantoprazole Sodium 40 mg/ (Sodium Chloride) 10 mls @ 300 mls/hr IV DAILY [facility] Iopamidol (Iopamidol 755 Mg/Ml 500 Ml Multipack Bottle) 100 ml IVPUSH ONETIME STA Stop: 02/24/21 15:54 Last Admin: 02/24/21 15:57 Dose: 100 ml Documented by: Ketamine HCl (Ketamine 500 Mg/10 Ml Mdv) Confirm Administered Dose 500 mg .ROUTE .STK-MED ONE Stop: 02/26/21 07:08 Lidocaine (Lidocaine 2% 5 Ml Sdv) Confirm Administered Dose 5 ml .ROUTE .STK-MED ONE Stop: 02/26/21 06:55 Polyethylene Glycol (Polyethylene Glycol 3350 Powder 17 Gm Packet) 119 gm PO ONETIME ONE Stop: 02/25/21 12:01 Last Admin: 02/25/21 12:02 Dose: 119 gm Documented by: Polyethylene Glycol (Polyethylene Glycol 3350 Powder 17 Gm Packet) 119 gm PO ONETIME ONE Stop: 02/25/21 16:01 Last Admin: 02/25/21 16:12 Dose: 119 gm Documented by: Propofol (Propofol 200 Mg/20 Ml Sdv) Confirm Administered Dose 200 mg .ROUTE .STK-MED ONE Stop: 02/26/21 06:55 Propofol (Propofol 200 Mg/20 Ml Sdv) Confirm Administered Dose 200 mg .ROUTE .STK-MED ONE Stop: 02/26/21 06:55 Propofol (Propofol 200 Mg/20 Ml Sdv) Confirm Administered Dose 200 mg .ROUTE .STK-MED ONE Stop: 02/26/21 06:58 - Exam General: Reports: Alert, Oriented, Cooperative HEENT: Reports: Mucous Membr. Moist/[place] Neck: Reports: Trachea Midline Lungs: Reports: Clear to Auscultation, Normal Respiratory Effort, Decreased Breath Sounds Cardiovascular: Reports: Regular Rate, Regular Rhythm GI/Abdominal Exam: Normal Bowel Sounds, Soft
--- NOTE | 2021-02-26 23:41 | OR ---
SURGEON: MATY BUCHANAN MD DATE OF PROCEDURE: 02/24/2021 PREOPERATIVE DIAGNOSIS: Gastrointestinal bleed. POSTOPERATIVE DIAGNOSES: Diverticulosis, arteriovenous malformation. PROCEDURES PERFORMED: Diagnostic esophagogastroduodenoscopy and colonoscopy. PRIMARY SURGEON: Endoscopist: Maty Buchanan MD ANESTHESIA: General. INSTRUMENT USED: Olympus endoscope and colonoscope. EXTENT OF EXAM: To the second portion of duodenum, to the cecum. PREPARATION: Good. LIMITATIONS: None. INDICATIONS FOR EXAMINATION: The patient is an 80-year-old male who presented to the emergency room with an acute on chronic COPD exacerbation, but also with melena. The patient underwent a diagnostic EGD back in June, this was normal. The patient has had on and off melena since then. He had a positive fecal occult blood test. He was admitted to the floor. The decision was made to proceed with diagnostic EGD and colonoscopy to look for source of his bleeding. I explained the procedure to the patient and his . I explained the expected perioperative course as well as the risks including bleeding, infection or damage to surrounding structures including perforation. He verbalized understanding and wished to proceed. PROCEDURE IN DETAIL: The patient was brought into the endoscopy suite and placed in the left lateral decubitus position. A time-out was completed verifying the patient's name, age, date of , allergies, and procedure to be performed. General anesthesia was induced and a bite block was placed in the patient's mouth. Continuous oxygen was provided via face mask throughout the procedure. After adequate sedation was achieved, a well-lubricated endoscope was placed in the patient's mouth and advanced under direct visualization to the second portion of duodenum. This appeared normal, a photograph was taken. The scope was then slowly withdrawn while examining the color, texture, anatomy and integrity of mucosa of the upper GI tract. The duodenum appeared normal. The scope was brought into the stomach and a photograph taken the pylorus and GE junction. Both appeared histologically normal. There was no evidence of ulceration or inflammation. There was no stigmata of bleeding. Biopsies were taken of the gastric antrum, body, and fundus and sent for histologic review and H. pylori testing. The scope was brought into the distal esophagus. The Z-line appeared normal and a photograph was taken. A biopsy was taken 1 cm above the Z-line and sent to pathology for histologic review. Grossly, the esophagus appeared normal with no evidence of christine esophagitis. The scope was removed and this portion of procedure terminated. A digital rectal exam was performed. This exam was within normal limits. A well-lubricated colonoscope was inserted into the rectum and advanced under direct visualization to the level of the cecum. He was noted in the proximal transverse colon close to the hepatic flexure to have what appeared to be an AVM. Photographs of this were taken. When I reached the cecum, I noted there to be bright red blood within the cap. A photograph of this was taken. I irrigated the area to be sure that the bright red bleeding was not due to scope trauma. I could see a small bruise from my scope, but there was no evidence of any scope trauma. I closely inspected the terminal ileum. I attempted to intubate it, was unable to do so. I did not note any fresh bleeding coming from the terminal ileum itself. After the cecal cap had been suctioned free of any blood, I continued to monitor the area. No active bleeding was noted. The scope was retroflexed within the cecum and a photograph of this was taken. The scope was then slowly withdrawn while examining the color, texture, anatomy and integrity of the mucosa from the cecum to the anal canal. Incidentally, the patient was noted to have increased vascularity within the ascending colon, but no other evidence of an AVM. Random biopsies were taken of the cecal cap, the ascending colon, transverse colon, descending colon and sigmoid colon and sent to pathology for histologic review. The patient had a few scattered diverticula within the sigmoid colon. The scope was brought into the rectum and retroflexed to allow visualization of the anal canal opening. This appeared normal and there was no evidence of hemorrhoidal bleeding. The scope was then straightened out and fully withdrawn. The cecum to anus time was 8 minutes. The patient tolerated the procedure well and was transferred to the PACU in stable condition. ENDOSCOPIC DIAGNOSES: Diverticulosis, arteriovenous malformation. RECOMMENDATIONS: The patient's hemoglobin is grossly stable. From my standpoint, he is okay to be discharged home per Medicine's discretion. We will follow up with the patient in 2 weeks for hemoglobin check and to discuss a possible GI referral for further workup of his ongoing intermittent GI bleed. KALI HERNANDEZ /[id number]
== END 2021-02-26 12:05 | disposition home or self-care (01) | DRG 190 ==
LOC: MW.ED 07:36 → MW.MS 13:35
PROVIDERS: ADMIT Student in an Organized Health Care Education/Training Program; ATTEND Student in an Organized Health Care Education/Training Program
PROC: 0DB58ZX Excision of Esophagus, Via Natural or Artificial Opening Endoscopic, Diagnostic (ICD-10-PCS; principal; 2021-02-24)
PROC: 0DB68ZX Excision of Stomach, Via Natural or Artificial Opening Endoscopic, Diagnostic (ICD-10-PCS; 2021-02-24)
PROC: 0DBK8ZX Excision of Ascending Colon, Via Natural or Artificial Opening Endoscopic, Diagnostic (ICD-10-PCS; 2021-02-24)
PROC: 0DBL8ZX Excision of Transverse Colon, Via Natural or Artificial Opening Endoscopic, Diagnostic (ICD-10-PCS; 2021-02-24)
PROC: 0DBN8ZX Excision of Sigmoid Colon, Via Natural or Artificial Opening Endoscopic, Diagnostic (ICD-10-PCS; 2021-02-24)
PROC: 0DBM8ZX Excision of Descending Colon, Via Natural or Artificial Opening Endoscopic, Diagnostic (ICD-10-PCS; 2021-02-24)
PROC: 0DBH8ZX Excision of Cecum, Via Natural or Artificial Opening Endoscopic, Diagnostic (ICD-10-PCS; 2021-02-24)
DX: J44.1 Chronic obstructive pulmonary disease with (acute) exacerbation (principal); K92.2 Gastrointestinal hemorrhage, unspecified; Z97.3 Presence of spectacles and contact lenses; K57.91 Diverticulosis of intestine, part unspecified, without perforation or abscess with bleeding; M10.9 Gout, unspecified; Z92.21 Personal history of antineoplastic chemotherapy; Z88.1 Allergy status to other antibiotic agents; Z88.2 Allergy status to sulfonamides; Z79.899 Other long term (current) drug therapy; K55.21 Angiodysplasia of colon with hemorrhage; Z66 Do not resuscitate; Z20.822 Contact with and (suspected) exposure to COVID-19; Z85.51 Personal history of malignant neoplasm of bladder; Z90.89 Acquired absence of other organs
CPT/HCPCS: 36415; 71045; 71275; 74176; 80053; 81001; 83605; 83690; 83880; 85025; 84484; 85379; 85610; 86850; 86900; 86901; 87040 ×2; 93005; 96365; 96368; 99285; C9113; J0696; U0002; 00813; 87045; 87046; 87449; 87899; 94640; 99100; A9270-GY; J0456; J2704; J3010; J7030; J7050; J7620-GY; Q9967

== ENCOUNTER 2023-04-13 10:43 | Emergency (ER) | payer MEDICARE ==
[2023-04-13 11:51] LABS: PH,VENOUS 7.4 (7.31-7.41)
[2023-04-13 11:55] LABS: HEMATOCRIT 32.3 % (42.0-52.0); HEMOGLOBIN 10.7 g/dL (14.0-18.0); MEAN CORPUSCULAR HEMOGLOBIN 34.3 pg (28.0-32.0); MEAN CORPUSCULAR HGB CONC 33.1 g/dL (32.0-36.0); MEAN CORPUSCULAR VOLUME 103.5 fL (83.0-99.0); MEAN PLATELET VOLUME 10.2 fL (9.4-12.4); PLATELET COUNT,PLT 132 K/uL (150-400); RED BLOOD CELL COUNT 3.12 M/uL (4.52-5.90); WHITE BLOOD CELL COUNT,WBC 3.23 K/uL (3.9-11.3)
[2023-04-13 12:03] LABS: INR 1.16 (0.86-1.11); PTT,PARTIAL THROMBOPLSTIN TIME 31.6 SEC (23.9-30.7)
[2023-04-13 12:29] LABS: ALBUMIN 3.4 g/dL (3.4-5.0); BILIRUBIN TOTAL 0.8 mg/dL (0.2-1.0); CARBON DIOXIDE,CO2 32.6 mmol/L (21.0-32.0); CREATININE 0.9 mg/dL (0.8-1.3); EST CRCL DRUG DOSING (CG) 62.19 mL/min; MAGNESIUM 1.7 mg/dL (1.8-2.4); POTASSIUM,K 4.6 mmol/L (3.5-5.1); PROTEIN TOTAL,TP 6.9 g/dL (6.4-8.2)
[2023-04-13 12:38] LABS: BAND PERCENT MAN 3 %; LYMPHOCYTES ABSOLUTE MAN 0.68 K/uL (1.00-4.80); LYMPHOCYTES PERCENT MAN 21 % (24-44); MONOCYTES ABSOLUTE MAN 0.87 K/uL (0.00-0.80); MONOCYTES PERCENT MAN 27 % (0-8); SEG NEUTROPHILS ABSOLUTE MAN 1.52 K/uL (1.80-7.70); SEG NEUTROPHILS PERCENT MAN 47 % (41-71)
[2023-04-13 12:39] LABS: BASOPHILS ABSOLUTE MAN 0.03 K/uL (0.00-0.20); BASOPHILS PERCENT MAN 1 % (0-1); EOSINOPHILS ABSOLUTE MAN 0.03 K/uL (0.00-0.45); EOSINOPHILS PERCENT MAN 1 % (0-6)
[2023-04-13] MEDS ORDERED: Iopamidol 755 MG/ML 500 ML Multipack Bottle IVPUSH STA (12:43)
[2023-04-13 13:15] LABS: CORONAVIRUS COVID-19 NAA NEGATIVE (NEGATIVE); INFLUENZA A NAA NEGATIVE (NEGATIVE); INFLUENZA B NAA NEGATIVE (NEGATIVE); RESPIRATORY SYNCYTIAL VIR NAA NEGATIVE (NEGATIVE)
== END 2023-04-13 15:04 | disposition home or self-care (01) ==
LOC: MW.ED 10:43
DX: R06.02 Shortness of breath (principal); J44.9 Chronic obstructive pulmonary disease, unspecified; Z20.822 Contact with and (suspected) exposure to COVID-19; Z79.899 Other long term (current) drug therapy; Z88.1 Allergy status to other antibiotic agents; Z88.2 Allergy status to sulfonamides
CPT/HCPCS: 0241U; 36415; 71275; 80053; 82803; 83735; 84484; 85025; 85610; 85730; 93005; 99285; Q9967

== ENCOUNTER 2023-06-05 09:27 | Emergency (ER) | payer MEDICARE, OTHER ==
[2023-06-05 10:39] LABS: C-REACTIVE PROTEIN 1.39 mg/dL (<0.3); CALCIUM 8.8 mg/dL (8.5-10.1); CARBON DIOXIDE,CO2 29.1 mmol/L (21.0-32.0); CREATININE 0.9 mg/dL (0.8-1.3); EST CRCL DRUG DOSING (CG) 62.19 mL/min; POTASSIUM,K 4.4 mmol/L (3.5-5.1)
[2023-06-05] MEDS: Sodium Chloride 0.9% 2.5 ML Syringe FLUSH PRN (10:40)
[2023-06-05] MEDS: Sodium Chloride 0.9% 10 ML Syringe FLUSH PRN (10:40)
[2023-06-05 11:03] LABS: HEMOGLOBIN 10.9 g/dL (14.0-18.0); MEAN CORPUSCULAR HEMOGLOBIN 33.1 pg (28.0-32.0); MEAN CORPUSCULAR HGB CONC 31.1 g/dL (32.0-36.0); MEAN CORPUSCULAR VOLUME 106.4 fL (83.0-99.0); MEAN PLATELET VOLUME 10.4 fL (9.4-12.4); PLATELET COUNT,PLT 137 K/uL (150-400); RED BLOOD CELL COUNT 3.29 M/uL (4.52-5.90); WHITE BLOOD CELL COUNT,WBC 5.79 K/uL (3.9-11.3)
[2023-06-05 11:05] LABS: BAND ABSOLUTE MAN 0.06; BAND PERCENT MAN 1 %; LYMPHOCYTES ABSOLUTE MAN 0.69 K/uL (1.00-4.80); LYMPHOCYTES PERCENT MAN 12 % (24-44); METAMYELOCYTE ABSOLUTE MAN 0.12; METAMYELOCYTE PERCENT MAN 2 %; MONOCYTES ABSOLUTE MAN 1.04 K/uL (0.00-0.80); MONOCYTES PERCENT MAN 18 % (0-8); MYELOCYTE ABSOLUTE MAN 0.06; MYELOCYTE PERCENT MAN 1 %; SEG NEUTROPHILS ABSOLUTE MAN 3.82 K/uL (1.80-7.70); SEG NEUTROPHILS PERCENT MAN 66 % (41-71)
== END 2023-06-05 11:36 | disposition home or self-care (01) ==
LOC: MW.ED 09:27
DX: L03.113 Cellulitis of right upper limb (principal); J44.9 Chronic obstructive pulmonary disease, unspecified; M70.21 Olecranon bursitis, right elbow; Z88.2 Allergy status to sulfonamides; Z88.8 Allergy status to other drugs, medicaments and biological substances; Z79.899 Other long term (current) drug therapy
CPT/HCPCS: 36415; 73080; 80048; 85025; 86140; 99283; J3490

== ENCOUNTER 2023-08-01 08:44 | Emergency (ER) | payer MEDICARE ==
[2023-08-01 09:09] LABS: HEMATOCRIT 34.6 % (42.0-52.0); HEMOGLOBIN 10.8 g/dL (14.0-18.0); MEAN CORPUSCULAR HEMOGLOBIN 33.9 pg (28.0-32.0); MEAN CORPUSCULAR HGB CONC 31.2 g/dL (32.0-36.0); MEAN CORPUSCULAR VOLUME 108.5 fL (83.0-99.0); MEAN PLATELET VOLUME 10.8 fL (9.4-12.4); PLATELET COUNT,PLT 167 K/uL (150-400); RED BLOOD CELL COUNT 3.19 M/uL (4.52-5.90); WHITE BLOOD CELL COUNT,WBC 12.51 K/uL (3.9-11.3)
[2023-08-01] MEDS ORDERED: propofoL 100 ML IV SCH ×2 (09:15→11:00)
[2023-08-01 09:16] LABS: INR 1.12 (0.86-1.11); PTT,PARTIAL THROMBOPLSTIN TIME 28.6 SEC (23.9-30.7)
[2023-08-01 09:18] LABS: LACTIC ACID 1.6 mmol/L (0.4-2.0)
[2023-08-01 09:27] LABS: A/G RATIO 1.2 (0.9-1.6); ALANINE AMINOTRANSFERASE,ALT 22 IU/L (14-63); ALKALINE PHOSPHATASE 91 U/L (46-116); ASPARTATE AMNIOTRANSFERASE,AST 17 IU/L (15-37); BILIRUBIN TOTAL 0.7 mg/dL (0.2-1.0); BLOOD UREA NITROGEN,BUN 14 mg/dL (7.0-18.0); CALCIUM 8.8 mg/dL (8.5-10.1); CARBON DIOXIDE,CO2 29.4 mmol/L (21.0-32.0); CHLORIDE,CL 101 mmol/L (98-107); CREATININE 1.1 mg/dL (0.8-1.3); ESTIMATED GFR 67 mL/min (>60); GLUCOSE RANDOM 183 mg/dL (74-106); LIPASE 30 U/L (16-77); POTASSIUM,K 4.2 mmol/L (3.5-5.1); PROTEIN TOTAL,TP 7.3 g/dL (6.4-8.2); SODIUM,NA 139 mmol/L (136-148)
[2023-08-01] MEDS: Sodium Chloride 0.9% 1,000 ML IV ONE ×2 (09:38→11:14)
[2023-08-01] MEDS: Sodium Chloride 0.9% 2.5 ML Syringe FLUSH PRN (09:38)
[2023-08-01] MEDS: Sodium Chloride 0.9% 10 ML Syringe FLUSH PRN (09:38)
[2023-08-01 09:39] LABS: APPEARANCE,URINE SLT CLOUDY; BILIRUBIN,URINE NEGATIVE (NEGATIVE); COLOR,URINE YELLOW; GLUCOSE,URINE NEGATIVE (NEGATIVE); KETONES,URINE NEGATIVE (NEGATIVE); LEUKOCYTE ESTERASE,URINE NEGATIVE (NEGATIVE); NITRITE,URINE NEGATIVE (NEGATIVE); OCCULT BLOOD,URINE LARGE (NEGATIVE); PH,URINE 5.5 (5.0-8.0); PROTEIN,URINE TRACE mg/dL (NEGATIVE); UROBILINOGEN,URINE 0.2 EU/dL (<2.0)
[2023-08-01] MEDS: propofoL 100 ML ONE (09:39)
[2023-08-01 09:41] LABS: LYMPHOCYTES ABSOLUTE MAN 5.25 K/uL (1.00-4.80); LYMPHOCYTES PERCENT MAN 42 % (24-44); MONOCYTES ABSOLUTE MAN 2.38 K/uL (0.00-0.80); MONOCYTES PERCENT MAN 19 % (0-8); MYELOCYTE ABSOLUTE MAN 0.13; MYELOCYTE PERCENT MAN 1 %; SEG NEUTROPHILS PERCENT MAN 36 % (41-71)
[2023-08-01 09:42] LABS: METAMYELOCYTE ABSOLUTE MAN 0.25; METAMYELOCYTE PERCENT MAN 2 %
[2023-08-01] MEDS: Pantoprazole 40 MG in Sodium Chloride 0.9% 10 ML IVPUSH SCH (09:45)
[2023-08-01] MEDS: Piperacillin/Tazobactam 4.5 GM in Sodium Chloride 0.9% 100 ML IV STA (09:45)
[2023-08-01 09:47] LABS: BACTERIA,URINE FEW (NEGATIVE); EPITHELIAL CELLS,URINE OCCASIONAL (NONE-FEW); RBC,URINE 20-30 (0-2/HPF); WBC,URINE 0-4 (0-5/HPF)
[2023-08-01] MEDS: methylPREDNISolone Sodium Succinate 125 MG/2 ML SDV IVPUSH ONE (10:58)
[2023-08-01 11:07] LABS: BICARBONATE,ARTERIAL 25 mEq/L (22-26); PCO2 ARTERIAL 56 mmHG (35-45); PO2 ARTERIAL 260 mmHG (80-105)
[2023-08-01] MEDS: Iopamidol 755 Mg/ML 100 ML Bottle IVPUSH ONE (11:13)
[2023-08-01] MEDS: Etomidate 2 MG/ML 10 ML SDV IVPUSH STA (11:30)
[2023-08-01] MEDS: Rocuronium 50 MG/5 ML Vial IVPUSH ONE (11:30)
[2023-08-01] MEDS: Rocuronium 100 MG/10 ML MDV IVPUSH ONE (11:31)
[2023-08-01] MEDS: propofoL 100 ML IV SCH (11:34)
[2023-08-01] MEDS: VANCOmycin 1.5 GM/300 ML 1.5 GM in Premix Bag 1 BAG IV ONE (12:00)
[2023-08-01 12:02] LABS: CORONAVIRUS COVID-19 NAA NEGATIVE (NEGATIVE); INFLUENZA A NAA NEGATIVE (NEGATIVE); INFLUENZA B NAA NEGATIVE (NEGATIVE); RESPIRATORY SYNCYTIAL VIR NAA NEGATIVE (NEGATIVE)
== END 2023-08-01 12:41 ==
LOC: MW.ED 08:44
DX: J96.01 Acute respiratory failure with hypoxia (principal); J44.1 Chronic obstructive pulmonary disease with (acute) exacerbation; Z88.1 Allergy status to other antibiotic agents; Z88.2 Allergy status to sulfonamides; Z79.899 Other long term (current) drug therapy; Z75.8 Other problems related to medical facilities and other health care
CPT/HCPCS: 0241U; 31500; 36415; 36600; 51702; 70450; 71045; 71275; 80053; 81001; 82803; 83605; 83690; 84145; 84484; 85025; 85610; 85730; 87040; 93005; 96361; 96365; 96367; 96375; 99291; C9113; J2543; J2704; J2930; J3370; J3490; J7030; Q9967; 93010

== ENCOUNTER 2024-03-05 02:13 | Inpatient (IN) | payer MEDICARE ==
[2024-03-05] MEDS ORDERED: Sodium Chloride 0.9% 10 ML Syringe FLUSH PRN (02:14)
[2024-03-05] MEDS: methylPREDNISolone Sodium Succinate 125 MG/2 ML SDV IVPUSH ONE (02:27)
[2024-03-05] MEDS: Albuterol/Ipratropium 3.0-0.5 MG/3 ML Neb Soln NEB ONE ×2 (02:27→06:27)
[2024-03-05 02:30] LABS: BASE EXCESS VENOUS 14.1 (-2.0-3.0); PH,VENOUS 7.36 (7.31-7.41)
[2024-03-05 02:32] LABS: HEMATOCRIT 27.8 % (42.0-52.0); HEMOGLOBIN 8.6 g/dL (14.0-18.0); MEAN CORPUSCULAR HEMOGLOBIN 34.1 pg (28.0-32.0); MEAN CORPUSCULAR HGB CONC 30.9 g/dL (32.0-36.0); MEAN CORPUSCULAR VOLUME 110.3 fL (83.0-99.0); MEAN PLATELET VOLUME 11.8 fL (9.4-12.4); NRBC ABSOLUTE 0.02 K/uL (0.00-0.02); NRBC PERCENT 0.2 /100WBC (0.0-0.2); PLATELET COUNT,PLT 27 K/uL (150-400); RED BLOOD CELL COUNT 2.52 M/uL (4.52-5.90); WHITE BLOOD CELL COUNT,WBC 12.49 K/uL (3.9-11.3)
[2024-03-05 03:03] LABS: BAND PERCENT MAN 4 %; LYMPHOCYTES ABSOLUTE MAN 2.12 K/uL (1.00-4.80); LYMPHOCYTES PERCENT MAN 17 % (24-44); SEG NEUTROPHILS ABSOLUTE MAN 7.99 K/uL (1.80-7.70); SEG NEUTROPHILS PERCENT MAN 64 % (41-71)
[2024-03-05 03:04] LABS: ATYPICAL LYMPHOCYTES FEW; MONOCYTES ABSOLUTE MAN 1.87 K/uL (0.00-0.80); MONOCYTES PERCENT MAN 15 % (0-8)
[2024-03-05] MEDS: Ondansetron 4 MG/2 ML SDV IVPUSH ONE (03:04)
[2024-03-05] MEDS: cefTRIAXone 2 GM in Sodium Chloride 0.9% 50 ML IV ONE (03:05)
[2024-03-05 03:25] LABS: A/G RATIO 0.9 (0.9-1.6); ALANINE AMINOTRANSFERASE,ALT 60 IU/L (14-63); ALBUMIN 3.2 g/dL (3.4-5.0); ALKALINE PHOSPHATASE 67 U/L (46-116); ASPARTATE AMNIOTRANSFERASE,AST 25 IU/L (15-37); BILIRUBIN TOTAL 1.2 mg/dL (0.2-1.0); BLOOD UREA NITROGEN,BUN 18 mg/dL (7.0-18.0); CALCIUM 9.1 mg/dL (8.5-10.1); CARBON DIOXIDE,CO2 39.4 mmol/L (21.0-32.0); CHLORIDE,CL 99 mmol/L (98-107); CREATININE 0.7 mg/dL (0.8-1.3); ESTIMATED GFR 91 mL/min (>60); GLUCOSE RANDOM 139 mg/dL (74-106); LIPASE 194 U/L (16-77); MAGNESIUM 1.7 mg/dL (1.8-2.4); POTASSIUM,K 3.8 mmol/L (3.5-5.1); PRO B-TYPE NATRIUR PEPT,BNPPRO 3422 pg/mL (0-450); PROTEIN TOTAL,TP 6.6 g/dL (6.4-8.2); SODIUM,NA 142 mmol/L (136-148)
[2024-03-05] MEDS: Doxycycline 100 MG in Sodium Chloride 0.9% 100 ML IV ONE (03:48)
[2024-03-05 04:23] LABS: BASE EXCESS VENOUS 13.3 (-2.0-3.0); PH,VENOUS 7.3 (7.31-7.41)
[2024-03-05] MEDS: Iopamidol 755 MG/ML 500 ML Multipack Bottle IVPUSH ONE (05:28)
[2024-03-05] MEDS: Furosemide 40 MG/4 ML VIAL IVPUSH ONE (05:45)
[2024-03-05 07:27] LABS: APPEARANCE,URINE SLT CLOUDY; BILIRUBIN,URINE NEGATIVE (NEGATIVE); COLOR,URINE YELLOW; GLUCOSE,URINE NEGATIVE (NEGATIVE); KETONES,URINE NEGATIVE (NEGATIVE); LEUKOCYTE ESTERASE,URINE NEGATIVE (NEGATIVE); NITRITE,URINE NEGATIVE (NEGATIVE); OCCULT BLOOD,URINE LARGE (NEGATIVE); PH,URINE 5.5 (5.0-8.0); PROTEIN,URINE NEGATIVE (NEGATIVE); UROBILINOGEN,URINE 0.2 EU/dL (<2.0)
[2024-03-05 07:48] LABS: BACTERIA,URINE OCCASIONAL (NEGATIVE); EPITHELIAL CELLS,URINE RARE (NONE-FEW); RBC,URINE 70-80 (0-2/HPF); WBC,URINE 0-3 (0-5/HPF)
[2024-03-05] MEDS ORDERED: Morphine 2 MG/ML SYRINGE IVPUSH PRN (08:07)
[2024-03-05] MEDS ORDERED: Ondansetron 4 MG/2 ML SDV IVPUSH PRN (08:07)
[2024-03-05] MEDS: Furosemide 40 MG/4 ML VIAL IVPUSH SCH (09:46)
[2024-03-05 10:42] LABS: CORONAVIRUS COVID-19 NAA NEGATIVE (NEGATIVE); INFLUENZA A NAA NEGATIVE (NEGATIVE); INFLUENZA B NAA NEGATIVE (NEGATIVE)
[2024-03-05] MEDS: Albuterol/Ipratropium 3.0-0.5 MG/3 ML Neb Soln NEB SCH (13:08)
[2024-03-05] MEDS: Doxycycline 100 MG in Sodium Chloride 0.9% 100 ML IV SCH (15:32)
[2024-03-05] MEDS: Scopalamine 1mg/3day Transdermal Patch TRDERM PRN (15:33)
[2024-03-06] MEDS: cefTRIAXone 1 GM in Sodium Chloride 0.9% 50 ML IV SCH (01:38)
[2024-03-06 07:18] LABS: MEAN CORPUSCULAR HEMOGLOBIN 34.3 pg (28.0-32.0); MEAN CORPUSCULAR HGB CONC 30.4 g/dL (32.0-36.0); MEAN CORPUSCULAR VOLUME 112.7 fL (83.0-99.0); MEAN PLATELET VOLUME 12.3 fL (9.4-12.4); NRBC ABSOLUTE 0.04 K/uL (0.00-0.02); NRBC PERCENT 0.3 /100WBC (0.0-0.2); PLATELET COUNT,PLT 27 K/uL (150-400); RED BLOOD CELL COUNT 2.04 M/uL (4.52-5.90); WHITE BLOOD CELL COUNT,WBC 12.42 K/uL (3.9-11.3)
[2024-03-06 07:48] LABS: CREATININE 0.8 mg/dL (0.8-1.3); POTASSIUM,K 3.8 mmol/L (3.5-5.1)
[2024-03-06 07:49] LABS: A/G RATIO 0.9 (0.9-1.6); ALBUMIN 2.8 g/dL (3.4-5.0); BILIRUBIN TOTAL 0.9 mg/dL (0.2-1.0); CALCIUM 8.5 mg/dL (8.5-10.1); EST CRCL DRUG DOSING (CG) 68.74 mL/min; PROTEIN TOTAL,TP 5.8 g/dL (6.4-8.2)
[2024-03-06 08:21] LABS: CARBON DIOXIDE,CO2 50.4 mmol/L (21.0-32.0)
[2024-03-06 08:35] LABS: LYMPHOCYTES ABSOLUTE MAN 0.62 K/uL (1.00-4.80); LYMPHOCYTES PERCENT MAN 5 % (24-44); METAMYELOCYTE ABSOLUTE MAN 0.25; METAMYELOCYTE PERCENT MAN 2 %; MONOCYTES ABSOLUTE MAN 1.49 K/uL (0.00-0.80); MONOCYTES PERCENT MAN 12 % (0-8); MYELOCYTE ABSOLUTE MAN 0.62; MYELOCYTE PERCENT MAN 5 %; SEG NEUTROPHILS ABSOLUTE MAN 9.44 K/uL (1.80-7.70); SEG NEUTROPHILS PERCENT MAN 76 % (41-71)
[2024-03-06] MEDS ORDERED: Aloe Vera/Sodium Chloride Gel 14.1 GM Tube NAS PRN (08:43)
[2024-03-06] MEDS: methylPREDNISolone Sodium Succinate 40 MG/1 ML SDV IVPUSH SCH (10:12)
[2024-03-06] MEDS: Albuterol/Ipratropium 3.0-0.5 MG/3 ML Neb Soln NEB PRN (15:38)
[2024-03-07] MEDS: guaiFENesin 600 MG Tab.ER PO PRN (20:44)
[2024-03-08 10:25] LABS: HEMATOCRIT 24.6 % (42.0-52.0); HEMOGLOBIN 7.6 g/dL (14.0-18.0); MEAN CORPUSCULAR HEMOGLOBIN 33.9 pg (28.0-32.0); MEAN CORPUSCULAR HGB CONC 30.9 g/dL (32.0-36.0); MEAN CORPUSCULAR VOLUME 109.8 fL (83.0-99.0); MEAN PLATELET VOLUME 12.2 fL (9.4-12.4); NRBC ABSOLUTE 0.05 K/uL (0.00-0.02); NRBC PERCENT 0.7 /100WBC (0.0-0.2); PLATELET COUNT,PLT 48 K/uL (150-400); RED BLOOD CELL COUNT 2.24 M/uL (4.52-5.90); WHITE BLOOD CELL COUNT,WBC 7.56 K/uL (3.9-11.3)
[2024-03-08 11:08] LABS: LYMPHOCYTES ABSOLUTE MAN 0.23 K/uL (1.00-4.80); LYMPHOCYTES PERCENT MAN 3 % (24-44); METAMYELOCYTE ABSOLUTE MAN 0.08; METAMYELOCYTE PERCENT MAN 1 %; MONOCYTES PERCENT MAN 8 % (0-8); MYELOCYTE ABSOLUTE MAN 0.38; MYELOCYTE PERCENT MAN 5 %; SEG NEUTROPHILS ABSOLUTE MAN 6.27 K/uL (1.80-7.70); SEG NEUTROPHILS PERCENT MAN 83 % (41-71)
[2024-03-09] MEDS: Doxycycline 100 MG Cap PO SCH (16:59)
[2024-03-09] MEDS: Cefdinir 300 MG Cap PO SCH (20:34)
[2024-03-10] MEDS: Nystatin Topical Powder 15 GM Bottle TOP SCH (11:24)
[2024-03-11] MEDS: predniSONE 10 MG Tab PO SCH (08:32)
[2024-03-11] MEDS: Tiotropium BR/Olodaterol HCL 4 GM Inhalation Spray 2.5mcg/1 dose; 10 doses INH SCH (17:02)
[2024-03-13] MEDS: Morphine 2 MG/ML SYRINGE IVPUSH PRN (21:13)
== END 2024-03-14 11:18 | DRG 193 ==
LOC: MW.ED 02:13 → MW.ICU 06:33 → MW.MS 07:59
PROVIDERS: ADMIT Internal Medicine; ATTEND Family Medicine
PROC: 5A09357 Assistance with Respiratory Ventilation, Less than 24 Consecutive Hours, Continuous Positive Airway Pressure (ICD-10-PCS; principal; 2024-03-05)
DX: J18.9 Pneumonia, unspecified organism (principal); J96.01 Acute respiratory failure with hypoxia; J96.02 Acute respiratory failure with hypercapnia; J44.1 Chronic obstructive pulmonary disease with (acute) exacerbation; R79.89 Other specified abnormal findings of blood chemistry; R79.0 Abnormal level of blood mineral; R60.0 Localized edema; J44.0 Chronic obstructive pulmonary disease with (acute) lower respiratory infection; I50.9 Heart failure, unspecified; Z51.5 Encounter for palliative care; Z66 Do not resuscitate; H91.90 Unspecified hearing loss, unspecified ear; H54.7 Unspecified visual loss; M10.9 Gout, unspecified; D69.6 Thrombocytopenia, unspecified; C67.9 Malignant neoplasm of bladder, unspecified; D64.9 Anemia, unspecified; Z88.1 Allergy status to other antibiotic agents; Z88.2 Allergy status to sulfonamides; Z99.81 Dependence on supplemental oxygen; Z79.899 Other long term (current) drug therapy; Z90.89 Acquired absence of other organs
CPT/HCPCS: 0240U; 36415; 71045; 71275; 80053; 81001; 82803; 82947; 83605; 83690; 83735; 83880; 84484; 85025; 87040; 87428; 93005; 94660; 93010; 99223; 99231; 99232; 99233; 99238; 99285; A9270-GY; J0696; J1940; J2270; J2405; J2919; J3490; J7620-GY; Q9967